=== PATIENT | female | born 1990 | race African-American/Black ===

== ENCOUNTER 2016-10-09 19:55 | Outpatient (CLI) | payer MEDICAID ==
[2016-10-09 20:56] LABS: APPEARANCE,URINE SLIGHTLY-CLOUDY; BILIRUBIN,URINE NEGATIVE (NEGATIVE); CALCIUM OXALATE CRYSTALS,URINE RARE /HPF; GLUCOSE, URINE NEGATIVE (NEGATIVE); KETONES,URINE NEGATIVE (NEGATIVE); LEUKOCYTE ESTERASE,URINE NEGATIVE (NEGATIVE); NITRITE,URINE NEGATIVE (NEGATIVE); PROTEIN,URINE NEGATIVE (NEGATIVE); UROBILINOGEN,URINE NEGATIVE mg/dL (<2.0)
--- NOTE | 2016-10-10 04:45 | L&D General Admission ---
General Admit Datetime Report Generated by CPN: 10/10/2016 04:45 INFORMATION Para: 3 (10/09/2016 21:23:Crystal Yakov, RN) Baby, Number in Womb: 1 (10/09/2016 21:23:Crystal [place], RN) CARE Height (in): 64 (10/09/2016 20:07:QS system process) DEMOGRAPHICS Home (10/09/2016 19:55:QS system process) LABS Hemoglobin: 8.9 L (10/09/2016 20:15:QS system process) Hematocrit: 28.5 L (10/09/2016 20:15:QS system process) MCV: 73 L (10/09/2016 20:15:QS system process) HIV Results: nonreactive (10/09/2016 20:52:Candis Nagy RN)
--- NOTE | 2016-10-10 04:45 | L&D Current Admission ---
Current Admit Datetime Report Generated by CPN: 10/10/2016 04:45 ADMISSION INFORMATION Chief Complaint: Contractions (10/09/2016 20:06:Crystal Yakov, SABRA)
--- NOTE | 2016-10-10 04:45 | L&D Discharge Summary ---
OB Discharge Summary Datetime Report Generated by CPN: 10/10/2016 04:45 DISCHARGE DIAGNOSIS Diagnosis/Symptoms: False Labor Diagnoses/Symptoms Other: Pt educated on dehydration and common discomforts of , pt instructed to go down to ED to rule out blood clot in left calf for pain and hx of blood clot. Gestation: 36.2 Number of Babies in Womb: 1 Parity: 3 DIET/ACTIVITY/RESTRICTIONS Diet: Regular Activity: Normal Activity TEACHING/INSTRUCTIONS/REFERRALS Instructions Given To: Yuni Isabella Instructions Understood: Patient Verbalized Understanding Referrals: None Educational Materials- Other: NST, Dehydration, labor DISCHARGE INFORMATION Discharged AMA: No Discharge Date/Time: 10/09/2016 21:24 Discharged To: Home Discharge Provider Name: Davis Accompanied By: self Discharge Method: Ambulatory Condition: Stable FOLLOW UP INFORMATION Follow Up With: [facility] Follow Up On: Tomorrow Follow Up Phone Number: [facility] -
--- NOTE | 2016-10-10 04:45 | L&D Admission Assessment ---
LD ADM ASMT Datetime Report Generated by CPN: 10/10/2016 04:45 PATIENT ASSESSMENT Assessment Type: Triage (10/09/2016 20:06:Crystal [place], RN) WEIGHT Weight (lb): 191 (10/09/2016 20:07:QS system process) Weight (kg): 86.8 (10/09/2016 20:07:QS system process) BMI: 32.8 (10/09/2016 20:07:QS system process) PAIN Pain Scale: 4 (10/09/2016 20:06:Crystal [place], RN) Pain Presence: Intermittent (10/09/2016 20:06:Crystal [place], RN) Pain Type: Contraction (10/09/2016 20:06:Crystal [place], RN) Pain Location: Abdomen; Back (10/09/2016 20:06:Crystal Yakov, RN) Pain Goal: 2 (10/09/2016 20:06:Crystal [place], RN) Pain Related to Contraction: Yes (10/09/2016 20:06:Crystal [place], RN) CONTRACTIONS Frequency (min): 0 (10/09/2016 20:42:Crystal [place], RN) Frequency (min): 0 (10/09/2016 20:20:Crystal [place], RN) Frequency (min): Q10 minutes (10/09/2016 20:06:Crystal Yakov, RN) Resting Tone [place]: Relaxed (10/09/2016 20:42:Crystal Yakov, RN) Resting Tone [place]: Relaxed (10/09/2016 20:20:Candis Nagy RN) Contraction Comments: pt sitting up drinking in bed (10/09/2016 20:42:Candis Nagy RN) VAGINAL EXAM Membranes Status: Intact (10/09/2016 20:06:Candis Nagy RN) NEURO Level of Consciousness: Fully Conscious (10/09/2016 20:06:Candis Nagy RN) DTR's/Clonus: DTRs 1+; No Clonus (10/09/2016 20:06:Candis Nagy RN) Headache: Denies (Annotations: Pt has pituitary tumor) (10/09/2016 20:06:Candis Nagy RN) Dizziness: No (10/09/2016 20:06:Candis Nagy RN) Blurred Vision: No (10/09/2016 20:06:Candis Nagy RN) Extremity Numbness/Tingling : None (10/09/2016 20:06:Candis Nagy RN) Extremity Movement: Full Range of Motion (10/09/2016 20:06:Crystal Yakov, RN) CARDIOVASCULAR Heart Rhythm: Regular (10/09/2016 20:06:Candis Nagy RN) Nailbeds: [place] (10/09/2016 20:06:Candis Nagy RN) Capillary Refill: Less than 3 Seconds (10/09/2016 20:06:Crystal Yakov, RN) Lower Extremities Edema: None (10/09/2016 20:06:Crystal Yakov, RN) Lower Extremities Edema Degree: None (10/09/2016 20:06:Crystal Yakov RN) Upper Extremities Edema: None (10/09/2016 20:06:Crystal [place] RN) Upper Extremities Edema Degree: None (10/09/2016 20:06:Crystal Yakov, RN) Facial Edema: None (10/09/2016 20:06:Crystal [place], RN) Benjamin's Sign Left Leg: Positive (Annotations: calf measurement 15.5 inches) (10/09/2016 20:06:Crystal Yakov RN) Benjamin's Sign Right Leg: Negative (Annotations: calf measurement 15in ) (10/09/2016 20:06:Crystal Yakov, RN) DVT RISK ASSESSMENT DVT Risk Age: Age less than 41 years (10/09/2016 20:06:Candis Nagy RN) DVT Risk BMI: BMI<31 (10/09/2016 20:06:Candis Nagy RN) DVT Risk Surgery: None Applicable (10/09/2016 20:06:Candis Nagy RN) DVT Risk Other: Patient History of SVT, DVT or PE (10/09/2016 20:06:Candis Nagy RN) DVT Risk Total: 3 (10/09/2016 20:06:QS system process) DVT Risk Text: High Risk (20-40%)- Consider stockings, compresssion device, pharmacological therapy per hospital policy (10/09/2016 20:06:QS system process) RESPIRATORY Respiratory Effort: Unlabored; Regular Rhythm; Equal Expansion (10/09/2016 20:06:Candis Nagy RN) Breath Sounds, Left: Clear and Equal (10/09/2016 20:06:Crystal [place], RN) Breath Sounds, Right: Clear and Equal (10/09/2016 20:06:Crystal Yakov, RN) Cough Productivity: None (10/09/2016 20:06:Crystal Yakov, RN) GASTROINTESTINAL Nausea/Vomiting: Denies (10/09/2016 20:06:Candis Nagy RN) Bowel Sounds: Normoactive (10/09/2016 20:06:Candis Nagy RN) RUQ Epigastric Pain: Denies (10/09/2016 20:06:Candis Nagy RN) Response to Antacids: Pain Relieved (10/09/2016 20:06:Candis Nagy RN) Bowel Patterns: Soft, Formed Stool (10/09/2016 20:06:Candis Nagy RN) Hemorrhoids: Present (10/09/2016 20:06:Candis Nagy RN) Diet Type: Regular diet (10/09/2016 20:06:Candis Nagy RN) Last Meal: 10/09/2016 15:00 (10/09/2016 20:06:Candis Nagy RN) GENITOURINARY Bladder: Nondistended (10/09/2016 20:06:Candis Nagy RN) Vaginal Bleeding: Small (10/09/2016 20:06:Candis Nagy RN) Vaginal Discharge Amount: Small (10/09/2016 20:06:Candis Nagy RN) Vaginal Discharge Color: White (10/09/2016 20:06:Candis Nagy RN) Vaginal Discharge Character: Thick (10/09/2016 20:06:Crystal Yakov, RN) INTEGUMENTARY Skin Color: Normal for Race (10/09/2016 20:06:Crystal Yakov, RN) Skin Temperature: Warm (10/09/2016 20:06:Candis [place], RN) Skin Moisture: Dry (10/09/2016 20:06:Crystal [place], RN) GLORY SKIN ASSESSMENT Glory Scale Sensory Perception: No Impairment- Responds to verbal commands. Has no sensory deficit which would limit ability to feel or voice pain or discomfort (10/09/2016 20:06:Candis Nagy RN) Glory Scale Moisture: Rarely Moist- Skin is usually dry. Linen only requires changing at routine intervals (10/09/2016 20:06:Candis Nagy RN) Glory Scale Activity: Walks Frequently- Walks outside the room at least twice a day and inside room at least every 2 hours during the day. (10/09/2016 20:06:Candis Nagy RN) Glory Scale Mobility: No Limitations- Makes major and frequent changes in position without assistance (10/09/2016 20:06:Candis Nagy RN) Glory Scale Nutrition: Excellent- Eats most of every meal. Never refuses a meal. Usually eats a total of 4 or more servings of meat and dairy products. Occasionally eats between meals. Does not require supplementation (10/09/2016 20:06:Candis Nagy RN) Glory Scale Friction and Shear: No Apparent Problem- Moves in bed and in chair independently and has sufficient muscle strength to lift up completely during move. Maintains good position in bed or chair at all times (10/09/2016 20:06:Candis Nagy RN) Glory Scale Total: 23 (10/09/2016 20:06:QS system process) Glory Scale Risk: No Risk of Pressure Ulcer Noted at this Time (10/09/2016 20:06:QS system process) SUPPORT Emotional State: Calm/Relaxed (10/09/2016 20:06:Candis Nagy RN) SAFETY Call [place] Within Reach: Yes (10/09/2016 20:06:Candis Nagy RN) Side Rails Up: Yes (10/09/2016 20:06:Candis Nagy RN) Bed Wheels Locked: Yes (10/09/2016 20:06:Candis Nagy RN) Arm Bands Present: Yes (10/09/2016 20:06:Candis Nagy RN) Isolation: [place] (10/09/2016 20:06:Candis Nagy RN) FALL SCREEN Fall Risk History of Falling: (0) No (10/09/2016 20:06:Candis Nagy RN) Fall Risk Secondary Diagnosis: (0) No (10/09/2016 20:06:Candis Nagy RN) Fall Risk Ambulatory Aid: (0) None/Bedrest/Wheelchair/Nurse Assist (10/09/2016 20:06:Candis Nagy RN) Fall Risk IV Therapy: (0) No (10/09/2016 20:06:Candis Nagy RN) Fall Risk Gait: (0) Normal/Bedrest/Immobile (10/09/2016 20:06:Candis Nagy RN) Fall Risk Mental Status: (0) Oriented to Own Ability (10/09/2016 20:06:Candis Nagy RN) Fall Risk Score: 0 (10/09/2016 20:06:QS system process) Fall Risk Score Definition: No Risk: No action required (10/09/2016 20:06:QS system process) RECENT TRAVEL/INFECTIOUS DISEASE Recent Exp Communicable Disease: No (10/09/2016 20:06:Candis Nagy RN) Cough or Fever: No (10/09/2016 20:06:Candis Nagy RN) Foreign Travel Past 10 Days: No (10/09/2016 20:06:Candis Nagy RN) Open Wounds or Sores: No (10/09/2016 20:06:Candis Nagy RN) Prior Antibiotic Resistance Tx: No (10/09/2016 20:06:Candis Nagy RN) Cultures Obtained: Not Applicable (10/09/2016 20:06:Candis Nagy RN) Isolation Initiated: No (10/09/2016 20:06:Candis Nagy RN) Pt/Family Education: Not Applicable (10/09/2016 20:06:Candis Nagy RN) BABY A FHR Baseline Rate (bpm) Baby A: 120 (10/09/2016 20:20:Candis Nagy RN) Variability Baby A: Moderate 6-25 bpm (10/09/2016 20:20:Candis Nagy RN) Accelerations Baby A: 15X15 (10/09/2016 20:20:Candis Nagy RN) Decelerations Baby A: None (10/09/2016 20:20:Candis Nagy RN)
--- NOTE | 2016-10-10 04:45 | L&D Flow Sheet ---
LD Flowsheet Datetime Report Generated by CPN: 10/10/2016 04:45 Datetime: 10/09/2016 21:14 Vital Signs Stage of : OB Triage (Candis Nagy RN) Communication Comments: Report given to Amina charge nurse in ED, pt offered wheelchair, pt wishes to ambulate to ED. pt off of the unit. Pt care relinquished. (Candis Nagy RN) Datetime: 10/09/2016 21:07 Vital Signs Stage of : OB Triage (Candis Nagy RN) Teaching Instructional Method: Verbal; Patient Instructed; Verbalized Understanding (Candis Nagy RN) Plan of Care: Plan of Care Discussed (Candis Nagy RN) Pain Management: Pain Scale/Goals; Comfort Measures (Candis Nagy RN) Related: Common Discomforts of ; Maternal Physical Changes; Hydration; Activity and Rest (Candis Nagy RN) Teaching Comments: Educated pt on common discomforts of and the need for increased hydration, pt verbalized understanding, instructed pt to go down to ED to rule out blood clot. pt verbalized understanding and stated she wishes to ambulate to ED. (Crystal Yakov, RN) Datetime: 10/09/2016 21:02 Vital Signs Stage of : OB Triage (Crystal Yakov, RN) Provider Reviewed Strip: Yes (Crystal [place], RN) Strip Reviewed by: Laura Nagy RN (Crystal [place], RN) Communication Communication: RN Reviewed Strip; Provider Orders Received; Call/Page Placed to Provider (Candis Nagy RN) Provider Notified (Name): Ryan (Candis Nagy RN) Notification Reason: Status Update; Status; Pain (Candis Nagy RN) Communication Comments: Notified Dr. Davis of pt complaint of contractions and calf pain in left calf. Ruled out active labor. Received orders to have pt go to ED for pain in calf due to Hx of blood clot. (Candis Nagy RN) Datetime: 10/09/2016 20:42 Uterine Activity Monitor Mode: External; Palpation (Candis Nagy RN) Frequency (min): 0 (Candis Nagy RN) Resting Tone (Palpate): Relaxed (Candis Nagy RN) Contraction Comments: pt sitting up drinking in bed (Candis Nagy RN) I/O Interventions: Clear Liquids Given (Candis Nagy RN) Datetime: 10/09/2016 20:20 Uterine Activity Monitor Mode: External; Palpation (Crystal [place], RN) Frequency (min): 0 (Crystal Yakov, RN) Resting Tone (Palpate): Relaxed (Crystal Yakov, RN) Assessment A Monitor Mode: External US (Crystal [place], RN) FHR Baseline Rate : 120 (Crystal Yakov, RN) Variability: Moderate 6-25 bpm (Crystal [place], RN) Accelerations: 15X15 (Crystal [place], RN) Decelerations: None (Crystal [place], RN) Patient Care Patient Position/Activity: Left Lateral; Semi-Fowlers (Crystal [place], RN) Datetime: 10/09/2016 20:15 NBP Sys/Rachel/Mean (mmHg): 130 (QS system process) : 64 (QS system process) : 88 (QS system process) Pulse: 77 (QS system process) Respirations: 18 (Crystal [place], RN) LaborFlag: Antepartum (QS system process) Datetime: 10/09/2016 20:06 Vital Signs Stage of : Antepartum (Crystal Yakov, RN) Frequency (min): Q10 minutes (Crystal Yakov, RN) Pain Pain Scale: 4 (Crystal [place], RN) Pain Presence: Intermittent (Crystal Yakov, RN) Pain Type: Contraction (Crystal Yakov, RN) Pain Location: Abdomen; Back (Crystal [place], RN) Pain Goal: 2 (Crystal [place], RN) Pain Relief Measures: Comfort Measures (Crystal Yakov, RN) Pain Coping: Talking Through Contractions (Crystal Yakov, RN) Vaginal Exam Membrane Status: Intact (Candis Nagy, SABRA) Vaginal Bleeding: None (Candis Nagy, RN) Maternal Assessment Level of Consciousness: Fully Conscious (Candis Nagy RN) DTR's/Clonus: DTRs 1+; No Clonus (Candis Nagy RN) Headache: Denies (Annotations: Pt has pituitary tumor) (Candis Nagy RN) Breath Sounds, Left: Clear and Equal (Candis Nagy RN) Breath Sounds, Right: Clear and Equal (Candis Nagy RN) Nausea/Vomiting: Denies (Candis Nagy RN) RUQ Epigastric Pain: Denies (Candis Nagy RN) LaborFlag: Antepartum (QS system process)
--- NOTE | 2016-10-10 04:46 | Antepartum Discharge Summary ---
Antepartum DC Datetime Report Generated by CPN: 10/10/2016 04:45 DIET/ACTIVITY/RESTRICTIONS Diet: Regular (10/09/2016 21:23:Crystal Yakov, RN) Activity: Normal Activity (10/09/2016 21:23:Crystal Yakov, RN) TEACHING/INSTRUCTIONS/REFERRALS Instructions Given To: Yuni [place] (10/09/2016 21:23:Crystal [place], RN) Instructions Understood: Patient Verbalized Understanding (10/09/2016 21:23:Crystal [place], RN) Referrals: None (10/09/2016 21:23:Candis Nagy RN) Educational Materials- Other: NST, Dehydration, labor (10/09/2016 21:23:Candis Nagy RN) DISCHARGE INFORMATION Discharged AMA: No (10/09/2016 21:23:Candis Nagy RN) Discharge Date/Time: 10/09/2016 21:24 (10/09/2016 21:23:Candis Nagy RN) Discharged To: Home (10/09/2016 21:23:Candis Nagy RN) Discharge Provider Name: Davis (10/09/2016 21:23:Candis Nagy RN) Discharge Method: Ambulatory (10/09/2016 21:23:Candis Nagy RN) Condition: Stable (10/09/2016 21:23:Candis Nagy RN) FOLLOW UP INFORMATION Follow Up With: [facility] (10/09/2016 21:23:Candis Nagy RN) Follow Up On: Tomorrow (10/09/2016 21:23:Candis Nagy RN) Follow Up Phone Number: [facility] - (10/09/2016 21:23:Candis Nagy RN)
--- NOTE | 2016-10-10 11:51 | Non Stress Test Report ---
Non Stress Test Datetime Report Generated by CPN: 10/10/2016 11:50 EGA NST: 33.3 Indication for Study: Ordered by Provider Temperature - NST: 98.4 Pulse - NST: 77 RESP - NST: 18 NBPSYS NST: 130 NBPDIA NST: 64 Monitor Explained: Monitor Explained; Test Explained; Patient Verbalized Understanding Time on Monitor: 10/09/2016 20:13 Time off Monitor: 10/09/2016 21:07 NST Duration: 59925 NST Interventions: PO Hydration Physician Notified NST: Davis Movement : Present Contraction Frequency : 2 FHR Baseline : 120 Accelerations : 15X15 Decelerations : None Variability : Moderate 6-25bpm NST Review: Meets Criteria for Reactive NST NST Review and Verified By : Jailyn Cantor RN NST Results: Reactive Report Trigger: Send Report
[2016-10-11 15:58] LABS: URINE BARBITURATES SCREEN NEGATIVE; URINE METHADONE SCREEN NEGATIVE; URINE PHENCYCLIDINE SCREEN NEGATIVE
== END 2016-10-09 21:14 | disposition other institution (70) ==
LOC: LC 19:55
PROVIDERS: ATTEND Obstetrics & Gynecology
PROC: 4A1HXCZ Monitoring of Products of Conception, Cardiac Rate, External Approach (ICD-10-PCS; principal; 2016-10-09)
DX: O47.03 False labor before 37 completed weeks of gestation, third trimester (principal); O99.89 Other specified diseases and conditions complicating pregnancy, childbirth and the puerperium; M79.662 Pain in left lower leg; Z3A.36 36 weeks gestation of pregnancy
CPT/HCPCS: 59025; 80307; 81001

== ENCOUNTER 2016-10-09 21:26 | Emergency (ER) | payer MEDICAID ==
--- NOTE | 2016-10-09 21:48 | ER Document Report ---
ED Medical Screen (RME) - General Stated Complaint: POSSIBLE BLOOD CLOTS Time seen by provider: 21:45 Mode of Arrival: Ambulatory Information source: Patient Notes: 25 yo female 36 weeks sent down from labor and delivery, she was in for labor, which was negative for actic elabor. She is c/of left posterior knee pain which radiates up and down leg for 2 eweks. Hx DVT in that leg with last . On lovenox already,40 mg (?) twice daily. TRAVEL OUTSIDE OF THE [place] IN LAST 30 DAYS: No - Related Data Allergies/Adverse Reactions: shrimp Allergy (Uncoded 09/19/16 10:53) Past Medical History Pulmonary Medical History: Reports: Hx Asthma, Hx Bronchitis Renal/ Medical History: Reports: Hx Kidney Stones - Immunizations Hx Diphtheria, Pertussis, Tetanus Vaccination: Yes
[2016-10-09 22:26] LABS: ABSOLUTE EOSINOPHILS # (AUTO) 0.2 10^3/uL (0.0-0.6); ABSOLUTE LYMPHOCYTES (AUTO) 2.1 10^3/uL (0.5-4.7); ABSOLUTE MONOCYTES (AUTO) 0.4 10^3/uL (0.1-1.4); ABSOLUTE NEUT (AUTO) 3.4 10^3/uL (1.7-8.2); BASOPHILS % (AUTO) 0.6 % (0-2); EOSINOPHILS % (AUTO) 2.5 % (0-6); HEMATOCRIT 28.5 % (36.0-47.0); HEMOGLOBIN 8.9 g/dL (12.0-15.5); HGB HCT DIFFERENCE -1.8; LYMPHOCYTES % (AUTO) 34.7 % (13-45); MEAN CORPUSCULAR HEMOGLOBIN 22.7 pg (27.0-33.4); MEAN CORPUSCULAR HGB CONC 31.2 g/dL (32.0-36.0); MEAN CORPUSCULAR VOLUME 73 fl (80-97); MONOCYTES % (AUTO) 6.8 % (3-13); RED BLOOD COUNT 3.91 10^6/uL (3.72-5.28); SEGMENTED NEUTROPHILS % (AUTO) 55.4 % (42-78); WHITE BLOOD COUNT 6.1 10^3/uL (4.0-10.5)
[2016-10-09 22:31] LABS: PROTHROMBIN TIME 12.9 SEC (11.4-15.4)
[2016-10-09 22:32] LABS: PARTIAL THROMBOPLASTIN TIME 30.3 SEC (23.5-35.8)
--- NOTE | 2016-10-09 22:48 | ER Document Report ---
ED General - General Chief Complaint: Leg Pain Stated Complaint: POSSIBLE BLOOD CLOTS Mode of Arrival: Ambulatory Information source: Patient Notes: Patient presents to the emergency department from L&D. She reports she was up in L&D because she thought she was in active labor but discovered she was not. She was sent to the emergency department with complaints of leg pain. She reports history of DVTs with her last . Patient is currently taking Lovenox daily. She denies fever vomiting diarrhea trauma. She denies recent trip. She reports she's had the leg pain for 2 weeks. TRAVEL OUTSIDE OF THE [place] IN LAST 30 DAYS: No - HPI Onset: Other - 2 weeks Onset/Duration: Persistent Quality of pain: Achy Severity: Severe Pain Level: 4 Associated symptoms: None Exacerbated by: Denies Relieved by: Denies Similar symptoms previously: Yes Recently seen / treated by doctor: Yes - Related Data Allergies/Adverse Reactions: shrimp Allergy (Uncoded 10/09/16 21:50) Past Medical History - General Information source: Patient Last Menstrual Period: due 11/04/2016 - Social History Smoking Status: Never Smoker Cigarette use (# per day): No Frequency of alcohol use: None Drug Abuse: None Lives with: Family Family History: Reviewed & Not Pertinent Patient has suicidal ideation: No Patient has homicidal ideation: No - Past Medical History Cardiac Medical History: Reports: Hx DVT Pulmonary Medical History: Reports: Hx Asthma, Hx Bronchitis Renal/ Medical History: Reports: Hx Kidney Stones Surgical Hx: Negative - Immunizations Hx Diphtheria, Pertussis, Tetanus Vaccination: Yes Hx Pneumococcal Vaccination: 04/10/14 Review of Systems - Review of Systems Notes: Review HPI for review of systems., All other systems negative Physical Exam - Vital signs Vitals: Temp Pulse Resp BP Pulse Ox 97.4 F 74 17 132/75 H 98 10/09/16 21:50 10/09/16 21:50 10/09/16 21:50 10/09/16 21:50 10/09/16 21:50 - Notes Notes: PHYSICAL EXAMINATION: GENERAL: Well-appearing and in no acute distress HEAD: Atraumatic, normocephalic. EYES: Pupils equal round extraocular movements intact, sclera anicteric, conjunctiva are normal. ENT: nares patent, Moist mucous membranes. NECK: Normal range of motion, supple without lymphadenopathy LUNGS: CTAB and equal. No wheezes rales or rhonchi. HEART: Regular rate and rhythm without murmurs ABDOMEN: , reports contractions that come/go. EXTREMITIES: Normal range of motion, no pitting edema. No cyanosis. LLL with tenderness to upper calf, no erythema, no warmth, neg homans NEUROLOGICAL: Cranial nerves grossly intact. Normal sensory/motor PSYCH: Normal mood, normal affect. SKIN: Warm, Dry, normal turgor, no rashes or lesions noted Course - Re-evaluation Re-evalutation: 10/09/16 22:53 Patient waiting for Doppler, tylenol ordered for leg pain. 10/10/16 Patient instructed on results. Patient instructed to follow up with her SIZE MAKER this week. She verbalized understanding denies pain at this time. - Vital Signs Vital signs: Temp Pulse Resp BP Pulse Ox 97.8 F 71 16 118/64 99 10/10/16 00:36 10/10/16 00:36 10/10/16 00:36 10/10/16 00:36 10/10/16 00:36 - Laboratory Result Diagrams: 10/09/16 20:15 10/09/16 20:15 Laboratory results interpreted by me: 10/09/16 10/09/16 20:15 20:15 Hgb 8.9 L Hct 28.5 L MCV 73 L MCH 22.7 L MCHC 31.2 L RDW 16.0 H Total Protein 6.1 L Albumin 3.0 L - Diagnostic Test Radiology reviewed: Reports reviewed - IMPRESSION: NO EVIDENCE DVT OR SVT IN THE LEFT LEG Discharge - Discharge Clinical Impression: Left leg pain Condition: Stable Disposition: HOME, SELF-CARE Additional Instructions: *You have been evaluated for left leg pain *Negative doppler, no DVT *Rest /Elevate your leg *Follow up with 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 *Return to ED for worsening condition, changes, needs Forms: Elevated Blood Pressure, Return to Work Referrals: BOBBY STEARNS MD [Primary Care Provider] - Follow up in 3-5 days
[2016-10-09 22:51] LABS: ALANINE AMINOTRANSFERASE 32 U/L (9-52); ALKALINE PHOSPHATASE 126 U/L (38-126); ANION GAP 12 (5-19); ASPARTATE AMINO TRANSFERASE 22 U/L (14-36); BILIRUBIN,TOTAL 0.7 mg/dL (0.2-1.3); BLOOD UREA NITROGEN 7 mg/dL (7-20); CALCIUM 9.4 mg/dL (8.4-10.2); CARBON DIOXIDE 22 mmol/L (22-30); CHLORIDE 105 mmol/L (98-107); GLUCOSE 88 mg/dL (75-110); POTASSIUM 3.9 mmol/L (3.6-5.0); SODIUM 138.7 mmol/L (137-145); TOTAL PROTEIN 6.1 g/dL (6.3-8.2)
[2016-10-09] MEDS ORDERED: ACETAMINOPHEN 325 MG TABLET PO ONE (22:53)
[2016-10-10 00:38] VITALS: BP 118/64
== END 2016-10-10 00:35 | disposition home or self-care (01) ==
LOC: ER 21:26 → EEVIPCON 21:26 → ER 10-10 00:35
DX: M79.605 Pain in left leg (principal); Z79.899 Other long term (current) drug therapy
CPT/HCPCS: 99284; 36415; 85025; 85610; 85730; 80053; 93971; J3490

== ENCOUNTER 2016-10-21 15:37 | Emergency (ER) | payer MEDICAID ==
[2016-10-21 16:02] VITALS: BP 129/65
--- NOTE | 2016-10-21 16:08 | ER Document Report ---
ED Medical Screen (RME) - General Stated Complaint: DIFFICULTY BREATHING Time seen by provider: 16:04 Mode of Arrival: Ambulatory Information source: Patient Notes: 25-year-old female presents to ED for shortness of breath cough wheezing and vomiting with abdominal cramping. She is 38 weeks . States she went up to labor and delivery and they sent her down to ED to check out the coughing and wheezing before they would check her out. Patient states she's had the coughing and wheezing for 3 days with a runny nose. States she started out with vomiting then she started with the coughing and wheezing. Patient states on 3 days ago she had a fever of 102.2 but has not had a fever since then. I have greeted and performed a rapid initial assessment of this patient. A comprehensive ED assessment and evaluation of the patient, analysis of test results and completion of medical decision making process will be conducted by an additional ED providers. TRAVEL OUTSIDE OF THE [place] IN LAST 30 DAYS: No - Related Data Allergies/Adverse Reactions: shrimp Allergy (Uncoded 10/09/16 21:50) Past Medical History - Past Medical History Cardiac Medical History: Reports: Hx DVT Pulmonary Medical History: Reports: Hx Asthma, Hx Bronchitis Renal/ Medical History: Reports: Hx Kidney Stones - Immunizations Hx Diphtheria, Pertussis, Tetanus Vaccination: Yes Physical Exam - Vital signs Vitals: Temp Pulse Resp BP Pulse Ox 97.3 F 86 20 129/65 H 100 10/21/16 16:01 10/21/16 16:01 10/21/16 16:01 10/21/16 16:01 10/21/16 16:01 Course - Vital Signs Vital signs: Temp Pulse Resp BP Pulse Ox 97.3 F 86 20 129/65 H 100 10/21/16 16:01 10/21/16 16:01 10/21/16 16:01 10/21/16 16:01 10/21/16 16:01
== END 2016-10-21 17:55 | disposition left against medical advice (07) ==
LOC: ER 15:37
DX: Z53.9 Procedure and treatment not carried out, unspecified reason (principal); R06.02 Shortness of breath; R05 Cough; R06.2 Wheezing; R11.10 Vomiting, unspecified; R10.9 Unspecified abdominal pain; Z3A.38 38 weeks gestation of pregnancy; R50.9 Fever, unspecified
CPT/HCPCS: 99281

== ENCOUNTER → 2016-10-21 | Outpatient (CLI) | payer MEDICAID | LOC: LC 15:09 | PROVIDERS: ATTEND Obstetrics & Gynecology | DX: Z53.9 Procedure and treatment not carried out, unspecified reason (principal) ==

== ENCOUNTER 2016-10-24 16:11 | Outpatient (CLI) | payer MEDICAID ==
--- NOTE | 2016-10-24 16:19 | Non Stress Test Report ---
Non Stress Test Datetime Report Generated by CPN: 10/24/2016 16:19 DEMOGRAPHIC EGA NST: 36.2 INDICATION Indication for Study: Ordered by Provider VITAL SIGNS Temperature - NST: 98.4 Pulse - NST: 77 RESP - NST: 18 NBPSYS NST: 130 NBPDIA NST: 64 MONITORING Monitor Explained: Monitor Explained; Test Explained; Patient Verbalized Understanding Time on Monitor: 10/09/2016 20:13 Time off Monitor: 10/09/2016 21:07 NST Duration: 54 NST INTERVENTIONS NST Interventions: PO Hydration Physician Notified NST: Davis BABY A: [id number] BABY A Movement : Present Contraction Frequency : 2 FHR Baseline : 120 Accelerations : 15X15 Decelerations : None Variability : Moderate 6-25bpm NST Review: Meets Criteria for Reactive NST NST Review and Verified By : Jailyn Cantor RN NST Results: Reactive NST REPORT Report Trigger: Send Report
[2016-10-24 16:48] LABS: APPEARANCE,URINE CLEAR; BILIRUBIN,URINE NEGATIVE (NEGATIVE); GLUCOSE, URINE NEGATIVE (NEGATIVE); KETONES,URINE NEGATIVE (NEGATIVE); LEUKOCYTE ESTERASE,URINE NEGATIVE (NEGATIVE); NITRITE,URINE NEGATIVE (NEGATIVE); PROTEIN,URINE NEGATIVE (NEGATIVE); URINE SPECIFIC GRAVITY 1.014; UROBILINOGEN,URINE NEGATIVE mg/dL (<2.0)
[2016-10-24 16:55] LABS: AMNISURE (ROM) NEGATIVE (NEGATIVE)
[2016-10-24 17:11] LABS: URINE BARBITURATES SCREEN NEGATIVE; URINE METHADONE SCREEN NEGATIVE; URINE PHENCYCLIDINE SCREEN NEGATIVE
--- NOTE | 2016-10-24 17:39 | Non Stress Test Report ---
Non Stress Test Datetime Report Generated by CPN: 10/24/2016 17:39 DEMOGRAPHIC EGA NST: 38.3 INDICATION Indication for Study: Ordered by Provider; Other MONITORING Monitor Explained: Monitor Explained; Test Explained; Patient Verbalized Understanding Time on Monitor: 10/24/2016 16:37 Time off Monitor: 10/24/2016 17:26 NST Duration: 49 NST INTERVENTIONS NST Interventions: PO Hydration; Reposition Patient Physician Notified NST: Dr. Rock BABY A Movement : Present Contraction Frequency : irregular FHR Baseline : 145 Accelerations : 15X15 Decelerations : None Variability : Moderate 6-25bpm NST Review: Meets Criteria for Reactive NST NST Review and Verified By : Andrea Carr RN NST Results: Reactive NST REPORT Report Trigger: Send Report
== END 2016-10-24 17:33 | disposition home or self-care (01) ==
LOC: LC 16:11
PROVIDERS: ATTEND Obstetrics & Gynecology
PROC: 4A1HXCZ Monitoring of Products of Conception, Cardiac Rate, External Approach (ICD-10-PCS; principal; 2016-10-24)
DX: O47.1 False labor at or after 37 completed weeks of gestation (principal); Z3A.38 38 weeks gestation of pregnancy
CPT/HCPCS: 59025; 80307; 81005; 84112

== ENCOUNTER 2016-11-04 04:33 | Inpatient (IN) | payer MEDICAID ==
[2016-11-04] MEDS ORDERED: PENICILLIN G POTASSIUM 5,000,000 UNIT in DEXTROSE 5%-WATER 100 ML IV ONE (04:46)
[2016-11-04] MEDS ORDERED: RINGERS SOLUTION,LACTATED 1,000 ML IV ONE (04:46)
[2016-11-04] MEDS ORDERED: RINGERS SOLUTION,LACTATED 1,000 ML IV PRN (04:46)
[2016-11-04] MEDS ORDERED: OXYTOCIN/NORMAL SALINE 20 UNIT/1,000 ML RTUINJ ONE ×2 (04:47→06:21)
[2016-11-04] MEDS ORDERED: LIDOCAINE 1% INJ-PF (10 MG/ML) 30 ML SDV ONE (04:47)
[2016-11-04] MEDS ORDERED: MISOPROSTOL 0.2 MG TABLET ONE (04:47)
[2016-11-04] MEDS ORDERED: PENICILLIN G-K 5 MILLION UNIT VIAL ONE (04:48)
[2016-11-04] MEDS ORDERED: OXYTOCIN 10 UNIT/ML VIAL ONE (04:48)
[2016-11-04 05:17] LABS: ABSOLUTE BASOPHILS # (AUTO) 0.1 10^3/uL (0.0-0.2); ABSOLUTE EOSINOPHILS # (AUTO) 0.1 10^3/uL (0.0-0.6); ABSOLUTE LYMPHOCYTES (AUTO) 4.8 10^3/uL (0.5-4.7); ABSOLUTE NEUT (AUTO) 3.4 10^3/uL (1.7-8.2); BASOPHILS % (AUTO) 0.6 % (0-2); EOSINOPHILS % (AUTO) 1.4 % (0-6); HEMATOCRIT 29.4 % (36.0-47.0); HEMOGLOBIN 9.2 g/dL (12.0-15.5); HGB HCT DIFFERENCE -1.8; LYMPHOCYTES % (AUTO) 51.7 % (13-45); MEAN CORPUSCULAR HEMOGLOBIN 22.4 pg (27.0-33.4); MEAN CORPUSCULAR HGB CONC 31.3 g/dL (32.0-36.0); MEAN CORPUSCULAR VOLUME 72 fl (80-97); MONOCYTES % (AUTO) 10.3 % (3-13); RED CELL DISTRIBUTION WIDTH 16.7 % (11.5-14.0); WHITE BLOOD COUNT 9.3 10^3/uL (4.0-10.5)
[2016-11-04 05:22] LABS: APPEARANCE,URINE CLOUDY; BILIRUBIN,URINE NEGATIVE (NEGATIVE); GLUCOSE, URINE NEGATIVE (NEGATIVE); KETONES,URINE NEGATIVE (NEGATIVE); LEUKOCYTE ESTERASE,URINE LARGE (NEGATIVE); NITRITE,URINE NEGATIVE (NEGATIVE); PROTEIN,URINE 30 mg/dL (NEGATIVE); URINE SPECIFIC GRAVITY 1.012; UROBILINOGEN,URINE NEGATIVE mg/dL (<2.0)
[2016-11-04] MEDS ORDERED: IBUPROFEN 800 MG TABLET ONE (05:38)
[2016-11-04 05:44] LABS: URINE BARBITURATES SCREEN NEGATIVE; URINE METHADONE SCREEN NEGATIVE; URINE OPIATES LOW NEGATIVE; URINE PHENCYCLIDINE SCREEN NEGATIVE
[2016-11-04] MEDS ORDERED: ZOLPIDEM TARTRATE 5 MG TABLET PO PRN (06:54)
[2016-11-04] MEDS ORDERED: ACETAMINOPHEN WITH CODEINE #3 TABLET PO PRN (06:54)
[2016-11-04] MEDS ORDERED: OXYTOCIN/NORMAL SALINE 1,000 ML IV PRN (06:54)
[2016-11-04] MEDS ORDERED: MEASLES,MUMPS&RUBELLA VACC/PF 0.5 ML VIAL SUBCUT PRN (06:54)
[2016-11-04] MEDS ORDERED: BENZOCAINE/MENTHOL AEROSOL SPRAY 56 ML TOP PRN (06:54)
[2016-11-04] MEDS ORDERED: DIBUCAINE 1% OINTMENT 28 GM TP PRN (06:54)
[2016-11-04] MEDS ORDERED: DIPH/PERTUSS(ACELL)/TETANUS VAC/PF 0.5 ML SYR (>=10YO) IM PRN (06:54)
[2016-11-04] MEDS ORDERED: ACETAMINOPHEN WITH CODEINE #3 TABLET ONE (07:12)
--- NOTE | 2016-11-04 08:01 | L&D Flow Sheet ---
LD Flowsheet Datetime Report Generated by CPN: 11/04/2016 08:00 Datetime: 11/04/2016 07:32 NBP Sys/Rachel/Mean (mmHg): 122 (QS system process) : 79 (QS system process) : 96 (QS system process) Pulse: 78 (QS system process) Pain Assessment Comments: Pt c/o shooting pain down Rt thigh. Waterproofer assessed leg, no redness, bruising, or heat noted. Asked pt to report any worsening pain. (Crystal Maldonado RN) Datetime: 11/04/2016 07:17 Pain [facility]: 5 [facility]: [facility]termittent ([facility] Pain Type: Cramping ([facility] ) Pain Location: Abdomen ([facility] Pain Goal: 0 ([facility] ) Pain Relief Measures: Pain Medication Given; Comfort Measures ([facility]) Datetime: 11/04/2016 07:11 NBP Sys/Rachel/Mean (mmHg): 120 (QS system process) : 78 (QS system process) : 94 (QS system process) Pulse: 70 (QS system process) Datetime: 11/04/2016 06:17 NBP Sys/Rachel/Mean (mmHg): 139 (QS system process) : 74 (QS system process) : 94 (QS system process) Pulse: 74 (QS system process) Datetime: 11/04/2016 06:10 Communication Additional Nursing Comments: Del of viable female. (Lilli Clif, RN) Datetime: 11/04/2016 06:01 NBP Sys/Rachel/Mean (mmHg): 127 (QS system process) : 82 (QS system process) : 97 (QS system process) Pulse: 80 (QS system process) Datetime: 11/04/2016 05:46 NBP Sys/Rachel/Mean (mmHg): 130 (QS system process) : 89 (QS system process) : 106 (QS system process) Pulse: 86 (QS system process) Respirations: 18 (Lilli Clif, RN) Datetime: 11/04/2016 05:39 Frequency (min): q 2 (Lilli Clif, RN) Pain Pain Scale: 5 (Lilli Clif, RN) Pain Presence: Intermittent (Lilli Clif, RN) Pain Type: Sharp (Lilli Clif, RN) Pain Location: Abdomen (Lilli Clif, RN) Pain Coping: Breathing Through Contractions (Lilli Clif, RN) Vaginal Bleeding: Scant (Lilli Clif, RN) Maternal Assessment Level of Consciousness: Fully Conscious (Lilli Clif, RN) DTR's/Clonus: DTRs 1+ (Lilli Clif, RN) Headache: Denies (Lilli Clif, RN) Breath Sounds, Left: Clear and Equal (Lilli Clif, RN) Breath Sounds, Right: Clear and Equal (Lilli Clif, RN) Nausea/Vomiting: Present (Annotations: states vomited twice at home.) (Lilli Clif, RN) RUQ Epigastric Pain: Denies (Lilli Clif, RN) Datetime: 11/04/2016 05:31 NBP Sys/Rachel/Mean (mmHg): 132 (QS system process) : 91 (QS system process) : 106 (QS system process) Pulse: 80 (QS system process) Datetime: 11/04/2016 05:16 Vital Signs Stage of : Recovery (Lilli Clif, RN) NBP Sys/Rachel/Mean (mmHg): 131 (QS system process) : 82 (QS system process) : 102 (QS system process) Pulse: 106 (QS system process) Respirations: 18 (Lilli Clif, RN) Pain Pain Scale: 0 (Lilli Clif, RN) Datetime: 11/04/2016 05:12 NBP Sys/Rachel/Mean (mmHg): 129 (QS system process) : 73 (QS system process) : 96 (QS system process) Pulse: 93 (QS system process) LaborFlag: Labor (QS system process) Datetime: 11/04/2016 05:09 Communication Comments: Nsy called for delivery due to meconium (Siri Lattibeaudeir, RN) Datetime: 11/04/2016 05:06 Vaginal Exam Membrane Status: Meconium (Lilli Clif, RN) Membranes Rupture Method: Artificial (Lilli Clif, RN) Amniotic Fluid Color: Moderate Meconium (Lilli Clif, RN) Membrane Comments: per Dr. Jaramillo (Lilli Clif, RN) Datetime: 11/04/2016 05:02 Uterine Activity Monitor Mode: External (Lilli Clif, RN) Frequency (min): 1.5-3 (Lilli Clif, RN) Quality: Moderate to Strong (Lilli Clif, RN) Duration (sec): 50-70 (Lilli Clif, RN) Resting Tone (Palpate): Relaxed (Lilli Clif, RN) Assessment A Monitor Mode: External US (Lilli Clif, RN) FHR Baseline Rate : 125 (Lilli Clif, RN) FHR Baseline Changes: No Baseline Change (Lilli Clif, RN) Variability: Moderate 6-25 bpm (Lilli Clif, RN) Accelerations: 15X15 (Lilli Clif, RN) Decelerations: None (Lilli Clif, RN) Datetime: 11/04/2016 04:55 Patient Care Comments: Consents signed. (Lilli Clif, RN) Datetime: 11/04/2016 04:54 Medications Antibiotics: Penicillin IV (Units) @ 5,000,000 (Lilli Clif, RN) Datetime: 11/04/2016 04:53 Patient Care IV/Blood Work: IV Started (Lilli Menezes RN) Patient Care Comments: 18 g started in R arm with 2nd attempt. (Lilli Menezes RN) Datetime: 11/04/2016 04:47 NBP Sys/Rachel/Mean (mmHg): 134 (QS system process) : 79 (QS system process) : 100 (QS system process) Pulse: 96 (QS system process) LaborFlag: Labor (QS system process)
--- NOTE | 2016-11-04 08:14 | Delivery Summary ---
Del Sum A-C Datetime Report Generated by CPN: 11/04/2016 08:13 ADMISSION DATA Chief Complaint: Uterine Contractions Indication for Induction: Not Applicable Admission Impression: Term, Intrauterine ; Active Labor; Intact Membranes Admit Provider Comments: PCN for unknown GBS status DELIVERY PERSONNEL Delivery Doctor:: Dorian Jaramillo DO Labor and Delivery Nurse:: Lilli Menezes RNgun striper Nurse:: Umu Cantor RN Manager Visual/AUTOMOBILE ASSEMBLY SUPERVISOR: Keya Semar, STONE CUTTER MATERNAL INFORMATION Delivery Anesthesia: Local Medications After Delivery: Pitocin Drip 20 Units/1000ml NSS Estimated Blood Loss (ml): 200 Maternal Complications: Precipitous Labor (<3hrs) Provider Comments: of viable female in FRANCO position Placenta delievered spontaneous and intact with 3v cord Fundus firm LABOR SUMMARY EDC: 11/04/2016 00:00 No. Babies in Womb: 1 Attempted: No Labor Anesthesia: None LABOR INFORMATION Reason for Induction: Not Applicable Oxytocin: N/A Group B Beta Strep: Unknown Antibiotics # of Doses: 1 Antibiotics Time of Last Dose: 0454 Name of Antibiotic Given: PCN Steroids Given: None Reason Steroids Not Administered: Not Applicable MEMBRANES Membranes Rupture Method: Artificial Rupture of Membranes: 11/04/2016 05:06 Length of Rupture (hr): 0.07 Amniotic Fluid Color: Moderate Meconium Amniotic Fluid Amount: Small Amniotic Fluid Odor: Normal STAGES OF LABOR Stage 3 hr: 0 Stage 3 min: 3 VAGINAL DELIVERY Episiotomy: None Laceration Extension: N/A Other Laceration: Clitoral Laceration Repair: Yes Laceration Repair Note: repaired with 3-0 chromic in usual fashion with good hemostasis Sponge Count Correct: N/A Sharps Count Correct: Yes CSECTION DELIVERY Primary Indication: N/A Secondary Indication: N/A CSection Incidence: N/A Labor: N/A Elective: N/A CSection Incision: N/A BABY A INFORMATION Infant Delivery Date/Time: 11/04/2016 05:10 Method of Delivery: Vaginal Born in Route : No : N/A Forceps: N/A Vacuum Extraction: N/A Shoulder Dystocia : No PRESENTATION/POSITION BABY A Presentation: Cephalic Cephalic Presentation: Vertex Vertex Position: Left Occipital Anterior Breech Presentation: N/A PLACENTA INFORMATION BABY A Placenta Delivery Time : 11/04/2016 05:13 Placenta Method of Delivery: Spontaneous Placenta Status: Delivered SCORES BABY A Heart Rate 1 min: >100 bpm Resp Effort 1 min: Good Cry Reflex Irritability 1 min: Cough or Sneeze or Pulls Away Muscle Tone 1 min: Active Motion Color 1 min: Body [place], Extremities Blue Resuscitation Effort 1 min: Tactile Stimulation SCORE 1 MIN: 9 Heart Rate 5 min: >100 bpm Resp Effort 5 min: Good Cry Reflex Irritability 5 min: Cough or Sneeze or Pulls Away Muscle Tone 5 min: Active Motion Color 5 min: Body [place], Extremities Blue Resuscitation Effort 5 min: Tactile Stimulation SCORE 5 MIN: 9 INFORMATION BABY A Gestational Age at Delivery: 40.0 Gestational Status: Full Term- 39- 40.6 Weeks Outcome : Liveborn Condition : Stable Infant Sex: Female IDENTIFICATION BABY A Verification Date/Time: 11/04/2016 05:17 ID Band Number: [id number] Mother's Name Verified: Yes Infant RN Verifying Infant: SZoey Watson, RN _ C. Fore, RN WEIGHT/LENGTH BABY A Birthweight (gm): 2910 Weight (lb): 6 Weight (oz): 7 Length (in): 19.50 Length (cm): 49.53 CORD INFORMATION BABY A No. Cord Vessels: 3 Nuchal Cord : N/A Cord Blood Taken: Yes-For Eval (Mom's Blood Type - or O+) Infant Suction: Mouth; Nose ASSESSMENT BABY A Complications: None Physical Findings at Delivery: Within Normal Limits Respirations: Appears Normal Skin to Skin: Yes Skin to Skin Time (min): Baby back skin to skin and feeding baby formula. Personnel Adviser/ALS Called : No Infant Care By: Jerri Cantor RN Transferred To: Remains with Mother BABY B INFORMATION : N/A SIGNATURES Signature: with User ID: [email or web address]
[2016-11-04] MEDS ORDERED: PENICILLIN G POTASSIUM 2,500,000 UNIT in DEXTROSE 5%-WATER 50 ML IV SCH (08:47)
[2016-11-04] MEDS ORDERED: PENICILLIN G-K 5 MILLION UNIT VIAL IV SCH (09:00)
--- NOTE | 2016-11-04 09:25 | Admission Physical ---
Datetime Report Generated by CPN: 11/04/2016 09:25 CURRENT ADMISSION Chief Complaint: Uterine Contractions Indication for Induction: Not Applicable Admit Plan: Admit to Unit; Initiate Labor Protocol ALLERGIES Medication Allergies: No Medication Allergies: shrimp (11/04/2016) Latex: No Latex Allergies Food Allergies: shellfish Environmental Allergies: no OBSTETRICAL HISTORY EDC: 11/04/2016 00:00 : 5 Para: 3 Term: 2 : 1 SAB: 1 IAB: 0 Ectopic: 0 Livin Cesareans: 0 VBACs: 0 Multiple Births: 0 Gestational Diabetes: No Rh Sensitization: No Incompetent Cervix: Yes BONI: No Infertility: No ART Treatment: No Uterine Anomaly: No IUGR: No Hx Previous C/S: No Macrosomia: No Hx Loss/Stillborn: No PIH: Yes Hx : No Placenta Previa/Abruption: No Depression/PP Depression: Yes PTL/PROM: No Post Hemorrhage: No Current Procedures: Ultrasound; NST Obstetrical History Comments: G1 SAB G2 01/15/2013, NVD, girl 6lb 5oz 37.2 weeks G3 04/08/2014, NVD, girl 6lbs 2oz 38.2 weeks G4 10/2015, NVD, girl 5lbs 35-36 weeks SEE RECORDS Alcohol: No Marijuana : No Cocaine: No Other Illicit Drugs: No Cigarettes: Never Smoker. [id number] MEDICAL HISTORY Diabetes: No Blood Transfusion: No Pulmonary Disease (Asthma, TB): Yes Breast Disease: No Hypertension: No Graphic Coordinator Surgery: No Heart Disease: No Hosp/Surgery: No Autoimmune Disorder: No Anesthetic Complications: No Kidney Disease: No Abnormal Pap Smear: No Neuro/Epilepsy: No Psychiatric Disorders: No Other Medical Diseases: No Hepatitis/Liver Disease: No Significant Family History: No Varicosities/Phlebitis: Yes Trauma/Violence : No Thyroid Dysfunction: No INFECTIOUS HISTORY Gonorrhea: No Genital Herpes: No Chlamydia: No Tuberculosis: No Syphilis: No Hepatitis: No HIV/AIDS Exposure: No Rash or Viral Illness: No HPV: No PHYSICAL EXAM General: Normal HEENT: Normal Neurologic: Normal Thyroid: Deferred Heart: Normal Lungs: Normal Breast: Deferred Back: Normal Abdomen: Normal Genitourinary Exam: Normal Extremities: Normal DTRs: Normal Pelvic Type: Adequate Vital Signs: Reviewed; Within Normal Limits VAGINAL EXAM Dilatation: 10 Effacement: 100 Station: 1 MEMBRANES Membranes: Intact FETUS A EGA: 40.0 Monitoring: External US FHR- Baseline: 130 Variability: Moderate 6-25bpm Accelerations: 15X15 Decelerations: None Admit Comment: PCN for unknown GBS status PLANS FOR LABOR AND DELIVERY Labor and Delivery: None Pain Management: None Feeding Preference: Formula Benefit of Breast Feed Discussed: Yes Circumcision: N/A INFORMED CONSENT Signature: with User ID: [email or web address]
[2016-11-04] MEDS: FERROUS SULFATE 325 MG TABLET PO SCH ×2 (10:10→17:50)
[2016-11-04] MEDS: SENNOSIDES/DOCUSATE 8.6-50 MG 1 EACH TABLET PO SCH (10:10)
[2016-11-04] MEDS: DOCUSATE SODIUM 100 MG CAPSULE PO SCH ×2 (10:10→17:49)
[2016-11-04] MEDS: PRENATAL VITAMIN W-O CA NO5/FE FUMARATE/FA CAPSULE PO SCH (10:10)
--- NOTE | 2016-11-04 12:15 | XCELERA REPORT ---
[address] [address] Lower Extremity Venous Evaluation Name: DARLIN GRIFFIN Age: 25 yrs Gender: Female : 1990 Patient Status: Inpatient Patient Location: 2S\S\222\S\A Study Date: 11/04/2016 09:06 AM Procedure: Color flow and duplex imaging of the veins of the right lower extremity as well as the left Common Femoral vein. Reason For Study: pain r thigh, h/o dvt please scan right lower extr Ordering Physician: JULIA DAVIS Performed By: Brooklyn Delaney Right Sided Venous Evaluation Normal vessel filling wall to wall, compression and augmentation as well as Colour flow down to the infrageniculate veins. Left Sided Venous Evaluation The left common femoral vein is fully compressible. Spontaneous and phasic flow is present in the left common femoral vein. Critical Findings Called in to Dr Davis at about 1000. Interpretation Summary No duplex evidence of DVT or obstruction in the right lower extremity nor in the left Common Femoral vein. : JULIA DAVIS > Dirk Oro
[2016-11-04] MEDS ORDERED: ONDANSETRON HCL INJ/PF 4 MG/2 ML SDV ONE (13:04)
[2016-11-04] MEDS: IBUPROFEN 800 MG TABLET PO SCH ×2 (13:07→21:48)
[2016-11-04] MEDS ORDERED: ENOXAPARIN SODIUM INJ 40 MG/0.4 ML DISP.SYRIN SUBCUT ONE (15:30)
[2016-11-04] MEDS: ACETAMINOPHEN WITH CODEINE #3 TABLET PO PRN (15:45)
--- NOTE | 2016-11-04 19:00 | L&D Flow Sheet ---
LD Flowsheet Datetime Report Generated by CPN: 11/04/2016 19:00 Datetime: 11/04/2016 07:32 NBP Sys/Rachel/Mean (mmHg): 122 (QS system process) : 79 (QS system process) : 96 (QS system process) Pulse: 78 (QS system process) Pain Assessment Comments: Pt c/o shooting pain down Rt thigh. Rivet Maker assessed leg, no redness, bruising, or heat noted. Asked pt to report any worsening pain. (Crystal Maldonado RN) Datetime: 11/04/2016 07:17 Pain Scale: 5 (Crystal Maldonado RN) Pain Presence: Intermittent (Crystal Maldonado RN) Pain Type: Cramping (Crystal Maldonado RN) Pain Location: Abdomen (Crystal Maldonado RN) Pain Goal: 0 (Crystal Maldonado RN) Pain Relief Measures: Pain Medication Given; Comfort Measures (Crystal Maldonado RN) Datetime: 11/04/2016 07:11 NBP Sys/Rachel/Mean (mmHg): 120 (QS system process) : 78 (QS system process) : 94 (QS system process) Pulse: 70 (QS system process)
[2016-11-05] MEDS: IBUPROFEN 800 MG TABLET PO SCH ×3 (05:43→21:56)
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
--- NOTE | 2016-11-05 06:01 | L&D General Admission ---
General Admit Datetime Report Generated by CPN: 11/05/2016 06:00 INFORMATION Patient Age: 25 (12/18/2013 11:58:QS system process) EDC: 11/04/2016 00:00 (09/26/2016 15:03:ALYCIA Chambers) : 5 (09/26/2016 15:03:ALYCIA Chambers) Para: 3 (10/09/2016 21:23:Candis Nagy RN) Term: 2 (09/26/2016 15:03:ALYCIA Chambers) : 1 (09/26/2016 15:03:ALYCIA Chambers) Spontaneous Abortions: 1 (09/26/2016 15:03:ALYCIA Chambers) Induced Abortions: 0 (09/26/2016 15:03:ALYCIA Chambers) Livin (09/26/2016 15:03:ALYCIA Chambers) Cesareans: 0 (09/26/2016 15:03:Nida Bellavance, RNC) VBACs: 0 (09/26/2016 15:03:Nida Bellavance, RNC) Ectopic: 0 (09/26/2016 15:03:Nida Bellavance, RNC) Multiple Births: 0 (09/26/2016 15:03:Nida Bellavance, RNC) Baby, Number in Womb: 1 (10/09/2016 21:23:Candis Nagy RN) CARE Primary [employer] 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: [facility] (09/26/2016 15:03:Nida Bellavance, RNC) Month of 1st Visit: may (09/26/2016 15:03:Nida Yamilethnce, RNC) Adequate Care: No (09/26/2016 15:03:Nida Bellavance, RNC) Height (in): 64 (11/04/2016 09:24:QS system process) ALLERGIES Medication Allergy: No (09/26/2016 15:03:Nida Yamilethnce, RNC) Medication Allergies: shrimp (11/04/2016) (11/04/2016 05:08:QS system process) Latex Allergy: No Latex Allergies (09/26/2016 15:03:Nida Bellavance, RNC) Food Allergies: shellfish (09/26/2016 15:03:Nida Bellavance, RNC) Environmental Allergies: no (09/26/2016 15:03:Nida Bellavance, RNC) COMMUNICATION Primary Language: Romanian (09/26/2016 15:03:Nida Bellavance, RNC) Medical Tx Preferred Language: Romanian (09/26/2016 15:03:Nida Bellavance, RNC) Romanian Communication Ability: Understands verbal communication (09/26/2016 15:03:Nida Bellavance, RNC) Communication Barrier(s): None (09/26/2016 15:03:Nida Bellavance, RNC) DEMOGRAPHICS Address: [address] [place] [id number] (09/26/2016 14:49:QS system process) Zipcode: [address] (12/18/2015 11:58:QS system process) Home (10/09/2016 19:55:QS system process) Work (11/04/2016 04:37:QS system process) SSN: [id number] (12/18/2015 11:58:QS system process) Next of Kin Name: YUNIER MASON (12/18/2015 11:58:QS system process) Next of Kin (12/18/2015 11:58:QS system process) Next of Kin Relationship: MO (12/18/2015 11:58:QS system process) Date of : 1990 (12/18/2015 11:58:QS system process) Marital Status: Single (12/18/2015 11:58:QS system process) Sex: Female (12/18/2015 11:58:QS system process) Race: (12/18/2015 11:58:QS system process) Ethnicity: Non- or (12/18/2015 11:58:QS system process) Amish: None (12/18/2015 11:58:QS system process) DRUG AND ALCOHOL USE Alcohol: No (09/26/2016 15:03:Candis Nagy RN) Cigarettes: Never Smoker. 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: [facility] (09/26/2016 15:03:Candis Nagy RN) Feeding Preference: Formula (09/26/2016 15:03:Lilli Menezes RN) Benefit of Breast Feed Discussed: Yes (09/26/2016 15:03:Candis Nagy RN) Circumcision: N/A (09/26/2016 15:03:Candis Nagy RN) Classes Attended: No (09/26/2016 15:03:Candis Nagy RN) Tubal Ligation: No (09/26/2016 15:03:Candis Nagy RN) Tubal Authorization Signed: N/A (09/26/2016 15:03:Candis Nagy RN) Consent: N/A (09/26/2016 15:03:Candis Nagy RN) Consent Signed: N/A (09/26/2016 15:03:Candis Nagy RN) Pain Management Plans: None (09/26/2016 15:03:Candis Nagy RN) Plans for Labor and Delivery: None (09/26/2016 15:03:Candis Nagy RN) Support Person: Yunier Mason (09/26/2016 15:03:Candis Nagy RN) Support Person Relationship: Mother (09/26/2016 15:03:Candis Nagy RN) Cultural/Spritual Practice: No (09/26/2016 15:03:Candis Nagy RN) Spir/Cult Dietary Needs: No (09/26/2016 15:03:Candis Nagy RN) LIVING SITUATION/DISCHARGE PLAN Living Arrangements: Apartment (09/26/2016 15:03:Candis Nagy RN) Adequate Access to:: Electric; Heat; Refrigeration; Plumbing/Running water; Phone; Transportation (09/26/2016 15:03:Candis Nagy RN) WIC Program: Yes (09/26/2016 15:03:Candis Nagy RN) Discharge Medical Review Coordinator Person: Yunier Mason (09/26/2016 15:03:Candis Nagy RN) Person to Help after Discharge: Yunier Mason (09/26/2016 15:03:Candis Nagy RN) Currently Using Commun Resources: Yes (09/26/2016 15:03:Candis Nagy RN) Outside Agency/Bottom Ironer: Yes (09/26/2016 15:03:Candis Nagy RN) Car Seat for Discharge: Yes (09/26/2016 15:03:Candis Nagy RN) Adoption Requested: No (09/26/2016 15:03:Candis Nagy RN) Pt Contact w/infant Post : N/A (09/26/2016 15:03:Candis Nagy RN) LABS Blood Type: O Positive (09/26/2016 15:03:Candis Nagy RN) Antibody Screen: Negative (09/26/2016 15:03:Siri Watson RN) Rho(G) this : Not Applicable (09/26/2016 15:03:Siri Watson RN) Hemoglobin: 9.2 L (11/04/2016 04:58:QS system process) Hematocrit: 29.4 L (11/04/2016 04:58:QS system process) MCV: 72 L (11/04/2016 04:58:QS system process) Group Beta Strep: Unknown (09/26/2016 15:03:Siri Watson RN) RPR/VDRL: Nonreactive (09/26/2016 15:03:Siri Watson RN) HIV Results: Negative (10/09/2016 20:52:Siri Watson RN) Hepatitis B: Negative (09/26/2016 15:03:Siri Watson RN) Rubella: Immune (09/26/2016 15:03:Candis Nagy RN) Varicella: Non Susceptible (09/26/2016 15:03:Siri Watson RN) OB/PREVIOUS HISTORY 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; 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; 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 (09/26/2016 15:03:Candis Nagy RN) Current Procedures: Ultrasound; NST (09/26/2016 15:03:Candis Nagy RN) History of Previous : No (09/26/2016 15:03:Candis Nagy RN) History of Gestational Diabetes: No (09/26/2016 15:03:Candis Nagy RN) History of PIH: Yes (09/26/2016 15:03:Candis Nagy RN) History of Incompetent Cervix: Yes (09/26/2016 15:03:Candis Nagy RN) History of Placenta Previa/Abrup: No (09/26/2016 15:03:Candis Nagy RN) History of Macrosomia: No (09/26/2016 15:03:Candis Nagy RN) History of IUGR: No (09/26/2016 15:03:Candis Nagy RN) History of Hemorrhage: No (09/26/2016 15:03:Candis Nagy RN) History of Loss/Stillborn: No (09/26/2016 15:03:Candis Nagy RN) History of : No (09/26/2016 15:03:Candis Nagy RN) History of D (Rh) Sensitization: No (09/26/2016 15:03:Candis Nagy RN) History Recurrent Loss/Stillborn: No (09/26/2016 15:03:Candis Nagy RN) History Depression/PP Depression: Yes (09/26/2016 15:03:Candis Nagy RN) History of Uterine Anomaly/BONI: No (09/26/2016 15:03:Candis Nagy RN) History of Infertility: No (09/26/2016 15:03:Candis Nagy RN) History of ART Treatment: No (09/26/2016 15:03:Candis Nagy RN) History of BONI: No (09/26/2016 15:03:Candis Nagy RN) Comments Obstetrical History: G1 SAB G2 01/15/2013, NVD, girl 6lb 5oz 37.2 weeks G3 04/08/2014, NVD, girl 6lbs 2oz 38.2 weeks G4 10/2015, NVD, girl 5lbs 35-36 weeks (09/26/2016 15:03:Candis Nagy RN) MEDICAL HISTORY Med Hx Diabetes: No (09/26/2016 15:03:Candis Nagy RN) Med Hx Hypertension: No (09/26/2016 15:03:Candis Nagy RN) Med Hx Heart Disease: No (09/26/2016 15:03:Candis Nagy RN) Med Hx Autoimmune Disorder: No (09/26/2016 15:03:Candis Nagy RN) Med Hx Kidney Disease/UTI: No (09/26/2016 15:03:Candis Nagy RN) Med Hx Neurologic/Epilepsy: No (09/26/2016 15:03:Candis Nagy RN) Med Hx Psychiatric Disorders: No (09/26/2016 15:03:Candis Ngay RN) Med Hx Hepatitis/Liver Disease: No (09/26/2016 15:03:Candis Nagy RN) Med Hx Varicosities/Phlebitis: Yes (09/26/2016 15:03:Candis Nagy RN) Med Hx Thyroid Dysfunction: No (09/26/2016 15:03:Candis Nagy RN) Med Hx Trauma/Violence: No (09/26/2016 15:03:Candis Nagy RN) Med Hx Blood Transfusion: No (09/26/2016 15:03:Candis Nagy RN) Med Hx Pulmonary (Asthma,TB): Yes (09/26/2016 15:03:Candis Nagy RN) Med Hx Breast: No (09/26/2016 15:03:Candis Nagy RN) Med Hx MEDICAL RECORD CONSULTANT Surgery: No (09/26/2016 15:03:Candis Nagy RN) Med Hx Hospitalization/Surgery: No (09/26/2016 15:03:Candis Nagy RN) Med Hx Anesthetic Complications: No (09/26/2016 15:03:Candis Nagy RN) Med Hx Abnormal Pap Smear: No (09/26/2016 15:03:Candis Nagy RN) Other Medical Diseases: No (09/26/2016 15:03:Candis Nagy RN) Med Hx Significant Family Hx: No (09/26/2016 15:03:Candis Nagy RN) INFECTIOUS HISTORY Inf Hx Gonorrhea: No (09/26/2016 15:03:Candis Nagy RN) Inf Hx Chlamydia: No (09/26/2016 15:03:Candis Nagy RN) Inf Hx Syphilis: No (09/26/2016 15:03:Candis Nagy RN) Inf Hx HIV/AIDS: No (09/26/2016 15:03:Candis Nagy RN) Inf Hx Human Papilloma Virus: No (09/26/2016 15:03:Candis Nagy RN) Inf Hx Pt/Partner Genital Herpes: No (09/26/2016 15:03:Candis Nagy RN) Inf Hx Tuberculosis/Exposure: No (09/26/2016 15:03:Candis Nagy RN) Inf Hx Hepatitis B,C: No (09/26/2016 15:03:Candis Nagy RN) Inf Hx Rash or Viral Illness: No (09/26/2016 15:03:Candis Nagy RN) GENETIC HISTORY Gen Hx Age >=35 at [place]: No (09/26/2016 15:03:Candis Nagy RN) Gen Hx Thalassemia: No (09/26/2016 15:03:Candis Nagy RN) Gen Hx Congenital Heart Defect: No (09/26/2016 15:03:Candis Nagy RN) Gen Hx Neural Tube Defect: No (09/26/2016 15:03:Canids Nagy RN) Gen Hx Down's Syndrome: No (09/26/2016 15:03:Candis Nagy RN) Gen Hx Scott-Sachs: No (09/26/2016 15:03:Canids Nagy RN) Gen Hx Casey: No (09/26/2016 15:03:Candis Nagy RN) Gen Hx Familial Dysautonomia: No (09/26/2016 15:03:Candis Nagy RN) Gen Hx Sickle Cell Disease/Trait: No (09/26/2016 15:03:Candis Nagy RN) Gen Hx Hemophilia/Blood Disorder: No (09/26/2016 15:03:Candis Nagy RN) Gen Hx Muscular Dystrophy: No (09/26/2016 15:03:Candis Nagy RN) Gen Hx Cystic Fibrosis: No (09/26/2016 15:03:Candis Nagy RN) Gen Hx Huntingtons Chorea: No (09/26/2016 15:03:Candis Nagy RN) Gen Hx Mental Retardation/Autism: No (09/26/2016 15:03:Candis Nagy RN) Gen Hx Tested for Fragile X: No (09/26/2016 15:03:Candis Nagy RN) Gen Hx Other Inher/Chromosomal: No (09/26/2016 15:03:Candis Nagy RN) Gen Hx Maternal Metabolic DO: No (09/26/2016 15:03:Candis Nagy RN) Gen Hx Pt Father or FOB Defect: No (09/26/2016 15:03:Candis Ngay RN) Gen Hx Other Genetic History: No (09/26/2016 15:03:Candis Nagy RN) Gen Hx Drugs/Meds since LMP: No (09/26/2016 15:03:Candis Nagy RN)
--- NOTE | 2016-11-05 06:16 | L&D Care Plan ---
LD CARE PLANS Datetime Report Generated by CPN: 11/05/2016 06:15 Datetime: 11/04/2016 04:58 Pain State: Actual (Siri Watson RN) Related To: Labor and Delivery Process; Treatment and Procedures; Post (Siri Watson RN) Goal(s): Patients Pain will be Assessed and Managed; Patient will Verbalize Adequate Relief of Pain or the Ability to Adrian with Current Pain (Siri Watson RN) Interventions: Assess Pain Severity on Scale of 0 (None) to 5 (Severe); Assess Type, Location and Intensity of Pain Each Time Client Reports Discomfort and Notify Provider if Unusal Pain Develops; Encourage Proper Breathing and Relaxation Techniques; Offer Alternatives Such as Repositioning, Calm Environment, Massages, Diversional Activities, Ice Pack, Splinting, and Ambulation; Administer Analgesics as Ordered; Assist with Epidural Placement as Appropriate; Evaluate Therapeutic Effectiveness of Medication and Treatments (Siri Watson RN) Outcome: Patient will Report Absence or Relief of Pain Consistent with Established Pain Goal (Siri Watson RN) Status: Ongoing (Siri Watson RN) Outcome: Patient will have a Decrease in Signs and Symptoms of Discomfort (Siri Watson RN) Status: Ongoing (Siri Watson RN) Outcome: Pain will be Controlled During Procedures (Siri Watson RN) Status: Ongoing (Siri Watson RN) Anxiety State: Actual (Siri Watson RN) Related To: Labor and Delivery Process; Perceived or Actual Threat to ; Situational Crisis; Significant Life Event (Siri Watson RN) Goal(s): Patient will have Decreased Anxiety and be able to Function at Acceptable Levels (Siri Watson RN) Interventions: Assess Verbal and Nonverbal Behavioral Indicators of Anxiety; Assist Patient to Identify and Verbalize Symptoms of Anxiety; Identify and Demonstrate Techniques to Control Anxiety; Assist Patient with Coping Mechanisms to Manage Anxiety; Provide Theraputic Touch for the Patient; Explain to Patient, Using a Calm Reassuring Approach and Nonmedical Terms, All Activities, Procedures, and Concerns; Instruct Patient and Family about Post Discharge Care, Limitations, Symptoms to Report and Resources Available (Siri Watson RN) Outcome: Patient will Identify, Verbalize and Demonstrate Techniques to Control Anxiety (Siri Watson RN) Status: Ongoing (Siri Watson RN) Outcome: Patient's Posture, Facial Expressions, Gestures and Activity Level will Reflect Decreased Anxiety (Siri Watson RN) Status: Ongoing (Siri Watson RN) Outcome: Patient will Verbalize a Sense of Control and/or Acceptance of the Situation (Siri Watson RN) Status: Ongoing (Siri Watson RN) Outcome: Patient will Identify and Utilize Support Person (Siri Watson RN) Status: Ongoing (Siri Watson RN) Knowledge Deficit State: Risk For (Siri Watson RN) Related To: Labor and Delivery Process; Impending Alterations in Family Dynamics (Siri Watson RN) Goal(s): Patient will Accurately Verbalize Understanding of Plan of Care and Treatment; Patient and Family will Accurately Verbalize Understanding of the Disease Process (Siri Watson RN) Interventions: Assess Motivation and Willingness of Patient/Family to Learn; Assess Preferred Learning Mode: One to One Instruction, Reading, Videos, Group Discussion or Demonstration; Assess Barriers to Learning: Pain, Emotional State, Language Barrier, Cognitive Impairment, Visual or Hearing Deficits; Assess Patient and Family Knowledge of Disease Process, Medications and Treatment; Discuss Therapy and/or Treatment Options, Describe Rationale Behind Management, Therapy and Treatment Recommendations; Instruct Patient and Family on Signs and Symptoms to Report; Instruct Patient and Family on Medication Effects and Side Effects; Provide Appropriate and Timely Education Using Multiple Techniques; Provide Patient and Family with Support Group Information and Resources; Give Clear and Thorough Explanations and Demonstrations (Siri Watson RN) Outcome: Patient and Family will Verbalize Understanding of Condition, Treatment and Signs and Symptoms to Report (Siri Watson RN) Status: Ongoing (Siri Watson RN) Outcome: Patient will Identify Perceived Learning Needs and Express Motivation to Learn (Siri Watson RN) Status: Ongoing (Siri Watson RN) Outcome: Patient will Verbalize Understanding of Desired Content, and/or Performs Desired Skill Prior to Discharge (Siri Watson RN) Status: Ongoing (Siri Watson RN) Infection State: Risk For (Siri Watson RN) Related To: Invasive Procedures; Altered Tissue Integrity (Siri Watson RN) Goal(s): The Patient will be Free of Infection, Vital Signs Stable and Lab Work within Normal Parameters (Siri Watson RN) Interventions: Instruct and Reinforce Proper Handwashing, Hygiene, and Care Techniques to Patient and Family; Monitor Vital Signs; Monitor Patient for the Following Signs of Infection: Fever, Abdominal Tenderness, Unusual Discharge; Monitor Aminiotic Fluid, Urine and Lochia for Color and Odor; Observe Wounds, Incisions and Invasive Line Sites for Redness, Drainage and Edema; Assess IV Sites per Hospital Policy; Monitor Lab and Test Results and Notify Provider of Abnormal Findings; Assess Nutritional Status and Promote Good Nutrition (Siri Watson RN) Outcome: Patient will Remain Free of Infection (Siri Watson RN) Status: Ongoing (Siri Watson RN) Outcome: Infection will be Recognized Early to Allow for Prompt Treatment (Siri Watson RN) Status: Ongoing (Siri Watson RN) Outcome: Patient will have Vital Signs Within Expected Range (Siri Watson RN) Status: Ongoing (Siri Watson RN) Injury State: Risk For (Siri Watson RN) Related To: Labor and Delivery Process (Siri Watson RN) Goal(s): Patient will Remain Free from Injury (Siri Watson RN) Interventions: Monitoring as per Hospital Protocol; Assess Neurological Status; Perform Risk Assessment of Patients with Induction and ; Perform Fall Risk Assessment and Prevention per Hospital Protocol; Perform DVT Risk Assessment and Prophylaxis per Hospital Protocol; Ensure that Oxygen, Suction, and Resuscitation Medications and Equipment are Readily Available; Confirm Patient ID Prior to Procedure(s) and Medication Administration per Hospital Policy (Siri Watson RN) Outcome: Successful Fall Risk Prevention (Siri Watson RN) Status: Ongoing (Siri Watson RN) Outcome: Patient will Deliver Infant without Adverse Sequela (Siri Watson RN) Status: Ongoing (Siri Watson RN) Outcome: Patient's Neurological Status will Remain Stable (Siri Watson RN) Status: Ongoing (Siri Watson RN) Impaired Skin Integrity State: Risk For (Siri Watson RN) Related To: Vaginal Delivery (Siri Watson RN) Goal(s): Patient will Maintain Optimal Skin Integrity, Free of Breakdown, Injury or Infection (Siri Watson RN) Interventions: Complete Screening for Pressure Ulcer Risk and Initiate Protocol per Hospital Policy; Monitor Site of Skin Impairment for Color Changes, Redness, Swelling, Warmth, Pain or Other Signs of Infection; Encourage and Assist with Position Changes; Monitor Patient's Mobility Status; Provide Adequate Nutrition and Fluids; Teach Patient Appropriate Hygienic Care; Teach Patient/Family Skin Care Management (Siri Watson RN) Outcome: Patient will not have Evidence of Injury Such as Skin Breakdown, Scrapes, Cuts, or Bruising (Siri Watson RN) Status: Ongoing (Siri Watson RN) Outcome: Patient will Report Any Altered Sensation or Pain at Site of Skin Impairment (Siri Watson RN) Status: Ongoing (Siri Watson RN) Outcome: Patients Incisions and Wounds will be without Signs or Symptoms of Infection (Siri Watson RN) Status: Ongoing (Siri Watson RN) Outcome: Patient will Demonstrate Understanding of Plan to Heal Skin and Prevent Reinjury and Verbalize Risk Factors (Siri Watson RN) Status: Ongoing (Siri Watson RN)
[2016-11-05 07:09] LABS: HEMATOCRIT 28.4 % (36.0-47.0); HGB HCT DIFFERENCE -1.4; MEAN CORPUSCULAR HEMOGLOBIN 23.1 pg (27.0-33.4); MEAN CORPUSCULAR HGB CONC 31.9 g/dL (32.0-36.0); MEAN CORPUSCULAR VOLUME 72 fl (80-97); RED BLOOD COUNT 3.92 10^6/uL (3.72-5.28); WHITE BLOOD COUNT 7.7 10^3/uL (4.0-10.5)
[2016-11-05] MEDS: PRENATAL VITAMIN W-O CA NO5/FE FUMARATE/FA CAPSULE PO SCH (09:26)
[2016-11-05] MEDS: SENNOSIDES/DOCUSATE 8.6-50 MG 1 EACH TABLET PO SCH (09:26)
[2016-11-05] MEDS: FERROUS SULFATE 325 MG TABLET PO SCH ×2 (09:26→17:14)
[2016-11-05] MEDS: DOCUSATE SODIUM 100 MG CAPSULE PO SCH ×2 (09:26→17:14)
[2016-11-05 09:27] LABS: CREATININE RESULT 0.84 mg/dL (0.52-1.25)
[2016-11-05] MEDS: ENOXAPARIN SODIUM INJ 40 MG/0.4 ML DISP.SYRIN SUBCUT SCH (09:43)
--- NOTE | 2016-11-05 10:09 | PDOC PROGRESS REPORT ---
Subjective-OB Subjective: Post Delivery Day:1 25 year old. Denies any needs at this time, voiding without difficulty, pain well controlled, lochia is stable. Physical Exam (OB) Vital Signs: Temp Pulse Resp BP Pulse Ox 98.2 F 114 H 18 139/87 H 100 11/05/16 09:03 11/05/16 09:03 11/05/16 09:03 11/05/16 09:03 11/05/16 09:03 Intake & Output 11/04/16 11/05/16 11/06/16 06:59 06:59 06:59 Weight 88.25 kg - Lochia Lochia Amount: Small 10-25 ml Lochia Color: Rubra/Red - Abdomen Description: Soft, Round Hernia Present: No Fundal Description: Firm Fundal Height: u/u - u/2 Objective-Diagnostic Laboratory: 11/05/16 05:44 11/05/16 05:44 11/05/16 11/05/16 05:44 05:44 WBC 7.7 RBC 3.92 Hgb 9.0 L Hct 28.4 L MCV 72 L MCH 23.1 L MCHC 31.9 L RDW 17.0 H Plt Count 213 Creatinine 0.84 Est GFR ( Amer) > 60 Est GFR (Non-Af Amer) > 60 Assessment and Plan(PN) - Assessment and Plan (1) DVT complicating Is this a current diagnosis for this admission?: YesPlan: lovenonx monitor for s/x dvt (2) Delivery normal Is this a current diagnosis for this admission?: YesPlan: routine pp care anticipate d/c home tomorrow - Time Spent with Patient Time with patient: Less than 15 minutes Critical Time spent with patient: Less than 15 minutes Medications reviewed and adjusted accordingly: Yes - Disposition Anticipated Discharge: Home Within: within 48 hours
[2016-11-06] MEDS: ACETAMINOPHEN WITH CODEINE #3 TABLET PO PRN (03:26)
[2016-11-06] MEDS: IBUPROFEN 800 MG TABLET PO SCH (05:56)
[2016-11-06 08:14] VITALS: BP 139/87
[2016-11-06] MEDS: ENOXAPARIN SODIUM INJ 40 MG/0.4 ML DISP.SYRIN SUBCUT SCH (08:22)
--- NOTE | 2016-11-06 08:59 | PDOC DISCHARGE SUMMARY ---
Final Diagnosis Discharge Date: 11/06/16 - Final Diagnosis (1) DVT complicating Is this a current diagnosis for this admission?: Yes (2) Delivery normal Is this a current diagnosis for this admission?: Yes Discharge Data - Discharge Medication Home Medications: Pnv with Ca,No.72/Iron,Carb/FA [ Plus Iron Tablet] 1 each PO [id number] Docusate Sodium [Colace 100 mg Capsule] 100 mg PO BID #60 capsule 11/06/16 Enoxaparin Sodium [Lovenox Inj 40 mg/0.4 ml Disp.syrin] 40 mg SUBCUT QAM #30 disp.syrin 11/06/16 Ferrous Sulfate [Feosol 325 mg Tablet] 325 mg PO BID #60 tablet 11/06/16 Ibuprofen [Motrin 800 mg Tablet] 800 mg PO Q8 #60 tablet 11/06/16 Gestational Age: 40.0 Reason(s) for Admission: Onset of Labor Admission Note: unknown, gbs Procedures: NST Intrapartum Procedure(s): Spontaneous Vaginal Delivery Complication(s): Laceration-Perineal Laceration-Degree: 1st - [place] Data Baby 1 Female at 1 minute: 9 at 5 minutes: 9 Weight: 2910 kg Home with Mother: Yes Complications: No - Diagnosis Test Laboratory: Temp Pulse Resp BP Pulse Ox 97.7 F 75 16 139/87 H 100 11/06/16 08:12 11/06/16 08:12 11/06/16 08:12 11/06/16 08:12 11/06/16 08:12 11/04/16 11/04/16 11/05/16 04:40 04:58 05:44 RBC 4.10 3.92 Hgb 9.2 L 9.0 L Hct 29.4 L 28.4 L Urine Opiates Screen NEGATIVE - Discharge information/Instructions Discharge Activity: Activity As Tolerated, No Lifting Over 10 Pounds, Pelvic Rest, No tub bath Discharge Diet: Regular Disposition: HOME, SELF-CARE Follow up with: [facility] in: 1, Weeks - 1 w f/u d/t lovenox at home, recheck
[2016-11-06] MEDS: SENNOSIDES/DOCUSATE 8.6-50 MG 1 EACH TABLET PO SCH (09:11)
[2016-11-06] MEDS: PRENATAL VITAMIN W-O CA NO5/FE FUMARATE/FA CAPSULE PO SCH (09:11)
[2016-11-06] MEDS: DOCUSATE SODIUM 100 MG CAPSULE PO SCH (09:11)
[2016-11-06] MEDS: FERROUS SULFATE 325 MG TABLET PO SCH (09:11)
== END 2016-11-06 13:00 | disposition home or self-care (01) | DRG 775 ==
LOC: LC 04:33 → LR 04:48 → 2S 09:24
PROVIDERS: ADMIT Obstetrics & Gynecology; ATTEND Obstetrics & Gynecology
PROC: 10E0XZZ Delivery of Products of Conception, External Approach (ICD-10-PCS; principal; 2016-11-04)
PROC: 0UQJXZZ Repair Clitoris, External Approach (ICD-10-PCS; 2016-11-04)
PROC: 4A1HXCZ Monitoring of Products of Conception, Cardiac Rate, External Approach (ICD-10-PCS; 2016-11-04)
PROC: 3E0234Z Introduction of Serum, Toxoid and Vaccine into Muscle, Percutaneous Approach (ICD-10-PCS; 2016-11-06)
DX: O62.3 Precipitate labor (principal); O70.0 First degree perineal laceration during delivery; O87.4 Varicose veins of lower extremity in the puerperium; O77.0 Labor and delivery complicated by meconium in amniotic fluid; Z3A.40 40 weeks gestation of pregnancy; Z37.0 Single live birth; Z91.013 Allergy to seafood; Z23 Encounter for immunization
CPT/HCPCS: 36415; 80307; 81005; 82565; 85025; 85027; 86592; 86850; 86900; 86901; 88307; 90715; 93971; J1650; J2405; J2540; J2590; J3490

== ENCOUNTER 2016-11-13 14:48 | Observation (INO) | payer MEDICAID ==
--- NOTE | 2016-11-13 15:51 | ER Document Report ---
Addendum entered and electronically signed by RAFI ROYAL NP 11/13/16 15:59 : Course - Re-evaluation Re-evalutation: 11/13/16 15:58 pt is not . - Vital Signs Vital signs: Temp Pulse Resp BP Pulse Ox 97.8 F 104 H 16 150/109 H 98 11/13/16 15:34 11/13/16 15:34 11/13/16 15:34 11/13/16 15:49 11/13/16 15:34 Original Note: ED Medical Screen (RME) - General Stated Complaint: COUGH Time seen by provider: 15:48 Mode of Arrival: Ambulatory Information source: Patient Notes: 25-year-old female had a baby on 11/04/2016. She is coming here because she has a cough yellow mucus, Passing vaginal blood clots, bilateral hands are numb and swollen. No history of high blood pressure. She is taking Lovenox to prevent DVT which she had after her second baby. Manual blood pressure is 140/100. I spoke to Dr. Purvis in consultation who is the MULTIMEDIA EDITOR doctor up on the second floor she told me what labs to order and to give the patient lisinopril 20 mg by mouth and hydrochlorothiazide 25 mg by mouth now. I have greeted and performed a rapid initial assessment of this patient. A comprehensive ED assessment, evaluation of the patient, analysis of test results , and completion of the medical decision making process will be contacted by additional ED providers. TRAVEL OUTSIDE OF THE [place] IN LAST 30 DAYS: No - Related Data Allergies/Adverse Reactions: shrimp Allergy (Verified 11/04/16 05:08) shrimp Allergy (Uncoded 11/04/16 04:59) Past Medical History - Past Medical History Cardiac Medical History: Reports: Hx DVT Pulmonary Medical History: Reports: Hx Asthma, Hx Bronchitis Renal/ Medical History: Reports: Hx Kidney Stones. Denies: Hx Peritoneal Dialysis - Immunizations Hx Diphtheria, Pertussis, Tetanus Vaccination: Yes Physical Exam - Vital signs Vitals: Temp Pulse Resp BP Pulse Ox 97.8 F 104 H 16 141/98 H 98 11/13/16 15:34 11/13/16 15:34 11/13/16 15:34 11/13/16 15:34 11/13/16 15:34 Course - Vital Signs Vital signs: Temp Pulse Resp BP Pulse Ox 97.8 F 104 H 16 150/109 H 98 11/13/16 15:34 11/13/16 15:34 11/13/16 15:34 11/13/16 15:49 11/13/16 15:34
[2016-11-13 17:01] LABS: ABSOLUTE BASOPHILS # (AUTO) 0.1 10^3/uL (0.0-0.2); ABSOLUTE EOSINOPHILS # (AUTO) 0.5 10^3/uL (0.0-0.6); ABSOLUTE LYMPHOCYTES (AUTO) 3.3 10^3/uL (0.5-4.7); ABSOLUTE MONOCYTES (AUTO) 0.7 10^3/uL (0.1-1.4); ABSOLUTE NEUT (AUTO) 5.9 10^3/uL (1.7-8.2); BASOPHILS % (AUTO) 0.5 % (0-2); EOSINOPHILS % (AUTO) 4.8 % (0-6); HEMATOCRIT 36.2 % (36.0-47.0); HEMOGLOBIN 11.2 g/dL (12.0-15.5); HGB HCT DIFFERENCE -2.6; LYMPHOCYTES % (AUTO) 31.5 % (13-45); MEAN CORPUSCULAR HEMOGLOBIN 22.6 pg (27.0-33.4); MEAN CORPUSCULAR HGB CONC 30.9 g/dL (32.0-36.0); MEAN CORPUSCULAR VOLUME 73 fl (80-97); MONOCYTES % (AUTO) 6.8 % (3-13); RED BLOOD COUNT 4.95 10^6/uL (3.72-5.28); RED CELL DISTRIBUTION WIDTH 17.4 % (11.5-14.0); SEGMENTED NEUTROPHILS % (AUTO) 56.4 % (42-78); WHITE BLOOD COUNT 10.5 10^3/uL (4.0-10.5)
[2016-11-13 17:12] LABS: APPEARANCE,URINE HAZY; BILIRUBIN,URINE NEGATIVE (NEGATIVE); GLUCOSE, URINE NEGATIVE (NEGATIVE); KETONES,URINE NEGATIVE (NEGATIVE); LEUKOCYTE ESTERASE,URINE LARGE (NEGATIVE); NITRITE,URINE NEGATIVE (NEGATIVE); PROTEIN,URINE 30 mg/dL (NEGATIVE)
[2016-11-13 17:13] LABS: URINE SPECIFIC GRAVITY 1.017
[2016-11-13 17:20] LABS: ALANINE AMINOTRANSFERASE 66 U/L (9-52); ALBUMIN 4.3 g/dL (3.5-5.0); ALKALINE PHOSPHATASE 106 U/L (38-126); ANION GAP 13 (5-19); ASPARTATE AMINO TRANSFERASE 32 U/L (14-36); BILIRUBIN,TOTAL 0.7 mg/dL (0.2-1.3); BLOOD UREA NITROGEN 13 mg/dL (7-20); CALCIUM 9.8 mg/dL (8.4-10.2); CARBON DIOXIDE 27 mmol/L (22-30); CHLORIDE 102 mmol/L (98-107); CREATININE RESULT 1.04 mg/dL (0.52-1.25); GLUCOSE 74 mg/dL (75-110); LDH 992 U/L (313-618); POTASSIUM 4.2 mmol/L (3.6-5.0); SODIUM 141.6 mmol/L (137-145); TOTAL PROTEIN 7.8 g/dL (6.3-8.2); URIC ACID 7.6 mg/dL (2.5-6.2)
[2016-11-13 19:06] VITALS: BP 170/92
[2016-11-13] MEDS ORDERED: MAGNESIUM SULFATE 500 ML IV PRN (21:04)
[2016-11-13] MEDS ORDERED: MAGNESIUM SULFATE 100 ML IV ONE (21:04)
[2016-11-13] MEDS ORDERED: RINGERS SOLUTION,LACTATED 1,000 ML IV PRN (21:04)
--- NOTE | 2016-11-13 21:04 | ER Document Report ---
ED Blood Pressure Problem - General Chief Complaint: High Blood Pressure Stated Complaint: COUGH Time seen by provider: 21:04 Mode of Arrival: Ambulatory Information source: Patient TRAVEL OUTSIDE OF THE [place] IN LAST 30 DAYS: No - HPI Patient complains to provider of: High blood pressure Onset/Duration: Gradual, Persistent Quality of pain: Achy Severity: Moderate Pain Level: 3 Problem is: New problem Pt currently taking medication for problem: No Associated symptoms: Blurred vision, Dizziness, Headache, Lightheaded Similar symptoms previously: No Recently seen / treated by doctor: Yes Notes: Patient is a 25-year-old female who is approximately 9 days from a normal vaginal delivery, who presents to the emergency room complaining of headache, tingling sensation in her hands, dizziness and lightheadedness, lower extremity edema and elevated blood pressure, she reports that she's had a couple of elevated blood pressures during her but was never placed on medication for this, she was treated for preeclampsia during one of her previous pregnancies, - Related Data Allergies/Adverse Reactions: shrimp Allergy (Verified 11/13/16 23:10) shrimp Allergy (Uncoded 11/04/16 04:59) Past Medical History - General Information source: Patient - Social History Smoking Status: Unknown if Ever Smoked Family History: Reviewed & Not Pertinent Patient has suicidal ideation: No Patient has homicidal ideation: No - Past Medical History Cardiac Medical History: Reports: Hx DVT Pulmonary Medical History: Reports: Hx Asthma, Hx Bronchitis Renal/ Medical History: Reports: Hx Kidney Stones. Denies: Hx Peritoneal Dialysis Surgical Hx: Negative - Immunizations Hx Diphtheria, Pertussis, Tetanus Vaccination: Yes Hx Pneumococcal Vaccination: 04/10/14 Review of Systems - Review of Systems Constitutional: No symptoms reported EENT: No symptoms reported Cardiovascular: Dizziness, Lightheaded, Edema Respiratory: No symptoms reported Gastrointestinal: No symptoms reported Genitourinary: No symptoms reported Female Genitourinary: No symptoms reported Musculoskeletal: No symptoms reported Skin: No symptoms reported Hematologic/Lymphatic: No symptoms reported Neurological/Psychological: See HPI -: Yes All other systems reviewed and negative Physical Exam - Vital signs Vitals: Temp Pulse Resp BP Pulse Ox 97.8 F 104 H 16 141/98 H 98 11/13/16 15:34 11/13/16 15:34 11/13/16 15:34 11/13/16 15:34 11/13/16 15:34 Interpretation: Hypertensive, Tachycardic - General General appearance: Appears well, Alert - HEENT Head: Normocephalic, Atraumatic Eyes: Normal Pupils: PERRL - Respiratory Respiratory status: No respiratory distress Chest status: Nontender Breath sounds: Normal Chest palpation: Normal - Cardiovascular Rhythm: Regular Heart sounds: Normal auscultation Murmur: No - Abdominal Inspection: Normal Distension: No distension Bowel sounds: Normal Tenderness: Nontender Organomegaly: No organomegaly - Back Back: Normal, Nontender - Extremities General upper extremity: Normal inspection, Nontender, Normal color, Normal ROM , Normal temperature General lower extremity: Normal inspection, Nontender, Normal color, Normal ROM , Normal temperature, Normal weight bearing. No: Benjamin's sign - Neurological Neuro grossly intact: Yes Cognition: Normal Orientation: AAOx4 Conner Coma Scale Eye Opening: Spontaneous Iraan Coma Scale Verbal: Oriented Conner Coma Scale Motor: Obeys Commands Iraan Coma Scale Total: 15 Speech: Normal Motor strength normal: LUE, RUE, LLE, RLE Sensory: Normal - Psychological Associated symptoms: Normal affect, Normal mood - Skin Skin Temperature: Warm Skin Moisture: Dry Skin Color: Normal Course - Re-evaluation Re-evalutation: 11/13/16 21:[address] Purvis who would like the patient to be admitted - Vital Signs Vital signs: Temp Pulse Resp BP Pulse Ox 98.0 F 86 20 170/92 H 97 11/13/16 19:05 11/13/16 19:05 11/13/16 19:05 11/13/16 19:05 11/13/16 19:05 - Laboratory Result Diagrams: 11/13/16 16:00 11/13/16 16:00 Laboratory results interpreted by me: 11/13/16 11/13/16 11/13/16 16:00 16:00 16:05 Hgb 11.2 L MCV 73 L MCH 22.6 L MCHC 30.9 L RDW 17.4 H Glucose 74 L Uric Acid 7.6 H ALT 66 H Lactate Dehydrogenase 992 H Urine Protein 30 H Urine Blood LARGE H Urine Urobilinogen 2.0 H Ur Leukocyte Esterase LARGE H Urine Ascorbic Acid 40 H - Diagnostic Test Radiology reviewed: Image reviewed, Reports reviewed Critical Care Note - Critical Care Note Total time excluding time spent on procedures (mins): 30 Comments: Patient with elevated blood pressure and other signs and symptoms consistent with preeclampsia, discussed with the on-call [employer] OPERATOR who requested patient be sent right to labor and delivery unit for admission Discharge - Discharge Clinical Impression: Preeclampsia Qualifiers: Trimester: unspecified trimester Qualified Code(s): O14.90 - Unspecified pre- eclampsia, unspecified trimester Condition: Fair Disposition: ADMITTED INPATIENT Admitting Provider: [facility] Admitted: Labor and Delivery
[2016-11-13] MEDS ORDERED: LABETALOL HCL INJ 20 MG/4 ML DISP.SYRIN IV ONE ×2 (21:51→22:54)
[2016-11-13] MEDS ORDERED: MAGNESIUM SULFATE 4 GM/100 ML RTUPB IV ONE (21:51)
--- NOTE | 2016-11-13 22:00 | L&D Flow Sheet ---
LD Flowsheet Datetime Report Generated by CPN: 11/13/2016 22:00 Datetime: 11/13/2016 21:57 IV/Blood Work: IV Started; IV Bolus Started (Annotations: 18g rfa LR at 125ml/hr) (Mari Villanueva) Datetime: 11/13/2016 21:54 NBP Sys/Rachel/Mean (mmHg): 131 (QS system process) : 83 (QS system process) : 99 (QS system process) Pulse: 82 (QS system process) Datetime: 11/13/2016 21:46 Patient Care Comments: patient to the unit from er as admit for pre-e, to be placed on mag. (Mari Villanueva) Communication Comments: Report recieved from Juan goldstein Rn. (Mari Villanueva)
[2016-11-14 06:16] LABS: ABSOLUTE BASOPHILS # (AUTO) 0.1 10^3/uL (0.0-0.2); ABSOLUTE EOSINOPHILS # (AUTO) 0.5 10^3/uL (0.0-0.6); ABSOLUTE LYMPHOCYTES (AUTO) 2.4 10^3/uL (0.5-4.7); ABSOLUTE MONOCYTES (AUTO) 0.6 10^3/uL (0.1-1.4); ABSOLUTE NEUT (AUTO) 2.5 10^3/uL (1.7-8.2); BASOPHILS % (AUTO) 1.1 % (0-2); EOSINOPHILS % (AUTO) 7.9 % (0-6); HEMATOCRIT 35.7 % (36.0-47.0); HEMOGLOBIN 11.2 g/dL (12.0-15.5); HGB HCT DIFFERENCE -2.1; LYMPHOCYTES % (AUTO) 39.6 % (13-45); MEAN CORPUSCULAR HEMOGLOBIN 22.7 pg (27.0-33.4); MEAN CORPUSCULAR HGB CONC 31.5 g/dL (32.0-36.0); MEAN CORPUSCULAR VOLUME 72 fl (80-97); MONOCYTES % (AUTO) 10.2 % (3-13); RED BLOOD COUNT 4.94 10^6/uL (3.72-5.28); RED CELL DISTRIBUTION WIDTH 17.7 % (11.5-14.0); SEGMENTED NEUTROPHILS % (AUTO) 41.2 % (42-78); WHITE BLOOD COUNT 6.2 10^3/uL (4.0-10.5)
[2016-11-14 06:27] LABS: ALANINE AMINOTRANSFERASE 57 U/L (9-52); ALBUMIN 3.5 g/dL (3.5-5.0); ALKALINE PHOSPHATASE 102 U/L (38-126); ANION GAP 11 (5-19); ASPARTATE AMINO TRANSFERASE 27 U/L (14-36); BILIRUBIN,TOTAL 0.5 mg/dL (0.2-1.3); BLOOD UREA NITROGEN 14 mg/dL (7-20); CALCIUM 9.1 mg/dL (8.4-10.2); CARBON DIOXIDE 26 mmol/L (22-30); CHLORIDE 103 mmol/L (98-107); CREATININE RESULT 0.97 mg/dL (0.52-1.25); GLUCOSE 88 mg/dL (75-110); LDH 823 U/L (313-618); POTASSIUM 4.6 mmol/L (3.6-5.0); SODIUM 139.7 mmol/L (137-145); TOTAL PROTEIN 7.5 g/dL (6.3-8.2); URIC ACID 7.2 mg/dL (2.5-6.2)
--- NOTE | 2016-11-14 08:00 | L&D Flow Sheet ---
LD Flowsheet Datetime Report Generated by CPN: 11/14/2016 08:00 Datetime: 11/14/2016 07:30 Respirations: 16 (Nelida Summers, SABRA) Temperature (F): 98.0 (Nelida Summers, RN) Temperature (C): 36.7 (QS system process) Pain Scale: 0 (Nelida Summers, RN) Pain Presence: None/Denies (Nelida Summers, RN) Pain Type: N/A (Nelida Summers, RN) Datetime: 11/14/2016 07:24 Level of Consciousness: Fully Conscious (Nelida Kristopher, RN) DTR's/Clonus: No Clonus (Nelida Kristopher, RN) Headache: Denies (Nelida Kristopher, RN) Breath Sounds, Left: Clear and Equal (Nelida Kristopher, RN) Breath Sounds, Right: Clear and Equal (Nelida Kristopher, RN) Nausea/Vomiting: Denies (Nelida Kristopher, RN) RUQ Epigastric Pain: Denies (Nelida Kristopher, RN) Datetime: 11/14/2016 07:15 NBP Sys/Rachel/Mean (mmHg): 131 (QS system process) : 87 (QS system process) : 104 (QS system process) Pulse: 87 (QS system process) Datetime: 11/14/2016 07:00 Level of Consciousness: Fully Conscious (Mari Villanueva) DTR's/Clonus: DTRs 2+; No Clonus (Mari Villanueva) Headache: Denies (Mari Villanueva) Breath Sounds, Left: Clear and Equal (Mari Villanueva) Breath Sounds, Right: Clear and Equal (Mari Villanueva) Nausea/Vomiting: Denies (Mari Villanueva) RUQ Epigastric Pain: Denies (Mari Villanueva) Datetime: 11/14/2016 06:00 Level of Consciousness: Fully Conscious (Mari Villanueva) DTR's/Clonus: DTRs 2+; No Clonus (Mari Villanueva) Headache: Denies (Mari Villanueva) Breath Sounds, Left: Clear and Equal (Mari Villanueva) Breath Sounds, Right: Clear and Equal (Mari Villanueva) Nausea/Vomiting: Denies (Mari Villanueva) RUQ Epigastric Pain: Denies (Mari Villanueva) Datetime: 11/14/2016 05:01 NBP Sys/Rachel/Mean (mmHg): 117 (QS system process) : 72 (QS system process) : 89 (QS system process) Pulse: 75 (QS system process) Datetime: 11/14/2016 05:00 Level of Consciousness: Fully Conscious (Mari Villanueva) DTR's/Clonus: DTRs 2+; No Clonus (Mari Villanueva) Headache: Denies (Mari Villanueva) Breath Sounds, Left: Clear and Equal (Mari Villanueva) Breath Sounds, Right: Clear and Equal (Mari Villanueva) Nausea/Vomiting: Denies (Mari Villanueva) RUQ Epigastric Pain: Denies (Mari Villanueva) Datetime: 11/14/2016 04:01 NBP Sys/Rachel/Mean (mmHg): 124 (QS system process) : 66 (QS system process) : 89 (QS system process) Pulse: 100 (QS system process) Datetime: 11/14/2016 04:00 Temperature (F): 97.7 (Mari Villanueva) Temperature (C): 36.5 (QS system process) Temperature Route: Oral (Mari Villanueva) Level of Consciousness: Fully Conscious (Mari Villanueva) DTR's/Clonus: DTRs 2+; No Clonus (Mari Villanueva) Headache: Denies (Mari Villanueva) Breath Sounds, Left: Clear and Equal (Mari Villanueva) Breath Sounds, Right: Clear and Equal (Mari Villanueva) Nausea/Vomiting: Denies (Mari Villanueva) RUQ Epigastric Pain: Denies (Mari Villanueva) Datetime: 11/14/2016 03:01 NBP Sys/Rachel/Mean (mmHg): 125 (QS system process) : 77 (QS system process) : 94 (QS system process) Pulse: 83 (QS system process) Datetime: 11/14/2016 03:00 Level of Consciousness: Fully Conscious (Mari Villanueva) DTR's/Clonus: DTRs 2+; No Clonus (Mari Villanueva) Headache: Denies (Mari Villanueva) Breath Sounds, Left: Clear and Equal (Mari Villanueva) Breath Sounds, Right: Clear and Equal (Mari Villanueva) Nausea/Vomiting: Denies (Mari Villanueva) RUQ Epigastric Pain: Denies (Mari Villanueva) Datetime: 11/14/2016 02:01 NBP Sys/Rachel/Mean (mmHg): 129 (QS system process) : 77 (QS system process) : 95 (QS system process) Pulse: 80 (QS system process) Datetime: 11/14/2016 02:00 Level of Consciousness: Fully Conscious (Mari Villanueva) DTR's/Clonus: DTRs 2+; No Clonus (Mari Villanueva) Headache: Denies (Mari Villanueva) Breath Sounds, Left: Clear and Equal (Mari Villanueva) Breath Sounds, Right: Clear and Equal (Mari Villanueva) Nausea/Vomiting: Denies (Mari Villanueva) RUQ Epigastric Pain: Denies (Mari Villanueva) Datetime: 11/14/2016 01:31 NBP Sys/Rachel/Mean (mmHg): 117 (QS system process) : 77 (QS system process) : 91 (QS system process) Pulse: 82 (QS system process) Datetime: 11/14/2016 01:01 NBP Sys/Rachel/Mean (mmHg): 132 (QS system process) : 85 (QS system process) : 103 (QS system process) Pulse: 74 (QS system process) Datetime: 11/14/2016 01:00 Level of Consciousness: Fully Conscious (Mari Villanueva) DTR's/Clonus: DTRs 2+; No Clonus (Mari Villanueva) Headache: Denies (Mari Villanueva) Breath Sounds, Left: Clear and Equal (Mari Villanueva) Breath Sounds, Right: Clear and Equal (Mari Villanueva) Nausea/Vomiting: Denies (Mari Villanueva) RUQ Epigastric Pain: Denies (Mari Villanueva) Datetime: 11/14/2016 00:31 NBP Sys/Rachel/Mean (mmHg): 124 (QS system process) : 78 (QS system process) : 96 (QS system process) Pulse: 77 (QS system process) Datetime: 11/14/2016 00:01 NBP Sys/Rachel/Mean (mmHg): 119 (QS system process) : 79 (QS system process) : 95 (QS system process) Pulse: 81 (QS system process) Datetime: 11/14/2016 00:00 Pain Scale: 0 (Mari Villanueva) Pain Presence: None/Denies (Mari Villanueva) Pain Assessment Comments: patient stated after she ate her headache was gone. (Mari Villanueva) Level of Consciousness: Fully Conscious (Mari Villanueva) DTR's/Clonus: DTRs 2+; No Clonus (Mari Villanueva) Headache: Denies (Mari Villanueva) Breath Sounds, Left: Clear and Equal (Mari Villanueva) Breath Sounds, Right: Clear and Equal (Mari Villanueva) Nausea/Vomiting: Denies (Mari Villanueva) RUQ Epigastric Pain: Denies (Mari Villanueva) Datetime: 11/13/2016 23:31 NBP Sys/Rachel/Mean (mmHg): 124 (QS system process) : 77 (QS system process) : 96 (QS system process) Pulse: 77 (QS system process) Datetime: 11/13/2016 23:00 Level of Consciousness: Fully Conscious (Mari Villanueva) DTR's/Clonus: DTRs 2+; No Clonus (Mari Villanueva) Headache: Frontal (Mari Villanueva) Breath Sounds, Left: Clear and Equal (Mari Villanueva) Breath Sounds, Right: Clear and Equal (Mari Villanueva) Nausea/Vomiting: Denies (Mari Villanueva) RUQ Epigastric Pain: Denies (Mari Villanueva) Datetime: 11/13/2016 22:48 NBP Sys/Rachel/Mean (mmHg): 119 (QS system process) : 79 (QS system process) : 92 (QS system process) Pulse: 80 (QS system process) Datetime: 11/13/2016 22:28 NBP Sys/Rachel/Mean (mmHg): 136 (QS system process) : 90 (QS system process) : 109 (QS system process) Pulse: 74 (QS system process) Datetime: 11/13/2016 22:23 NBP Sys/Rachel/Mean (mmHg): 133 (QS system process) : 87 (QS system process) : 105 (QS system process) Pulse: 75 (QS system process) Datetime: 11/13/2016 22:19 NBP Sys/Rachel/Mean (mmHg): 133 (QS system process) : 86 (QS system process) : 105 (QS system process) Pulse: 83 (QS system process) Datetime: 11/13/2016 22:15 Level of Consciousness: Fully Conscious (Mari Villanueva) DTR's/Clonus: DTRs 2+; No Clonus (Mari Villanueva) Headache: Frontal (Mari Villanueva) Breath Sounds, Left: Clear and Equal (Mari Villanueva) Breath Sounds, Right: Clear and Equal (Mari Villanueva) Nausea/Vomiting: Denies (Mari Villanueva) RUQ Epigastric Pain: Denies (Mari Villanueva) Datetime: 11/13/2016 22:14 Temperature (F): 97.3 (Mari Villanueva) Temperature (C): 36.3 (QS system process) Temperature Route: Oral (Mari Villanueva) Pain Scale: 3 (Mari Villanueva) Pain Presence: Constant (Mari Villanueva) Pain Type: Cramping (Mari Villanueva) Pain Location: Head (Mari Villanueva) Pain Goal: 0 (Mari Villanueva) Pain Relief Measures: Comfort Measures (Mari Villanueva) Datetime: 11/13/2016 22:13 NBP Sys/Rachel/Mean (mmHg): 135 (QS system process) : 73 (QS system process) : 97 (QS system process) Pulse: 77 (QS system process) Datetime: 11/13/2016 22:04 NBP Sys/Rachel/Mean (mmHg): 158 (QS system process) : 86 (QS system process) : 114 (QS system process) Pulse: 88 (QS system process) Datetime: 11/13/2016 22:00 Stage of : (Mari Villanueva) Level of Consciousness: Fully Conscious (Mari Villanueva) DTR's/Clonus: DTRs 2+; No Clonus (Mari Villanueva) Headache: Frontal (Mari Villanueva) Breath Sounds, Left: Clear and Equal (Mari Villanueva) Breath Sounds, Right: Clear and Equal (Mari Villanueva) Nausea/Vomiting: Denies (Mari Villanueva) RUQ Epigastric Pain: Denies (Mari Villanueva)
[2016-11-14] MEDS ORDERED: MAGNESIUM SULFATE 0 GM/0 ML RTUPB IV ONE (08:45)
--- NOTE | 2016-11-14 10:00 | L&D Flow Sheet ---
LD Flowsheet Datetime Report Generated by CPN: 11/14/2016 10:00 Datetime: 11/14/2016 09:31 NBP Sys/Rachel/Mean (mmHg): 128 (QS system process) : 86 (QS system process) : 103 (QS system process) Pulse: 85 (QS system process) Datetime: 11/14/2016 09:01 NBP Sys/Rachel/Mean (mmHg): 142 (QS system process) : 88 (QS system process) : 103 (QS system process) Pulse: 92 (QS system process) Datetime: 11/14/2016 09:00 Respirations: 16 (Nelida Kristopher, RN) Pain Scale: 0 (Nelida Kristopher, RN) Pain Presence: None/Denies (Nelida Kristopher, RN) Pain Type: N/A (Nelida Kristopher, RN) Level of Consciousness: Fully Conscious (Nelida Kristopher, RN) DTR's/Clonus: No Clonus (Nelida Kristopher, RN) Headache: Denies (Nelida Kristopher, RN) Breath Sounds, Left: Clear and Equal (Nelida Kristopher, RN) Breath Sounds, Right: Clear and Equal (Nelida Kristopher, RN) Nausea/Vomiting: Denies (Nelida Kristopher, RN) RUQ Epigastric Pain: Denies (Nelida Kristopher, RN) Datetime: 11/14/2016 08:31 NBP Sys/Rachel/Mean (mmHg): 126 (QS system process) : 76 (QS system process) : 97 (QS system process) Pulse: 79 (QS system process) Datetime: 11/14/2016 08:01 NBP Sys/Rachel/Mean (mmHg): 138 (QS system process) : 86 (QS system process) : 108 (QS system process) Pulse: 97 (QS system process) Datetime: 11/14/2016 08:00 Respirations: 16 (Nelida Kristopher, RN) Level of Consciousness: Fully Conscious (Nelida Kristopher, RN) DTR's/Clonus: No Clonus (Nelida Kristopher, RN) Headache: Denies (Nelida Kristopher, RN) Breath Sounds, Left: Clear and Equal (Nelida Kristopher, RN) Breath Sounds, Right: Clear and Equal (Nelida Kristopher, RN) Nausea/Vomiting: Denies (Nelida Kristopher, RN) RUQ Epigastric Pain: Denies (Nelida Warrenmes, RN)
[2016-11-14 10:57] LABS: ABSOLUTE BASOPHILS # (AUTO) 0.1 10^3/uL (0.0-0.2); ABSOLUTE EOSINOPHILS # (AUTO) 0.4 10^3/uL (0.0-0.6); ABSOLUTE LYMPHOCYTES (AUTO) 2.3 10^3/uL (0.5-4.7); ABSOLUTE MONOCYTES (AUTO) 0.5 10^3/uL (0.1-1.4); ABSOLUTE NEUT (AUTO) 3.6 10^3/uL (1.7-8.2); BASOPHILS % (AUTO) 1.1 % (0-2); EOSINOPHILS % (AUTO) 5.2 % (0-6); HEMATOCRIT 35.3 % (36.0-47.0); HEMOGLOBIN 11.2 g/dL (12.0-15.5); HGB HCT DIFFERENCE -1.7; LYMPHOCYTES % (AUTO) 33.8 % (13-45); MEAN CORPUSCULAR HEMOGLOBIN 22.9 pg (27.0-33.4); MEAN CORPUSCULAR HGB CONC 31.7 g/dL (32.0-36.0); MEAN CORPUSCULAR VOLUME 72 fl (80-97); MONOCYTES % (AUTO) 7.7 % (3-13); RED BLOOD COUNT 4.89 10^6/uL (3.72-5.28); RED CELL DISTRIBUTION WIDTH 17.8 % (11.5-14.0); SEGMENTED NEUTROPHILS % (AUTO) 52.2 % (42-78); WHITE BLOOD COUNT 6.8 10^3/uL (4.0-10.5)
[2016-11-14 11:13] LABS: ALANINE AMINOTRANSFERASE 51 U/L (9-52); ALBUMIN 4.1 g/dL (3.5-5.0); ALKALINE PHOSPHATASE 100 U/L (38-126); ANION GAP 10 (5-19); ASPARTATE AMINO TRANSFERASE 31 U/L (14-36); BILIRUBIN,TOTAL 0.7 mg/dL (0.2-1.3); BLOOD UREA NITROGEN 12 mg/dL (7-20); CALCIUM 8.8 mg/dL (8.4-10.2); CARBON DIOXIDE 26 mmol/L (22-30); CHLORIDE 104 mmol/L (98-107); CREATININE RESULT 0.86 mg/dL (0.52-1.25); GLUCOSE 95 mg/dL (75-110); LDH 946 U/L (313-618); POTASSIUM 5.1 mmol/L (3.6-5.0); SODIUM 139.5 mmol/L (137-145); TOTAL PROTEIN 7.5 g/dL (6.3-8.2)
[2016-11-14 11:24] LABS: MAGNESIUM 4.9 mg/dL (1.6-2.3)
--- NOTE | 2016-11-14 12:00 | L&D Flow Sheet ---
LD Flowsheet Datetime Report Generated by CPN: 11/14/2016 12:00 Datetime: 11/14/2016 11:51 NBP Sys/Rachel/Mean (mmHg): 140 (QS system process) : 90 (QS system process) : 108 (QS system process) Pulse: 88 (QS system process) Datetime: 11/14/2016 11:36 NBP Sys/Rachel/Mean (mmHg): 142 (QS system process) : 99 (QS system process) : 117 (QS system process) Pulse: 88 (QS system process) Datetime: 11/14/2016 11:25 Communication Comments: Notified from lab of Magnesium level of 4.9. Dr. Ekta irvingied. No new orders, continue current POC. (Cherry Vitrano, RN) Datetime: 11/14/2016 11:24 NBP Sys/Rachel/Mean (mmHg): 138 (QS system process) : 91 (QS system process) : 110 (QS system process) Pulse: 98 (QS system process) Datetime: 11/14/2016 11:00 NBP Sys/Rachel/Mean (mmHg): 122 (QS system process) : 92 (QS system process) : 105 (QS system process) Pulse: 76 (QS system process) Respirations: 16 (Nelida Kristopher, RN) Temperature (F): 98.2 (Nelida Kristopher, RN) Temperature (C): 36.8 (QS system process) Level of Consciousness: Fully Conscious (Nelida Kristopher, RN) DTR's/Clonus: No Clonus (Nelida Kristopher, RN) Headache: Denies (Nelida Kristopher, RN) Breath Sounds, Left: Clear and Equal (Nelida Kristopher, RN) Breath Sounds, Right: Clear and Equal (Nelida Kristopher, RN) Nausea/Vomiting: Denies (Nelida Kristopher, RN) RUQ Epigastric Pain: Denies (Nelida Kristopher, RN) Datetime: 11/14/2016 10:30 NBP Sys/Rachel/Mean (mmHg): 130 (QS system process) : 85 (QS system process) : 102 (QS system process) Pulse: 82 (QS system process) Datetime: 11/14/2016 10:24 NBP Sys/Rachel/Mean (mmHg): 127 (QS system process) : 84 (QS system process) : 101 (QS system process) Pulse: 86 (QS system process) Datetime: 11/14/2016 10:01 NBP Sys/Rachel/Mean (mmHg): 135 (Annotations: pt coughing and bending arm during BP reading) (Nelida Summers RN) : 92 (QS system process) : 108 (QS system process) Pulse: 77 (QS system process) Datetime: 11/14/2016 10:00 Level of Consciousness: Fully Conscious (Nelida Kristopher, RN) DTR's/Clonus: No Clonus (Nelida Kristopher, RN) Headache: Denies (Nelida Kristopher, RN) Breath Sounds, Left: Clear and Equal (Nelida Kristopher, RN) Breath Sounds, Right: Clear and Equal (Nelida Kristopher, RN) Nausea/Vomiting: Denies (Nelida Warrenmes, RN) RUQ Epigastric Pain: Denies (Nelida Kristopher, RN)
[2016-11-14] MEDS ORDERED: ENOXAPARIN SODIUM INJ 40 MG/0.4 ML DISP.SYRIN SUBCUT ONE (12:15)
--- NOTE | 2016-11-14 12:29 | PDOC PROGRESS REPORT ---
Subjective Progress Note for:: 11/14/16 Subjective:: Denies LOGAN, Blurry vision, RUQ pain, feels that she needs to have a BM, +Flatus, pt reports that her hands are not numb any longer and she is feeling better. Physical Exam - Physical Exam Vital Signs: Temp Pulse Resp BP Pulse Ox 98.0 F 86 20 170/92 H 97 11/13/16 19:05 11/13/16 19:05 11/13/16 19:05 11/13/16 19:05 11/13/16 19:05 General appearance: PRESENT: no acute distress, well-developed, well-nourished Head exam: PRESENT: atraumatic, normocephalic Respiratory exam: PRESENT: clear to auscultation brenden, symmetrical, unlabored Cardiovascular exam: PRESENT: RRR. ABSENT: diastolic murmur, rubs, systolic murmur Pulses: PRESENT: normal dorsalis pedis pul, +2 pedal pulses bilateral Vascular exam: PRESENT: normal capillary refill GI/Abdominal exam: PRESENT: normal bowel sounds, soft Extremities exam: PRESENT: full ROM. ABSENT: calf tenderness, clubbing, pedal edema Neurological exam: PRESENT: alert, awake, oriented to person, oriented to place , oriented to time, oriented to situation, CN II-XII grossly intact, other - dminished LE DTR reflexes bilaterally. ABSENT: motor sensory deficit Psychiatric exam: PRESENT: appropriate affect, normal mood. ABSENT: homicidal ideation, suicidal ideation Skin exam: PRESENT: dry, intact, warm. ABSENT: cyanosis, rash Result Laboratory Results: 11/14/16 10:39 11/14/16 10:39 11/14/16 11/14/16 11/14/16 05:49 05:49 10:39 WBC 6.2 6.8 RBC 4.94 4.89 Hgb 11.2 L 11.2 L Hct 35.7 L 35.3 L MCV 72 L 72 L MCH 22.7 L 22.9 L MCHC 31.5 L 31.7 L RDW 17.7 H 17.8 H Plt Count 473 H 469 H Seg Neutrophils % 41.2 L 52.2 Lymphocytes % 39.6 33.8 Monocytes % 10.2 7.7 Eosinophils % 7.9 H 5.2 Basophils % 1.1 1.1 Absolute Neutrophils 2.5 3.6 Absolute Lymphocytes 2.4 2.3 Absolute Monocytes 0.6 0.5 Absolute Eosinophils 0.5 0.4 Absolute Basophils 0.1 0.1 Sodium 139.7 Potassium 4.6 Chloride 103 Carbon Dioxide 26 Anion Gap 11 BUN 14 Creatinine 0.97 Est GFR ( Amer) > 60 Est GFR (Non-Af Amer) > 60 Glucose 88 Uric Acid 7.2 H Calcium 9.1 Magnesium Total Bilirubin 0.5 AST 27 ALT 57 H Alkaline Phosphatase 102 Total Protein 7.5 Albumin 3.5 11/14/16 10:39 WBC RBC Hgb Hct MCV MCH MCHC RDW Plt Count Seg Neutrophils % Lymphocytes % Monocytes % Eosinophils % Basophils % Absolute Neutrophils Absolute Lymphocytes Absolute Monocytes Absolute Eosinophils Absolute Basophils Sodium 139.5 Potassium 5.1 H Chloride 104 Carbon Dioxide 26 Anion Gap 10 BUN 12 Creatinine 0.86 Est GFR ( Amer) > 60 Est GFR (Non-Af Amer) > 60 Glucose 95 Uric Acid 7.0 H Calcium 8.8 Magnesium 4.9 H* Total Bilirubin 0.7 AST 31 ALT 51 Alkaline Phosphatase 100 Total Protein 7.5 Albumin 4.1 Impressions: Chest X-Ray 11/13/16 15:56 IMPRESSION: NO SIGNIFICANT RADIOGRAPHIC FINDING IN THE CHEST. Assessment & Plan - Diagnosis (1) Preeclampsia Qualifiers: Trimester: unspecified trimester Qualified Code(s): O14.90 - Unspecified pre-eclampsia, unspecified trimester Is this a current diagnosis for this admission?: YesPlan: Admitted for PP PreE from the ER with elevated BPs, LOGAN, and swelling. Pt with adequate Diuresis since admission last pm 2200. UOP 206.25ml/hr (total 2475ml) . Total in = 1300ml (108.3ml). BPs normal to mild range. Will discontinue Magnesium Sulfate. Continue Labs q 6-8 hours. Ok to transfer to the floor for continued monitoring. Will begin Adalat CC 30mg daily. (2) Delivery normal Is this a current diagnosis for this admission?: NoPlan: S/p recent approx 9 days ago. Doing well from . (3) DVT complicating Is this a current diagnosis for this admission?: YesPlan: H/o DVT in period with prior and pt has been on LOvenox 40mg SQ Q 12 hours since beginning of . WIll continue dosing during her admission. Will get Hematology consult to advise on how long to continue weight based treatment dosing versus prophy dosing. Mechanical SCDs to be continued. - Time Time Spent with patient: 15-24 minutes Critical Time spent with patient: Less than 15 minutes Medications reviewed and adjusted accordingly: Yes Anticipated discharge: Home Within: within 48 hours - Inpatient Certification Medical Necessity: Need Close Monitoring Due to Risk of Patient Decompensation, Need for Neurological Checks, Risk of Complication if Not Cared For in Hospital Post Hospital Care: D/C Order Tracer Documentation - Plan Summary Plan Summary: To for continued monitoring and will begin Adalat CC 30mg po daily. Hematology consult.
[2016-11-14] MEDS ORDERED: NIFEDIPINE 30 MG TAB.ER.24 PO ONE (13:00)
--- NOTE | 2016-11-14 14:25 | PDOC DISCHARGE SUMMARY ---
General - Admit/Disc Date/PCP Admission Date/Primary Care Provider: 11/13/16 21:14 BOBBY STEARNS MD Discharge Date: 11/14/16 - Discharge Diagnosis (1) Preeclampsia Is this a current diagnosis for this admission?: YesSummary: Magnesium disconitinued. Pt's mother who has all of her children has apparently been dx with Influenza. Pt is needing to leave AMA to care for her children. She is aware of risks of PP PreE and will return if symptoms. Rx adalat CC 30mg given. F/u in office tomorrow at 0930. Tamiflu prophy dose given. (2) Delivery normal Is this a current diagnosis for this admission?: NoSummary: no issues from pp (3) DVT complicating Is this a current diagnosis for this admission?: YesSummary: Pt will need f/u for h/o DVT with last . Continue with Lovenox 40mg SQ Q 12 hours. F/u with hematology as outpt. (4) Thrombocytosis Is this a current diagnosis for this admission?: YesSummary: Dr. Servin consulted - but was going to see pt in the am. Pt leaving AMA. Will need f/u with Hematology as outpt. - Additional Information Home Medications: Pnv with Ca,No.72/Iron,Carb/FA [ Plus Iron Tablet] 1 each PO [id number] Enoxaparin Sodium [Lovenox Inj 40 mg/0.4 ml Disp.syrin] 40 mg SUBCUT QAM #30 disp.syrin 11/06/16 Ferrous Sulfate [Feosol 325 mg Tablet] 325 mg PO BID #60 tablet 11/06/16 History of Present Illness History of Present Illness: DARLIN GRIFFIN is a 25 year old female admitted last evening from the ER for PP PreE. Now with adequate diuresis and was being transferred to the floor but needs to leave ama for Childcare issues. Physical Exam - Physical Exam Vital Signs: Temp Pulse Resp BP Pulse Ox 98.0 F 86 20 170/92 H 97 11/13/16 19:05 11/13/16 19:05 11/13/16 19:05 11/13/16 19:05 11/13/16 19:05 General appearance: PRESENT: no acute distress, cooperative, well-developed, well-nourished Respiratory exam: PRESENT: clear to auscultation brenden, symmetrical Cardiovascular exam: PRESENT: RRR. ABSENT: diastolic murmur, rubs, systolic murmur Vascular exam: PRESENT: normal capillary refill GI/Abdominal exam: PRESENT: normal bowel sounds, soft. ABSENT: distended, guarding, mass, organolmegaly, rebound, tenderness Rectal exam: PRESENT: deferred Extremities exam: PRESENT: full ROM. ABSENT: calf tenderness, clubbing, pedal edema Musculoskeletal exam: PRESENT: ambulatory Neurological exam: PRESENT: alert, awake, oriented to person, oriented to place , oriented to time, oriented to situation, CN II-XII grossly intact. ABSENT: motor sensory deficit Psychiatric exam: PRESENT: appropriate affect, normal mood. ABSENT: homicidal ideation, suicidal ideation Skin exam: PRESENT: dry, intact, warm. ABSENT: cyanosis, rash Result Laboratory Results: 11/14/16 10:39 11/14/16 10:39 11/14/16 11/14/16 11/14/16 05:49 05:49 10:39 WBC 6.2 6.8 RBC 4.94 4.89 Hgb 11.2 L 11.2 L Hct 35.7 L 35.3 L MCV 72 L 72 L MCH 22.7 L 22.9 L MCHC 31.5 L 31.7 L RDW 17.7 H 17.8 H Plt Count 473 H 469 H Seg Neutrophils % 41.2 L 52.2 Lymphocytes % 39.6 33.8 Monocytes % 10.2 7.7 Eosinophils % 7.9 H 5.2 Basophils % 1.1 1.1 Absolute Neutrophils 2.5 3.6 Absolute Lymphocytes 2.4 2.3 Absolute Monocytes 0.6 0.5 Absolute Eosinophils 0.5 0.4 Absolute Basophils 0.1 0.1 Sodium 139.7 Potassium 4.6 Chloride 103 Carbon Dioxide 26 Anion Gap 11 BUN 14 Creatinine 0.97 Est GFR ( Amer) > 60 Est GFR (Non-Af Amer) > 60 Glucose 88 Uric Acid 7.2 H Calcium 9.1 Magnesium Total Bilirubin 0.5 AST 27 ALT 57 H Alkaline Phosphatase 102 Total Protein 7.5 Albumin 3.5 11/14/16 10:39 WBC RBC Hgb Hct MCV MCH MCHC RDW Plt Count Seg Neutrophils % Lymphocytes % Monocytes % Eosinophils % Basophils % Absolute Neutrophils Absolute Lymphocytes Absolute Monocytes Absolute Eosinophils Absolute Basophils Sodium 139.5 Potassium 5.1 H Chloride 104 Carbon Dioxide 26 Anion Gap 10 BUN 12 Creatinine 0.86 Est GFR ( Amer) > 60 Est GFR (Non-Af Amer) > 60 Glucose 95 Uric Acid 7.0 H Calcium 8.8 Magnesium 4.9 H* Total Bilirubin 0.7 AST 31 ALT 51 Alkaline Phosphatase 100 Total Protein 7.5 Albumin 4.1 Impressions: Chest X-Ray 11/13/16 15:56 IMPRESSION: NO SIGNIFICANT RADIOGRAPHIC FINDING IN THE CHEST. Plan Discharge Plan: Left AMA. Creatinine improved but will need f/u as outpt to determine resolved elevated Creatinine. PP PreE - rx adalat given and risks of leaving AMA reviewed. She will f/u in office. Time Spent: Less than 30 Minutes
--- NOTE | 2016-11-14 14:38 | Admission Physical ---
Datetime Report Generated by CPN: 11/14/2016 14:37 CURRENT ADMISSION Chief Complaint: Illness; Other Indication for Induction: Not Applicable Admit Impression- Other: PreEclampsia Admit Plan: Observation/Evaluation Admit Plan- Other: PreE labs, Mag Sulfate, monitoring ALLERGIES Medication Allergies: No Medication Allergies: shrimp (11/13/2016) Latex: No Latex Allergies Food Allergies: shellfish Environmental Allergies: no OBSTETRICAL HISTORY EDC: 11/04/2016 00:00 : 5 Para: 3 Term: 2 : 1 SAB: 1 IAB: 0 Ectopic: 0 Livin Cesareans: 0 VBACs: 0 Multiple Births: 0 Gestational Diabetes: No Rh Sensitization: No Incompetent Cervix: Yes BONI: No Infertility: No ART Treatment: No Uterine Anomaly: No IUGR: No Hx Previous C/S: No Macrosomia: No Hx Loss/Stillborn: No PIH: Yes Hx : No Placenta Previa/Abruption: No Depression/PP Depression: Yes PTL/PROM: No Post Hemorrhage: No Current Procedures: Ultrasound; NST Obstetrical History Comments: G1 SAB G2 01/15/2013, NVD, girl 6lb 5oz 37.2 weeks G3 04/08/2014, NVD, girl 6lbs 2oz 38.2 weeks G4 10/2015, NVD, girl 5lbs 35-36 weeks SEE RECORDS Alcohol: No Marijuana : No Cocaine: No Other Illicit Drugs: No Cigarettes: Never Smoker. [id number] MEDICAL HISTORY Diabetes: No Blood Transfusion: No Pulmonary Disease (Asthma, TB): Yes Breast Disease: No Hypertension: No Director Information Surgery: No Heart Disease: No Hosp/Surgery: No Autoimmune Disorder: No Anesthetic Complications: No Kidney Disease: No Abnormal Pap Smear: No Neuro/Epilepsy: No Psychiatric Disorders: No Other Medical Diseases: No Hepatitis/Liver Disease: No Significant Family History: No Varicosities/Phlebitis: Yes Trauma/Violence : No Thyroid Dysfunction: No INFECTIOUS HISTORY Gonorrhea: No Genital Herpes: No Chlamydia: No Tuberculosis: No Syphilis: No Hepatitis: No HIV/AIDS Exposure: No Rash or Viral Illness: No HPV: No PHYSICAL EXAM General: Normal HEENT: Normal Neurologic: Normal Thyroid: Normal Heart: Normal Lungs: Normal Breast: Normal Back: Normal Abdomen: Normal Genitourinary Exam: Normal Extremities: Normal DTRs: Normal Pelvic Type: Adequate Physical Exam Comments: no clonus Vital Signs: Reviewed Details Vital Signs: trending down VAGINAL EXAM Dilatation: 10 Effacement: 100 Station: 1 MEMBRANES Membranes: Intact FETUS A EGA: 41.3 Monitoring: External US FHR- Baseline: 130 Variability: Moderate 6-25bpm Accelerations: 15X15 Decelerations: None Admit Comment: labs indicative of PreE. will mag x 12 hours and monitor accordingly. BPs have responded to labetolol 10 mg x 1 dose PLANS FOR LABOR AND DELIVERY Labor and Delivery: None Pain Management: None Feeding Preference: Formula Benefit of Breast Feed Discussed: Yes Circumcision: N/A INFORMED CONSENT Signature: with User ID: [email or web address]
--- NOTE | 2016-11-14 19:00 | L&D Flow Sheet ---
LD Flowsheet Datetime Report Generated by CPN: 11/14/2016 19:00 Datetime: 11/14/2016 14:20 Temperature (F): 98.0 (Nelida Kristopher, RN) Temperature (C): 36.7 (QS system process) Pain Scale: 0 (Nelida Kristopher, RN) Pain Presence: None/Denies (Nelida Kristopher, RN) Pain Type: N/A (Nelida Kristopher, RN) Datetime: 11/14/2016 14:10 NBP Sys/Rachel/Mean (mmHg): 134 (QS system process) : 88 (QS system process) : 107 (QS system process) Pulse: 86 (QS system process) Datetime: 11/14/2016 13:40 NBP Sys/Rachel/Mean (mmHg): 135 (QS system process) : 92 (QS system process) : 110 (QS system process) Pulse: 102 (QS system process) Datetime: 11/14/2016 13:10 NBP Sys/Racehl/Mean (mmHg): 135 (QS system process) : 98 (QS system process) : 112 (QS system process) Pulse: 82 (QS system process) Datetime: 11/14/2016 12:36 NBP Sys/Rachel/Mean (mmHg): 126 (QS system process) : 92 (QS system process) : 105 (QS system process) Pulse: 80 (QS system process) Datetime: 11/14/2016 12:21 NBP Sys/Rachel/Mean (mmHg): 130 (QS system process) : 86 (QS system process) : 103 (QS system process) Pulse: 78 (QS system process) Datetime: 11/14/2016 12:06 NBP Sys/Rachel/Mean (mmHg): 135 (QS system process) : 90 (QS system process) : 108 (QS system process) Pulse: 82 (QS system process) Datetime: 11/14/2016 11:51 NBP Sys/Rachel/Mean (mmHg): 140 (QS system process) : 90 (QS system process) : 108 (QS system process) Pulse: 88 (QS system process) Datetime: 11/14/2016 11:36 NBP Sys/Rachel/Mean (mmHg): 142 (QS system process) : 99 (QS system process) : 117 (QS system process) Pulse: 88 (QS system process) Datetime: 11/14/2016 11:25 Communication Comments: Notified from lab of Magnesium level of 4.9. Dr. Dash notified. No new orders, continue current POC. (Cherry Vitrano, RN) Datetime: 11/14/2016 11:24 NBP Sys/Rachel/Mean (mmHg): 138 (QS system process) : 91 (QS system process) : 110 (QS system process) Pulse: 98 (QS system process) Datetime: 11/14/2016 11:00 NBP Sys/Rachel/Mean (mmHg): 122 (QS system process) : 92 (QS system process) : 105 (QS system process) Pulse: 76 (QS system process) Respirations: 16 (Nelida Kristopher, RN) Temperature (F): 98.2 (Nelida Kristopher, RN) Temperature (C): 36.8 (QS system process) Level of Consciousness: Fully Conscious (Nelida Kristopher, RN) DTR's/Clonus: No Clonus (Nelida Kristopher, RN) Headache: Denies (Nelida Kristopher, RN) Breath Sounds, Left: Clear and Equal (Nelida Kristopher, RN) Breath Sounds, Right: Clear and Equal (Nelida Kristopher, RN) Nausea/Vomiting: Denies (Nelida Kristopher, RN) RUQ Epigastric Pain: Denies (Nelida Kristopher, RN) Datetime: 11/14/2016 10:30 NBP Sys/Rachel/Mean (mmHg): 130 (QS system process) : 85 (QS system process) : 102 (QS system process) Pulse: 82 (QS system process) Datetime: 11/14/2016 10:24 NBP Sys/Rachel/Mean (mmHg): 127 (QS system process) : 84 (QS system process) : 101 (QS system process) Pulse: 86 (QS system process) Datetime: 11/14/2016 10:01 NBP Sys/Rachel/Mean (mmHg): 135 (Annotations: pt coughing and bending arm during BP reading) (Nelida Kristopher, RN) : 92 (QS system process) : 108 (QS system process) Pulse: 77 (QS system process) Datetime: 11/14/2016 10:00 Level of Consciousness: Fully Conscious (Nelida Kristopher, RN) DTR's/Clonus: No Clonus (Nelida Kristopher, RN) Headache: Denies (Nelida Kristopher, RN) Breath Sounds, Left: Clear and Equal (Nelida Kristopher, RN) Breath Sounds, Right: Clear and Equal (Nelida Kristopher, RN) Nausea/Vomiting: Denies (Nelida Kristopher, RN) RUQ Epigastric Pain: Denies (Nelida Kristopher, RN) Datetime: 11/14/2016 09:31 NBP Sys/Rachel/Mean (mmHg): 128 (QS system process) : 86 (QS system process) : 103 (QS system process) Pulse: 85 (QS system process) Datetime: 11/14/2016 09:01 NBP Sys/Rachel/Mean (mmHg): 142 (QS system process) : 88 (QS system process) : 103 (QS system process) Pulse: 92 (QS system process) Datetime: 11/14/2016 09:00 Respirations: 16 (Nelida Kristopher, RN) Pain Scale: 0 (Nelida Kristopher, RN) Pain Presence: None/Denies (Nelida Kristopher, RN) Pain Type: N/A (Nelida Kristopher, RN) Level of Consciousness: Fully Conscious (Nelida Kristopher, RN) DTR's/Clonus: No Clonus (Nelida Kristopher, RN) Headache: Denies (Nelida Kristopher, RN) Breath Sounds, Left: Clear and Equal (Nelida Kristopher, RN) Breath Sounds, Right: Clear and Equal (Nelida Kristopher, RN) Nausea/Vomiting: Denies (Nelida Kristopher, RN) RUQ Epigastric Pain: Denies (Nelida Kristopher, RN) Datetime: 11/14/2016 08:31 NBP Sys/Rachel/Mean (mmHg): 126 (QS system process) : 76 (QS system process) : 97 (QS system process) Pulse: 79 (QS system process) Datetime: 11/14/2016 08:01 NBP Sys/Rachel/Mean (mmHg): 138 (QS system process) : 86 (QS system process) : 108 (QS system process) Pulse: 97 (QS system process) Datetime: 11/14/2016 08:00 Respirations: 16 (Nelida Kristopher, RN) Level of Consciousness: Fully Conscious (Nelida Kristopher, RN) DTR's/Clonus: No Clonus (Nelida Kristopher, RN) Headache: Denies (Nelida Kristopher, RN) Breath Sounds, Left: Clear and Equal (Nelida Kristopher, RN) Breath Sounds, Right: Clear and Equal (Nelida Kristopher, RN) Nausea/Vomiting: Denies (Nelida Kristopher, RN) RUQ Epigastric Pain: Denies (Nelida Kristopher, RN) Datetime: 11/14/2016 07:30 Respirations: 16 (Nelida Kristopher, RN) Temperature (F): 98.0 (Nelida Kristopher, RN) Temperature (C): 36.7 (QS system process) Pain Scale: 0 (Nelida Kristopher, RN) Pain Presence: None/Denies (Nelida Kristopher, RN) Pain Type: N/A (Nelida Kristopher, RN) Datetime: 11/14/2016 07:24 Level of Consciousness: Fully Conscious (Nelida Kristopher, RN) DTR's/Clonus: No Clonus (Nelida Kristopher, RN) Headache: Denies (Nelida Kristopher, RN) Breath Sounds, Left: Clear and Equal (Nelida Kristopher, RN) Breath Sounds, Right: Clear and Equal (Nelida Kristopher, RN) Nausea/Vomiting: Denies (Nelida Kristopher, RN) RUQ Epigastric Pain: Denies (Nelida Kristopher, RN) Datetime: 11/14/2016 07:15 NBP Sys/Rachel/Mean (mmHg): 131 (QS system process) : 87 (QS system process) : 104 (QS system process) Pulse: 87 (QS system process) Datetime: 11/14/2016 07:00 Level of Consciousness: Fully Conscious (Mari Villanueva) DTR's/Clonus: DTRs 2+; No Clonus (Mari Villanueva) Headache: Denies (Mari Villanueva) Breath Sounds, Left: Clear and Equal (Mari Villanueva) Breath Sounds, Right: Clear and Equal (Mari Villanueva) Nausea/Vomiting: Denies (Mari Villanueva) RUQ Epigastric Pain: Denies (Mari Villanueva)
[2016-11-14] MEDS ORDERED: ENOXAPARIN SODIUM INJ 40 MG/0.4 ML DISP.SYRIN SUBCUT SCH (22:00)
--- NOTE | 2016-11-15 06:00 | L&D General Admission ---
General Admit Datetime Report Generated by CPN: 11/15/2016 06:00 INFORMATION Patient Age: 25 (12/18/2013 11:58:QS system process) EDC: 11/04/2016 00:00 (09/26/2016 15:03:ALYCIA Chambers) : 5 (09/26/2016 15:03:ALYCIA Chambers) Para: 4 (11/14/2016 14:39:Nelida Summers RN) Term: 2 (09/26/2016 15:03:ALYCIA Chambers) : 1 (09/26/2016 15:03:ALYCIA Chambers) Spontaneous Abortions: 1 (09/26/2016 15:03:ALYCIA Chambers) Induced Abortions: 0 (09/26/2016 15:03:ALYCIA Chambers) Livin (09/26/2016 15:03:ALYCIA Chambers) Cesareans: 0 (09/26/2016 15:03:Nida Bellavance, RNC) VBACs: 0 (09/26/2016 15:03:Nida Bellavance, RNC) Ectopic: 0 (09/26/2016 15:03:Nida Bellavance, RNC) Multiple Births: 0 (09/26/2016 15:03:Nida Bellavance, RNC) Baby, Number in Womb: 0 (11/14/2016 14:39:Nelida Summers RN) CARE Primary Toy Maker: [facility] (09/26/2016 15:03:Nida Bellavance, RNC) Month of 1st Visit: may (09/26/2016 15:03:Nida Bellavance, RNC) Adequate Care: No (09/26/2016 15:03:Nida Bellavance, RNC) Height (in): 67 (11/14/2016 12:35:QS system process) ALLERGIES Medication Allergy: No (09/26/2016 15:03:Nida Yamilethnce, RNC) Medication Allergies: shrimp (11/13/2016) (11/13/2016 23:10:QS system process) Latex Allergy: No Latex Allergies (09/26/2016 15:03:Nida Bellavance, RNC) Food Allergies: shellfish (09/26/2016 15:03:Nida Bellavance, RNC) Environmental Allergies: no (09/26/2016 15:03:Nida Bellavance, RNC) COMMUNICATION Primary Language: Mexican (09/26/2016 15:03:Nida Bellavance, RNC) Medical Tx Preferred Language: Mexican (09/26/2016 15:03:Nida Bellavance, RNC) Mexican Communication Ability: Understands verbal communication (09/26/2016 15:03:Nida Bellavance, RNC) Communication Barrier(s): None (09/26/2016 15:03:Nida Bellavance, RNC) DEMOGRAPHICS Address: [address] [place] [id number] (09/26/2016 14:49:QS system process) Zipcode: [address] (12/18/2015 11:58:QS system process) Home (10/09/2016 19:55:QS system process) Work (11/13/2016 21:15:QS system process) SSN: [id number] (12/18/2015 11:58:QS system process) Next of Kin Name: YUNIER MASON (12/18/2015 11:58:QS system process) Next of Kin (12/18/2015 11:58:QS system process) Next of Kin Relationship: MO (12/18/2015 11:58:QS system process) Date of : 1990 (12/18/2015 11:58:QS system process) Marital Status: Single (12/18/2015 11:58:QS system process) Sex: Female (12/18/2015 11:58:QS system process) Race: (12/18/2015 11:58:QS system process) Ethnicity: Non- or (12/18/2015 11:58:QS system process) Congregation: None (12/18/2015 11:58:QS system process) DRUG AND ALCOHOL USE Alcohol: No (09/26/2016 15:03:Candis Nagy RN) Cigarettes: Never Smoker. [id number] (09/26/2016 15:03:Candis Nagy RN) Marijuana: No (09/26/2016 15:03:Candis Nagy RN) Cocaine: No (09/26/2016 15:03:Candis Nagy RN) Other Illicit Drugs: No (09/26/2016 15:03:Candis Nagy RN) VACCINE HISTORY Influenza Vaccine: Yes (09/26/2016 15:03:Candis Nagy RN) Pneumococcal Vaccine: No (09/26/2016 15:03:Candis Nagy RN) Tetanus Vaccine: No (09/26/2016 15:03:Candis Nagy RN) Tdap Vaccine: No (09/26/2016 15:03:Candis Nagy RN) Hepatitis B Vaccine: No (09/26/2016 15:03:Candis Nagy RN) Coach Wirer: [facility] (09/26/2016 15:03:Candis Nagy RN) Feeding Preference: Formula (09/26/2016 15:03:Lilli Menezes RN) Benefit of Breast Feed Discussed: Yes (09/26/2016 15:03:Candis Nagy RN) Circumcision: N/A (09/26/2016 15:03:Candis Nagy RN) Classes Attended: No (09/26/2016 15:03:Candis Nagy RN) Tubal Ligation: No (09/26/2016 15:03:Candis Nagy RN) Tubal Authorization Signed: N/A (09/26/2016 15:03:Candis Nagy RN) Consent: N/A (09/26/2016 15:03:Candis Nagy RN) Consent Signed: N/A (09/26/2016 15:03:Candis Nagy RN) Pain Management Plans: None (09/26/2016 15:03:Candis Nagy RN) Plans for Labor and Delivery: None (09/26/2016 15:03:Candis Nagy RN) Support Person: Yunier Mason (09/26/2016 15:03:Candis Nagy RN) Support Person Relationship: Mother (09/26/2016 15:03:Candis Nagy RN) Cultural/Spritual Practice: No (09/26/2016 15:03:Candis Nagy RN) Spir/Cult Dietary Needs: No (09/26/2016 15:03:Candis Nagy RN) LIVING SITUATION/DISCHARGE PLAN Living Arrangements: Apartment (09/26/2016 15:03:Candis Nagy RN) Adequate Access to:: Electric; Heat; Refrigeration; Plumbing/Running water; Phone; Transportation (09/26/2016 15:03:Candis Nagy RN) WIC Program: Yes (09/26/2016 15:03:Candis Nagy RN) Discharge Supervisor Insecticide Person: Yunier Mason (09/26/2016 15:03:Candis Nagy RN) Person to Help after Discharge: Yunier Mason (09/26/2016 15:03:Candis Nagy RN) Currently Using Commun [employer]: Yes (09/26/2016 15:03:Candis Nagy RN) Outside Agency/Noise Abatement Engineer: Yes (09/26/2016 15:03:Candis Nagy RN) Car Seat for Discharge: Yes (09/26/2016 15:03:Candis Nagy RN) Adoption Requested: No (09/26/2016 15:03:Candis Nagy RN) Pt Contact w/infant Post : N/A (09/26/2016 15:03:Candis Nagy RN) LABS Blood Type: O Positive (09/26/2016 15:03:Candis Nagy RN) Antibody Screen: Negative (09/26/2016 15:03:Siri Watson RN) Rho(G) this : Not Applicable (09/26/2016 15:03:Siri Watson RN) Hemoglobin: 11.2 L (11/14/2016 10:39:QS system process) Hematocrit: 35.3 L (11/14/2016 10:39:QS system process) MCV: 72 L (11/14/2016 10:39:QS system process) Group Beta Strep: Unknown (09/26/2016 15:03:Siri Watson RN) RPR/VDRL: Nonreactive (09/26/2016 15:03:Siri Watson RN) HIV Results: Negative (10/09/2016 20:52:Siri Watson RN) Hepatitis B: Negative (09/26/2016 15:03:Siri Watson RN) Rubella: Immune (09/26/2016 15:03:Candis Nagy RN) Varicella: Non Susceptible (09/26/2016 15:03:Siri Watson RN) OB/PREVIOUS HISTORY 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; NST; CHARGE NURSE (09/26/2016 15:03:Candis Nagy RN) Current Procedures: Ultrasound; NST (09/26/2016 15:03:Candis Nagy RN) History of Previous : No (09/26/2016 15:03:Candis Nagy RN) History of Gestational Diabetes: No (09/26/2016 15:03:Candis Nagy RN) History of PIH: Yes (09/26/2016 15:03:Candis Nagy RN) History of Incompetent Cervix: Yes (09/26/2016 15:03:Candis Nagy RN) History of Placenta Previa/Abrup: No (09/26/2016 15:03:Candis Nagy RN) History of Macrosomia: No (09/26/2016 15:03:Candis Nagy RN) History of IUGR: No (09/26/2016 15:03:Candis Nagy RN) History of Hemorrhage: No (09/26/2016 15:03:Candis Nagy RN) History of Loss/Stillborn: No (09/26/2016 15:03:Candis Nagy RN) History of : No (09/26/2016 15:03:Candis Nagy RN) History of D (Rh) Sensitization: No (09/26/2016 15:03:Candis Nagy RN) History Recurrent Loss/Stillborn: No (09/26/2016 15:03:Candis Nagy RN) History Depression/PP Depression: Yes (09/26/2016 15:03:Candis Nagy RN) History of Uterine Anomaly/BONI: No (09/26/2016 15:03:Candis Nagy RN) History of Infertility: No (09/26/2016 15:03:Candis Nagy RN) History of ART Treatment: No (09/26/2016 15:03:Candis Nagy RN) History of BONI: No (09/26/2016 15:03:Candis Nagy RN) Comments Obstetrical History: G1 SAB G2 01/15/2013, NVD, girl 6lb 5oz 37.2 weeks G3 04/08/2014, NVD, girl 6lbs 2oz 38.2 weeks G4 10/2015, NVD, girl 5lbs 35-36 weeks (09/26/2016 15:03:Candis Nagy RN) MEDICAL HISTORY Med Hx Diabetes: No (09/26/2016 15:03:Candis Nagy RN) Med Hx Hypertension: No (09/26/2016 15:03:Candis Nagy RN) Med Hx Heart Disease: No (09/26/2016 15:03:Candis Nagy RN) Med Hx Autoimmune Disorder: No (09/26/2016 15:03:Candis Nagy RN) Med Hx Kidney Disease/UTI: No (09/26/2016 15:03:Candis Nagy RN) Med Hx Neurologic/Epilepsy: No (09/26/2016 15:03:Candis Nagy RN) Med Hx Psychiatric Disorders: No (09/26/2016 15:03:Candis Nagy RN) Med Hx Hepatitis/Liver Disease: No (09/26/2016 15:03:Candis Nagy RN) Med Hx Varicosities/Phlebitis: Yes (09/26/2016 15:03:Candis Nagy RN) Med Hx Thyroid Dysfunction: No (09/26/2016 15:03:Candis Nagy RN) Med Hx Trauma/Violence: No (09/26/2016 15:03:Candis Nagy RN) Med Hx Blood Transfusion: No (09/26/2016 15:03:Candis Nagy RN) Med Hx Pulmonary (Asthma,TB): Yes (09/26/2016 15:03:Candis Nagy RN) Med Hx Breast: No (09/26/2016 15:03:Candis Nagy RN) Med Hx PEDIATRIC UROLOGIST Surgery: No (09/26/2016 15:03:Candis Nagy RN) Med Hx Hospitalization/Surgery: No (09/26/2016 15:03:Candis Nagy RN) Med Hx Anesthetic Complications: No (09/26/2016 15:03:Candis Nagy RN) Med Hx Abnormal Pap Smear: No (09/26/2016 15:03:Candis Nagy RN) Other Medical Diseases: No (09/26/2016 15:03:Candis Nagy RN) Med Hx Significant Family Hx: No (09/26/2016 15:03:Candis Nagy RN) INFECTIOUS HISTORY Inf Hx Gonorrhea: No (09/26/2016 15:03:Candis Nagy RN) Inf Hx Chlamydia: No (09/26/2016 15:03:Candis Nagy RN) Inf Hx Syphilis: No (09/26/2016 15:03:Candis Nagy RN) Inf Hx HIV/AIDS: No (09/26/2016 15:03:Candis Nagy RN) Inf Hx Human Papilloma Virus: No (09/26/2016 15:03:Candis Nagy RN) Inf Hx Pt/Partner Genital Herpes: No (09/26/2016 15:03:Candis Nagy RN) Inf Hx Tuberculosis/Exposure: No (09/26/2016 15:03:Candis Nagy RN) Inf Hx Hepatitis B,C: No (09/26/2016 15:03:Candis Nagy RN) Inf Hx Rash or Viral Illness: No (09/26/2016 15:03:Candis Nagy RN) GENETIC HISTORY Gen Hx Age >=35 at [place]: No (09/26/2016 15:03:Candis Nagy RN) Gen Hx Thalassemia: No (09/26/2016 15:03:Candis Nagy RN) Gen Hx Congenital Heart Defect: No (09/26/2016 15:03:Candis Nagy RN) Gen Hx Neural Tube Defect: No (09/26/2016 15:03:Candis Nagy RN) Gen Hx Down's Syndrome: No (09/26/2016 15:03:Candis Nagy RN) Gen Hx Scott-Sachs: No (09/26/2016 15:03:Candis Nagy RN) Gen Hx Casey: No (09/26/2016 15:03:Candis Nagy RN) Gen Hx Familial Dysautonomia: No (09/26/2016 15:03:Candis Nagy RN) Gen Hx Sickle Cell Disease/Trait: No (09/26/2016 15:03:Candis Nagy RN) Gen Hx Hemophilia/Blood Disorder: No (09/26/2016 15:03:Candis Nagy RN) Gen Hx Muscular Dystrophy: No (09/26/2016 15:03:Candis Nagy RN) Gen Hx Cystic Fibrosis: No (09/26/2016 15:03:Candis Nagy RN) Gen Hx Huntingtons Chorea: No (09/26/2016 15:03:Candis Nagy RN) Gen Hx Mental Retardation/Autism: No (09/26/2016 15:03:Candis Nagy RN) Gen Hx Tested for Fragile X: No (09/26/2016 15:03:Candis Nagy RN) Gen Hx Other Inher/Chromosomal: No (09/26/2016 15:03:Candis Nagy RN) Gen Hx Maternal Metabolic DO: No (09/26/2016 15:03:Candis Nagy RN) Gen Hx Pt Father or FOB Defect: No (09/26/2016 15:03:Candis Nagy RN) Gen Hx Other Genetic History: No (09/26/2016 15:03:Candis Nagy RN) Gen Hx Drugs/Meds since LMP: No (09/26/2016 15:03:Candis Nagy RN)
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
[2016-11-15] MEDS ORDERED: DOCUSATE SODIUM 100 MG CAPSULE PO SCH (10:00)
[2016-11-15] MEDS ORDERED: NIFEDIPINE 30 MG TAB.ER.24 PO SCH (10:00)
== END 2016-11-14 14:30 | disposition home or self-care (01) ==
LOC: ER 14:48 → EH 21:14 → UNDOADMIN 21:14 → EH 22:50 → INTOOBSV 22:50 → LR 23:05 → EH 23:05 → UNDODISIN 11-14 14:30
PROVIDERS: ADMIT Obstetrics & Gynecology; ATTEND Obstetrics & Gynecology
DX: O14.95 Unspecified pre-eclampsia, complicating the puerperium (principal); O72.3 Postpartum coagulation defects; D47.3 Essential (hemorrhagic) thrombocythemia; Z86.718 Personal history of other venous thrombosis and embolism
CPT/HCPCS: 99291; 36415 ×2; 83615 ×2; 83735; 84550 ×2; 85025 ×2; 80053 ×2; 81001; 71020; G0378 ×2; J3475; J3490 ×2; J1650

== ENCOUNTER 2017-02-09 09:45 | Emergency (ER) | payer MEDICAID ==
--- NOTE | 2017-02-09 11:05 | ER Document Report ---
ED General - General Chief Complaint: Leg Pain Stated Complaint: LEFT LEG PAIN Time Seen by Provider: 02/09/17 11:04 Mode of Arrival: Ambulatory Information source: Patient Notes: Patient's 26-year-old -[place] female who presents with 2 week history of constant left leg pain. She describes the pain as cramping and throbbing. She states and it starts in the middle of her posterior thigh and radiates down to her calf. She states the pain is relieved mildly with elevation of the leg. She has history of DVT 2 and has been on Lovenox previously. Recently had a baby 2 months ago and is using the IUD as contraception. She is a smoker. She states that she has also tried Motrin which provides minimal relief. She denies any redness, warmth to her extremity, swelling to her extremity, chest pain or shortness of breath. TRAVEL OUTSIDE OF THE [place] IN LAST 30 DAYS: No - Related Data Allergies/Adverse Reactions: shrimp Allergy (Verified 02/09/17 09:49) shrimp Allergy (Uncoded 02/09/17 09:49) Past Medical History - General Information source: Patient - Social History Smoking Status: Current Every Day Smoker Family History: Reviewed & Not Pertinent Patient has suicidal ideation: No Patient has homicidal ideation: No - Past Medical History Cardiac Medical History: Reports: Hx DVT Pulmonary Medical History: Reports: Hx Asthma, Hx Bronchitis Renal/ Medical History: Reports: Hx Kidney Stones. Denies: Hx Peritoneal Dialysis - Immunizations Hx Diphtheria, Pertussis, Tetanus Vaccination: Yes Hx Pneumococcal Vaccination: 04/10/14 Review of Systems - Review of Systems Constitutional: See HPI EENT: No symptoms reported Cardiovascular: No symptoms reported Respiratory: No symptoms reported Gastrointestinal: No symptoms reported Genitourinary: No symptoms reported Female Genitourinary: No symptoms reported Musculoskeletal: See HPI Skin: No symptoms reported Hematologic/Lymphatic: No symptoms reported Neurological/Psychological: No symptoms reported Physical Exam - Vital signs Vitals: Temp Pulse Resp BP Pulse Ox 97.5 F 87 14 139/84 H 98 02/09/17 09:50 02/09/17 09:50 02/09/17 09:50 02/09/17 09:50 02/09/17 09:50 - Notes Notes: PHYSICAL EXAM: CONSTITUTIONAL: Alert and oriented, well-appearing and in no acute distress. HENT: Normocephalic, atraumatic. Trachea midline. Uvula midline. Moist mucous membranes. EYES: Pupils equal round and reactive to light, EOM intact. Sclera anicteric, conjunctiva are normal. No entrapment. NECK: supple without lymphadenopathy. No cervical midline tenderness or paraspinous muscle spasms. No step-offs or deformities. ROM intact. HEART: Regular rate and rhythm without murmurs. LUNGS: CTAB and equal. No wheezes, rales or rhonchi. BACK: nontender, no paraspinous spasm, 5+/5 strengths, DTRs 2+, SLR -. EXTREMITIES: left leg - tender to palpation to posterior mid thigh, popliteal region and posterior left calf. No palpable cords or streaking. No warmth, erythema, ecchymosis or deformity. Minor muscle spasms noted. Normal range of motion, no pitting edema. No cyanosis. Cap Refill <3 seconds. Normal dorsiflexion and plantar. distal pulse intact. NEURO: Cranial nerves grossly intact. Normal sensory/motor exams. PSYCH: Normal mood, normal affect. SKIN: Warm and dry. Normal turgor. No rashes or lesions noted. Course - Re-evaluation Re-evalutation: 02/09/17 13:32 Patient seen and examined. Left leg - tender to palpation to posterior mid thigh , popliteal region and posterior left calf. No palpable cords or streaking. No warmth, erythema, ecchymosis or deformity. Minor muscle spasms noted. Normal range of motion, no pitting edema. No cyanosis. Cap Refill <3 seconds. Normal dorsiflexion and plantar. Distal pulse intact. Doppler of LLE - negative for DVT, SVT. Etiology most likely muscle spasms, will treat with muscle relaxers/anti-inflammatories. Discussed results with patient. Will discharge this prescriptions for muscle relaxers and anti- inflammatories advised to follow-up with primary care doctor. At this time, will discharge with return precautions and follow-up recommendations. Verbal discharge instructions given at the bedside and opportunity for questions given. Medication warnings reviewed. Patient is in agreement with this plan and has verbalized understanding of return precautions and the need for primary care follow-up in the next 24-72 hours. - Vital Signs Vital signs: Temp Pulse Resp BP Pulse Ox 97.5 F 87 14 139/84 H 98 02/09/17 09:50 02/09/17 09:50 02/09/17 09:50 02/09/17 09:50 02/09/17 09:50 - Diagnostic Test Radiology reviewed: Image reviewed, Reports reviewed Discharge - Discharge Clinical Impression: Muscle cramps, Left leg pain Condition: Stable Disposition: HOME, SELF-CARE Additional Instructions: We have ruled out using any blood clots in your leg by a ultrasound. Your pain most likely is coming from muscle cramps. We'll give you prescriptions to treat this. We recommend that you increase your fluid intake. Myalagia (Muscle Pain) Myalgia is pain in the muscles. We use the word myalgia to describe muscle pain where there's no history of injury, no known muscle disease, and the muscles are normal to examination. Myalgias can be a symptom of an acute illness , such as influenza, hepatitis, or any viral illness, especially with fever. Sometimes the muscle pain comes before any other symptoms. Myalgia can also be an early symptom of inflammatory muscle disease, such as lupus. If myalgia is accompanied by an acute illness that explains the muscle pain , then no further testing needs to be done. When there's no clear reason for the pain, tests may be done to see if there's an inflammatory or other disease of the muscles. The usual treatment for myalgias is anti-inflammatory medication, such as ibuprofen. Muscle aches may be soothed with a heating pad or hot compress. If muscles remain painful for more than a few days, you'll need testing and followup. Return if a muscle becomes swollen, red, or severely painful. Anti-Inflammatory Medication You have received a prescription for an antiinflammatory agent. This is an excellent, safe drug for pain control. In addition, it has potent antiinflammatory effects which are beneficial, especially in the treatment of injuries, arthritis, or tendonitis. It's best to take this medicine with food. Persons with ulcer disease or allergy to aspirin should notify their physician of this before taking this drug. Take the medication exactly as prescribed. Don't take additional doses unless instructed to do so by your doctor. If you develop wheezing, shortness of breath, hives, faintness, stomach pain, vomiting, or dark black stools, return for re-evaluation at once. Muscle Relaxers Muscle relaxing medications are usually prescribed for acute muscle spasm or injury to the neck and back. They are often combined with antiinflammatory pain medication for increased relief. You may stop the muscle relaxer when the pain and stiffness have improved. Start the medication again if spasms recur. Muscle relaxers may cause drowsiness, especially with the first dose. Do not operate machinery or drive while under the effects of the medication. Most muscle relaxers last up to 24 hours. Do not combine the medication with alcohol. FOLLOW-UP CARE: If you have been referred to a physician for follow-up care, call the physician s office for an appointment as you were instructed or within the next two days. If you experience worsening or a significant change in your symptoms, notify the physician immediately or return to the Emergency Department at any time for re-evaluation. Prescriptions: Ketorolac Tromethamine [Toradol 10 mg Tablet] 10 mg PO Q6HP PRN #20 tablet PRN Reason: Methocarbamol [Robaxin 500 mg Tablet] 500 mg PO TID #20 tablet Forms: Elevated Blood Pressure, Return to Work Referrals: ELSI RIVERA PA-C [Primary Care Provider] - Follow up in 3-5 days
[2017-02-10 04:28] VITALS: BP 129/90
== END 2017-02-09 13:42 | disposition home or self-care (01) ==
LOC: ER 09:45
DX: M79.605 Pain in left leg (principal); R25.2 Cramp and spasm; F17.200 Nicotine dependence, unspecified, uncomplicated; Z86.718 Personal history of other venous thrombosis and embolism; Z97.5 Presence of (intrauterine) contraceptive device; Z91.013 Allergy to seafood
CPT/HCPCS: 93971; 99283

== ENCOUNTER 2017-05-10 21:00 | Emergency (ER) | payer MEDICAID | END 2017-05-10 21:44 | disposition left against medical advice (07) | LOC: ER 21:00 | DX: Z53.21 Procedure and treatment not carried out due to patient leaving prior to being seen by health care provider (principal) ==

== ENCOUNTER 2017-12-09 10:08 | Emergency (ER) | payer SELFPAY ==
--- NOTE | 2017-12-09 10:20 | ER Document Report ---
ED Medical Screen (RME) - General Chief Complaint: Vaginal Bleeding Stated Complaint: ABDOMINAL PAIN Time Seen by Provider: 12/09/17 10:18 Mode of Arrival: Ambulatory Information source: Patient TRAVEL OUTSIDE OF THE [place] IN LAST 30 DAYS: No - HPI Patient complains to provider of: vaginal bleeding Onset: Other - pt. has been having intermittent vaginal spotting and bleeding for the past few weeks. This am, passed large clots. status unknown - Related Data Allergies/Adverse Reactions: shrimp Allergy (Verified 12/09/17 10:10) shrimp Allergy (Uncoded 12/09/17 10:10) Past Medical History - Past Medical History Cardiac Medical History: Reports: Hx DVT Pulmonary Medical History: Reports: Hx Asthma, Hx Bronchitis Renal/ Medical History: Reports: Hx Kidney Stones. Denies: Hx Peritoneal Dialysis - Immunizations Hx Diphtheria, Pertussis, Tetanus Vaccination: Yes Physical Exam - Vital signs Vitals: Temp Pulse Resp BP Pulse Ox 97.9 F 90 16 127/79 H 99 12/09/17 10:16 12/09/17 10:16 12/09/17 10:16 12/09/17 10:16 12/09/17 10:16 Course - Vital Signs Vital signs: Temp Pulse Resp BP Pulse Ox 97.9 F 90 16 127/79 H 99 12/09/17 10:16 12/09/17 10:16 12/09/17 10:16 12/09/17 10:16 12/09/17 10:16
--- NOTE | 2017-12-09 10:42 | ER Document Report ---
ED General - General Chief Complaint: Vaginal Bleeding Stated Complaint: ABDOMINAL PAIN Time Seen by Provider: 12/09/17 10:18 Mode of Arrival: Ambulatory Information source: Patient Notes: 27-year-old female presents with complaint of vaginal bleeding. Patient states that she has been experiencing heavy vaginal bleeding for 2 weeks. Patient states that she has been passing large clots daily. She has associated abdominal cramping that she describes as intermittent and relieved with Midol. She is also complaining of intermittent headache and dizziness. She denies history of heavy menstrual bleeding. She does not currently believe that she is . She has an IUD in place.Her last normal period was October 2017. She is sexually active with her .She denies any foreign body, rough sexual intercourse. TRAVEL OUTSIDE OF THE [place] IN LAST 30 DAYS: No - Related Data Allergies/Adverse Reactions: iodine Allergy (Verified 12/09/17 11:28) shrimp Allergy (Verified 12/09/17 10:20) shrimp Allergy (Uncoded 12/09/17 10:20) Past Medical History - General Information source: Patient Last Menstrual Period: oct - Social History Smoking Status: Current Every Day Smoker Frequency of alcohol use: None Drug Abuse: None Family History: Reviewed & Not Pertinent Patient has suicidal ideation: No Patient has homicidal ideation: No - Past Medical History Cardiac Medical History: Reports: Hx DVT Pulmonary Medical History: Reports: Hx Asthma, Hx Bronchitis Renal/ Medical History: Reports: Hx Kidney Stones. Denies: Hx Peritoneal Dialysis - Immunizations Hx Diphtheria, Pertussis, Tetanus Vaccination: Yes Hx Pneumococcal Vaccination: 04/10/14 Review of Systems - Review of Systems Constitutional: See HPI. denies: Fever, Weakness EENT: No symptoms reported Gastrointestinal: Abdominal pain Female Genitourinary: Vaginal bleeding Musculoskeletal: No symptoms reported Skin: No symptoms reported Physical Exam - Vital signs Vitals: Temp Pulse Resp BP Pulse Ox 97.9 F 90 16 127/79 H 99 12/09/17 10:16 12/09/17 10:16 12/09/17 10:16 12/09/17 10:16 12/09/17 10:16 - General General appearance: Appears well, Alert - HEENT Head: Normocephalic, Atraumatic Eyes: Normal Conjunctiva: Normal Pupils: PERRL - Respiratory Respiratory status: No respiratory distress Chest status: Nontender Breath sounds: Normal Chest palpation: Normal - Cardiovascular Rhythm: Regular Heart sounds: Normal auscultation Murmur: No Pulses: Normal: Radial, Dorsalis pedis Normal capillary refill: Yes - Genitourinary Speculum exam: Cervix closed. No: Vaginal discharge, Vaginal lacerations Vaginal bleeding: Moderate Bimanuel exam: Normal Course - Re-evaluation Re-evalutation: 12/09/17 11:57 Discuss positive results with patient. Patient c/o pain. will give dilaudid IM. US 1st trimester ordered. 12/09/17 14:54 Ultrasound was reviewed and showed an IUP with a heart rate of 127 and a subchorionic hemorrhage. I spoke to Dr. Carroll PLAYGROUND MONITOR on-call who recommends follow-up in the office in 1 week.I did discuss the findings of the ultrasound with the patient as well as the potential risk for miscarriage. 12/09/17 15:01 27-year-old female presents with complaint of 2 weeks of vaginal bleeding. Patient initially unsure if she is secondary to IUD.Upon arrival vitals reviewed and within normal limits. Patient does not appear toxic or dehydrated. She is in no acute distress. CBC shows mild anemia and is without leukocytosis. Patient's beta quant is 38,000. Transvaginal ultrasound was performed and showed an IUP with a heart rate of 127 and a small subchorionic hemorrhage.Patient remained stable throughout her ED course. Symptoms that should prompt her return were discussed and include worsening abdominal pain, passing of tissue, fever.Patient was advised to follow-up with Dr. Carroll PLAYGROUND MONITOR in 1 week. - Vital Signs Vital signs: Temp Pulse Resp BP Pulse Ox 97.9 F 90 16 127/79 H 99 12/09/17 10:16 12/09/17 10:16 12/09/17 10:16 12/09/17 10:16 12/09/17 10:16 - Laboratory Result Diagrams: 12/09/17 10:30 12/09/17 10:30 Laboratory results interpreted by me: 12/09/17 12/09/17 12/09/17 10:30 10:30 10:30 Hgb 10.8 L Hct 34.9 L MCV 75 L MCH 23.3 L MCHC 31.0 L RDW 14.4 H Seg Neutrophils % 38.0 L Lymphocytes % 50.3 H Alkaline Phosphatase 36 L Beta HCG, Quant 93395.00 H Urine Urobilinogen Urine Ascorbic Acid Urine HCG, Qual 12/09/17 11:13 Hgb Hct MCV MCH MCHC RDW Seg Neutrophils % Lymphocytes % Alkaline Phosphatase Beta HCG, Quant Urine Urobilinogen 2.0 H Urine Ascorbic Acid 20 H Urine HCG, Qual POSITIVE H Discharge - Discharge Clinical Impression: Vaginal bleeding during , Threatened in early Condition: Good Disposition: HOME, SELF-CARE Instructions: Bleeding During Early ([facility]), Threatened Miscarriage ( [facility]) Referrals: VIKKI CARROLL MD [ACTIVE STAFF] - Follow up in 1 week
[2017-12-09 10:50] LABS: ABSOLUTE EOSINOPHILS # (AUTO) 0.2 10^3/uL (0.0-0.6); ABSOLUTE LYMPHOCYTES (AUTO) 3.1 10^3/uL (0.5-4.7); ABSOLUTE MONOCYTES (AUTO) 0.5 10^3/uL (0.1-1.4); ABSOLUTE NEUT (AUTO) 2.3 10^3/uL (1.7-8.2); BASOPHILS % (AUTO) 0.8 % (0-2); EOSINOPHILS % (AUTO) 3.1 % (0-6); HEMATOCRIT 34.9 % (36.0-47.0); HEMOGLOBIN 10.8 g/dL (12.0-15.5); LYMPHOCYTES % (AUTO) 50.3 % (13-45); MEAN CORPUSCULAR HEMOGLOBIN 23.3 pg (27.0-33.4); MEAN CORPUSCULAR VOLUME 75 fl (80-97); MONOCYTES % (AUTO) 7.8 % (3-13); PLATELET COUNT 352 10^3/uL (150-450); RED BLOOD COUNT 4.63 10^6/uL (3.72-5.28); RED CELL DISTRIBUTION WIDTH 14.4 % (11.5-14.0); TOTAL CELLS COUNTED % (AUTO) 100 %; WHITE BLOOD COUNT 6.1 10^3/uL (4.0-10.5)
[2017-12-09 11:06] LABS: ALANINE AMINOTRANSFERASE 21 U/L (9-52); ALBUMIN 4.5 g/dL (3.5-5.0); ALKALINE PHOSPHATASE 36 U/L (38-126); ANION GAP 10 (5-19); ASPARTATE AMINO TRANSFERASE 18 U/L (14-36); BILIRUBIN,DIRECT 0.1 mg/dL (0.0-0.4); BILIRUBIN,TOTAL 1.1 mg/dL (0.2-1.3); BLOOD UREA NITROGEN 9 mg/dL (7-20); CALCIUM 10.2 mg/dL (8.4-10.2); CARBON DIOXIDE 25 mmol/L (22-30); CHLORIDE 103 mmol/L (98-107); GLUCOSE 87 mg/dL (75-110); POTASSIUM 4.2 mmol/L (3.6-5.0); SODIUM 138.1 mmol/L (137-145); TOTAL PROTEIN 7.4 g/dL (6.3-8.2)
[2017-12-09] MEDS ORDERED: IBUPROFEN 600 MG TABLET PO ONE (11:15)
[2017-12-09 11:49] LABS: AMORPHOUS SEDIMENT,URINE TRACE /HPF; APPEARANCE,URINE CLOUDY; BILIRUBIN,URINE NEGATIVE (NEGATIVE); COLOR,URINE YELLOW; GLUCOSE, URINE NEGATIVE (NEGATIVE); KETONES,URINE NEGATIVE (NEGATIVE); LEUKOCYTE ESTERASE,URINE NEGATIVE (NEGATIVE); NITRITE,URINE NEGATIVE (NEGATIVE); PROTEIN,URINE NEGATIVE (NEGATIVE); URINE SPECIFIC GRAVITY 1.019
[2017-12-09] MEDS ORDERED: HYDROMORPHONE HCL INJ/PF 2 MG/ML AMPULE IM ONE (11:57)
[2017-12-09 12:16] LABS: BACTERIA (WET MOUNT) 4+ BACTERIA SEEN; RBCS (WET MOUNT) 4+ RBCS SEEN; T.VAGINALIS (WET MOUNT) NO TRICHOMONAS SEEN; WBCS (WET MOUNT) FEW WBCS SEEN; YEAST (WET MOUNT) NO YEAST SEEN
[2017-12-09 12:57] LABS: CHLAM PCR NOT DETECTED (NOT DETECT); GON PCR NOT DETECTED (NOT DETECT)
--- NOTE | 2017-12-09 14:14 | RADIOLOGY REPORT (SQ) ---
EXAM DESCRIPTION: U/S OB TRANSVAG W/DOPPLER COMPLETED DATE/TIME: 12/09/2017 2:06 pm REASON FOR STUDY: bleeding in COMPARISON: None. TECHNIQUE: Transvaginal static and realtime grayscale images acquired of the pelvis. Additional yahir cted spectral and color Doppler images recorded. All images stored on PACs. [id number] LIMITATIONS: None. FINDINGS: FETUS: Living intrauterine . EGA: 7 weeks 0 days MANUELITO: 07/28/2018 FHR: 127 beats per minute. SUBCHORIONIC BLEED: Yes. SIZE OF BLEED: 2.0 x 1.5 x 0.9 cm UTERUS: No masses. No anomalies. CERVICAL LENGTH: 3.0 cm Closed. RIGHT ADNEXA: Normal ovary with normal vascular flow. No adnexal free fluid. No adnexal masses. LEFT ADNEXA: Normal ovary with normal vascular flow. No adnexal free fluid. No adnexal masses. FREE FLUID: None. OTHER: No other significant finding. IMPRESSION: LIVING INTRAUTERINE . EGA 7 WEEKS 0 DAYS. SMALL SUBCHORIONIC HEMATOMA. Trimester of : First - 0 to 13 weeks. TECHNICAL DOCUMENTATION: JOB ID: [id number] [employer]- All Rights Reserved Reading location - IP/workstation name: [email or web address]
[2017-12-09 15:14] VITALS: BP 125/70
== END 2017-12-09 15:14 | disposition home or self-care (01) ==
LOC: ER 10:08
DX: O20.0 Threatened abortion (principal); O26.891 Other specified pregnancy related conditions, first trimester; R51 Headache; R42 Dizziness and giddiness; R10.9 Unspecified abdominal pain; O99.011 Anemia complicating pregnancy, first trimester; D64.9 Anemia, unspecified; O99.331 Smoking (tobacco) complicating pregnancy, first trimester; O99.511 Diseases of the respiratory system complicating pregnancy, first trimester; J45.909 Unspecified asthma, uncomplicated; Z3A.00 Weeks of gestation of pregnancy not specified; Z97.5 Presence of (intrauterine) contraceptive device; Z91.013 Allergy to seafood
CPT/HCPCS: 99284; 96372; 86900; 86901; 36415; 87210; 84702; 85025; 81025; 80053; 81001; 87491; 87591; 76817; 93976; J1170

== ENCOUNTER 2017-12-14 22:34 | Emergency (ER) | payer MEDICAID ==
[2017-12-15] MEDS ORDERED: NORMAL SALINE 1000 ML 1,000 ML IV ONE (00:07)
[2017-12-15] MEDS ORDERED: ACETAMINOPHEN 325 MG TABLET PO ONE (00:07)
[2017-12-15] MEDS ORDERED: ONDANSETRON HCL INJ/PF 4 MG/2 ML SDV IV ONE (00:07)
[2017-12-15] MEDS ORDERED: IPRATROPIUM/ALBUTEROL 0.5-2.5 MG/3 ML AMPUL NEB ONE (00:08)
--- NOTE | 2017-12-15 00:11 | ER Document Report ---
ED General - General Chief Complaint: Other Stated Complaint: FLU LIKE SYMPTOMS Time Seen by Provider: 12/15/17 00:02 Notes: Patient is a 27-year-old female, at 7 weeks 6 days gestation by first trimester ultrasound. She states that for the past 3 days she has had intermittent wheezing, cough, chills, she has vomited a couple of times, she is also had generalized abdominal pain and vaginal bleeding. She had an IUD removed several days ago by COMPLIANCE ATTORNEY, but tonight the bleeding increased. She denies passing out. She just quit smoking 2 weeks ago, she has asthma, she just ran out of her albuterol inhaler. TRAVEL OUTSIDE OF THE [place] IN LAST 30 DAYS: No - Related Data Allergies/Adverse Reactions: iodine Allergy (Verified 12/14/17 22:35) shrimp Allergy (Verified 12/14/17 22:35) shrimp Allergy (Uncoded 12/14/17 22:35) Past Medical History - General Information source: Patient - Social History Smoking Status: Former Smoker Drug Abuse: None Lives with: Family Family History: Reviewed & Not Pertinent - Past Medical History Cardiac Medical History: Reports: Hx DVT Pulmonary Medical History: Reports: Hx Asthma, Hx Bronchitis Renal/ Medical History: Reports: Hx Kidney Stones. Denies: Hx Peritoneal Dialysis - Immunizations Hx Diphtheria, Pertussis, Tetanus Vaccination: Yes Hx Pneumococcal Vaccination: 04/10/14 Review of Systems - Review of Systems Constitutional: See HPI EENT: No symptoms reported Cardiovascular: See HPI Respiratory: See HPI Gastrointestinal: See HPI Genitourinary: See HPI Female Genitourinary: See HPI Musculoskeletal: No symptoms reported Skin: No symptoms reported Hematologic/Lymphatic: No symptoms reported Neurological/Psychological: No symptoms reported Physical Exam - Vital signs Vitals: Temp Pulse Resp BP Pulse Ox 100.3 F 123 H 18 134/71 H 98 12/14/17 22:43 12/14/17 22:43 12/14/17 22:43 12/14/17 22:43 12/14/17 22:43 - General General appearance: Other - Patient with nonstop cough on initial evaluation - HEENT Head: Normocephalic, Atraumatic Eyes: Normal Conjunctiva: Normal Extraocular movements intact: Yes Eyelashes: Normal Pupils: PERRL Nasal: Normal Mouth/Lips: Normal Mucous membranes: Normal Pharynx: Normal Neck: Normal - Respiratory Respiratory status: No respiratory distress. No: Labored, Tachypnea Breath sounds: Nonproductive cough - Persistent cough, Wheezing - Faint expiratory wheezes, good clear lung sounds otherwise - Cardiovascular Rhythm: Regular, Tachycardia - Borderline on my exam Heart sounds: Normal auscultation, S1 appreciated, S2 appreciated Gallop: None auscultated Normal capillary refill: Yes - Abdominal Inspection: Normal Tenderness: Tender - Mild generalized abdominal tenderness, nonspecific, no guarding - Back Back: Normal, Nontender - Extremities General upper extremity: Normal inspection, Nontender, Normal strength, Normal temperature General lower extremity: Normal inspection, Nontender, Normal strength, Normal temperature. No: Edema - Neurological Neuro grossly intact: Yes Cognition: Normal Orientation: AAOx4 Union Coma Scale Eye Opening: Spontaneous Conner Coma Scale Verbal: Oriented Union Coma Scale Motor: Obeys Commands Union Coma Scale Total: 15 Speech: Normal Cranial nerves: Normal Cerebellar coordination: Normal Motor strength normal: LUE, RUE, LLE, RLE Additional motor exam normals: Equal rn hospice Sensory: Normal - Skin Skin Temperature: Warm Skin Moisture: Dry Skin Color: Normal Course - Re-evaluation Re-evalutation: Patient with intermittent discomfort with cramping, has mild generalized abdominal tenderness with no guarding. She has a persistent cough and mild expiratory wheeze, low-grade fever, no hypoxia, no tachypnea, no respiratory distress. After DuoNeb wheezing and cough both resolved. After IV fluids and Tylenol tachycardia resolved. Ultrasound showing karina-gestational hemorrhage concerning for threatened but currently there is a living IUP with no other complications. Patient not currently bleeding on exam, RhoGam not indicated. Patient feeling much better, discussed all results, suspect viral upper respiratory infection. I did discuss a chest x-ray but this was declined. Treating with azithromycin for coverage, treating symptoms to reduce coughing and reduce pressure on the bleed, discussed close follow-up and return precautions in detail, patient states satisfaction and agreement with plan. - Vital Signs Vital signs: Temp Pulse Resp BP Pulse Ox 100.3 F 123 H 17 123/69 94 12/14/17 22:43 12/14/17 22:43 12/15/17 03:01 12/15/17 03:01 12/15/17 03:01 - Laboratory Result Diagrams: 12/15/17 00:35 12/15/17 00:35 Laboratory results interpreted by me: 12/15/17 12/15/17 12/15/17 00:24 00:35 00:35 Hgb 11.2 L Hct 34.3 L MCV 74 L MCH 24.1 L RDW 14.3 H Seg Neutrophils % 83.4 H Lymphocytes % 7.5 L Absolute Neutrophils 8.5 H Sodium 135.7 L Carbon Dioxide 20 L Alkaline Phosphatase 37 L Beta HCG, Quant 88073.00 H Urine Ketones TRACE H Urine Blood MODERATE H Urine Ascorbic Acid 20 H Discharge - Discharge Clinical Impression: Cough, Wheezing, Vaginal bleeding affecting early Fever Qualifiers: Fever type: unspecified Qualified Code(s): R50.9 - Fever, unspecified Upper respiratory infection Qualifiers: URI type: unspecified URI Qualified Code(s): J06.9 - Acute upper respiratory infection, unspecified Condition: Stable Disposition: HOME, SELF-CARE Additional Instructions: Take Tylenol to keep fever down. Take azithromycin as prescribed. Take the syrup only if needed for cough. Use the inhaler as prescribed. The ultrasound shows a living in the uterus although there is a hemorrhage around the gestation which is most likely the reason for the pain and bleeding you are having. This is at risk for miscarriage, but time will tell. I recommend pelvic rest, no lifting/jumping/running, no sexual intercourse until cleared by COMPLIANCE ATTORNEY. Follow closely with COMPLIANCE ATTORNEY for additional evaluation and management. Return for any concerning or worsening symptoms including difficulty breathing, passing out, very heavy bleeding, severe pain, spiking fever, or any other concerning or worsening symptoms. Prescriptions: Hydrocodone Bit/Homatropine [Hycodan Syrup 5-1.5 mg/5 ml Ud Cup] 5 ml PO Q4HP PRN #120 ml PRN Reason: Albuterol Sulfate [Proair HFA Inhalation Aerosol 8.5 gm MDI] 2 puff IH Q4H PRN # 1 mdi PRN Reason: Azithromycin [Zithromax 250 mg Tablet] 250 mg PO ASDIR PRN #6 tablet PRN Reason:
[2017-12-15 01:01] LABS: ABSOLUTE BASOPHILS # (AUTO) 0.1 10^3/uL (0.0-0.2); ABSOLUTE EOSINOPHILS # (AUTO) 0.1 10^3/uL (0.0-0.6); ABSOLUTE LYMPHOCYTES (AUTO) 0.8 10^3/uL (0.5-4.7); ABSOLUTE MONOCYTES (AUTO) 0.8 10^3/uL (0.1-1.4); ABSOLUTE NEUT (AUTO) 8.5 10^3/uL (1.7-8.2); BASOPHILS % (AUTO) 0.6 % (0-2); EOSINOPHILS % (AUTO) 0.6 % (0-6); HEMATOCRIT 34.3 % (36.0-47.0); HEMOGLOBIN 11.2 g/dL (12.0-15.5); LYMPHOCYTES % (AUTO) 7.5 % (13-45); MEAN CORPUSCULAR HEMOGLOBIN 24.1 pg (27.0-33.4); MEAN CORPUSCULAR HGB CONC 32.6 g/dL (32.0-36.0); MEAN CORPUSCULAR VOLUME 74 fl (80-97); MONOCYTES % (AUTO) 7.9 % (3-13); PLATELET COUNT 317 10^3/uL (150-450); RED BLOOD COUNT 4.63 10^6/uL (3.72-5.28); RED CELL DISTRIBUTION WIDTH 14.3 % (11.5-14.0); SEGMENTED NEUTROPHILS % (AUTO) 83.4 % (42-78); TOTAL CELLS COUNTED % (AUTO) 100 %; WHITE BLOOD COUNT 10.2 10^3/uL (4.0-10.5)
[2017-12-15 01:06] LABS: ALANINE AMINOTRANSFERASE 26 U/L (9-52); ALBUMIN 4.5 g/dL (3.5-5.0); ALKALINE PHOSPHATASE 37 U/L (38-126); ANION GAP 13 (5-19); ASPARTATE AMINO TRANSFERASE 21 U/L (14-36); BILIRUBIN,DIRECT 0.4 mg/dL (0.0-0.4); BILIRUBIN,TOTAL 0.9 mg/dL (0.2-1.3); BLOOD UREA NITROGEN 8 mg/dL (7-20); CALCIUM 10.1 mg/dL (8.4-10.2); CARBON DIOXIDE 20 mmol/L (22-30); CHLORIDE 103 mmol/L (98-107); GLUCOSE 87 mg/dL (75-110); POTASSIUM 4.3 mmol/L (3.6-5.0); SODIUM 135.7 mmol/L (137-145); TOTAL PROTEIN 7.8 g/dL (6.3-8.2)
--- NOTE | 2017-12-15 01:35 | RADIOLOGY REPORT (SQ) ---
EXAM DESCRIPTION: U/S OB TRANSVAG W/DOPPLER CLINICAL HISTORY: 27 years, Female, heavier vaginal bleeding; recent IUD removal COMPARISON: 12/09/2017. TECHNIQUE: Transvaginal LIMITATIONS: None. FINDINGS: At-risk living intrauterine fetus measures 7w6d with MANUELITO of 07/28/18 based on crown-rump length of 1.46 cm. Cardiac activity is 171 bpm. There is a 1.9 x 1.0 x 1.2 cm subchorionic hematoma again seen compared with 2.0-cm on prior exam from December 09, 2017. Ovaries are not visualized. Cervical length is 2.5 cm. IMPRESSION: At-risk living intrauterine fetus measures 7w6d with 1.9 cm perigestational hemorrhage.
[2017-12-15] MEDS ORDERED: MORPHINE SULFATE 10 MG/ML INJ IV ONE (01:38)
[2017-12-15 01:54] LABS: APPEARANCE,URINE SLIGHTLY-CLOUDY; BILIRUBIN,URINE NEGATIVE (NEGATIVE); COLOR,URINE YELLOW; GLUCOSE, URINE NEGATIVE (NEGATIVE); KETONES,URINE TRACE mg/dL (NEGATIVE); LEUKOCYTE ESTERASE,URINE NEGATIVE (NEGATIVE); NITRITE,URINE NEGATIVE (NEGATIVE); PROTEIN,URINE NEGATIVE (NEGATIVE); URINE SPECIFIC GRAVITY 1.024; UROBILINOGEN,URINE NEGATIVE mg/dL (<2.0)
[2017-12-15] MEDS ORDERED: HYDROCODONE/ACETAMINOPHEN 5-325 MG (6 TAB/ER DISP) PO PRN (02:53)
[2017-12-15] MEDS ORDERED: ALBUTEROL SULFATE HFA (90 MCG/PUFF) 8 GM MDI (1 MDI/ER DISP) IH ONE (03:10)
[2017-12-15 03:16] VITALS: BP 123/69
== END 2017-12-15 03:37 | disposition home or self-care (01) ==
LOC: ER 22:34
DX: O99.511 Diseases of the respiratory system complicating pregnancy, first trimester (principal); J06.9 Acute upper respiratory infection, unspecified; J45.909 Unspecified asthma, uncomplicated; O20.8 Other hemorrhage in early pregnancy; O21.9 Vomiting of pregnancy, unspecified; O26.891 Other specified pregnancy related conditions, first trimester; R10.84 Generalized abdominal pain; R05 Cough; R50.9 Fever, unspecified; Z98.890 Other specified postprocedural states; Z87.891 Personal history of nicotine dependence; Z3A.01 Less than 8 weeks gestation of pregnancy; Z91.013 Allergy to seafood
CPT/HCPCS: 94640; 99284; 96361; 96374; 96375; 86900; 86901; 36415; 84702; 85025; 80053; 81001; 76817; 93976; J3490 ×2; J2270; J2405; J7030; J7620

== ENCOUNTER 2017-12-19 15:26 | Emergency (ER) | payer MEDICAID ==
--- NOTE | 2017-12-19 15:58 | ER Document Report ---
ED Medical Screen (RME) - General Chief Complaint: Vag Bleeding, +preg <12wks Stated Complaint: VAGINAL BLEEDING Time Seen by Provider: 12/19/17 15:51 Mode of Arrival: Ambulatory Information source: Patient Notes: This is a 27-year-old female who presents to the emergency room with vaginal bleeding in the setting of early . Patient has had serial ultrasounds and had gotten with an IUD and recently had the IUD removed. TRAVEL OUTSIDE OF THE [place] IN LAST 30 DAYS: No - Related Data Allergies/Adverse Reactions: iodine Allergy (Verified 12/19/17 15:30) shrimp Allergy (Verified 12/19/17 15:30) shrimp Allergy (Uncoded 12/14/17 22:35) Past Medical History - Past Medical History Cardiac Medical History: Reports: Hx DVT Pulmonary Medical History: Reports: Hx Asthma, Hx Bronchitis Renal/ Medical History: Reports: Hx Kidney Stones. Denies: Hx Peritoneal Dialysis - Immunizations Hx Diphtheria, Pertussis, Tetanus Vaccination: Yes Physical Exam - Vital signs Vitals: Temp Pulse Resp BP Pulse Ox 97.6 F 91 16 115/70 99 12/19/17 15:33 12/19/17 15:33 12/19/17 15:33 12/19/17 15:33 12/19/17 15:33 Course - Vital Signs Vital signs: Temp Pulse Resp BP Pulse Ox 97.6 F 91 16 115/70 99 12/19/17 15:33 12/19/17 15:33 12/19/17 15:33 12/19/17 15:33 12/19/17 15:33 Doctor's Discharge - Discharge Referrals: DB DIAZ MD [Primary Care Provider] - Follow up as needed
[2017-12-19 16:32] LABS: ABSOLUTE BASOPHILS # (AUTO) 0.1 10^3/uL (0.0-0.2); ABSOLUTE EOSINOPHILS # (AUTO) 0.1 10^3/uL (0.0-0.6); ABSOLUTE LYMPHOCYTES (AUTO) 3.4 10^3/uL (0.5-4.7); ABSOLUTE MONOCYTES (AUTO) 0.4 10^3/uL (0.1-1.4); ABSOLUTE NEUT (AUTO) 2.1 10^3/uL (1.7-8.2); BASOPHILS % (AUTO) 0.9 % (0-2); HEMATOCRIT 34.7 % (36.0-47.0); LYMPHOCYTES % (AUTO) 55.7 % (13-45); MEAN CORPUSCULAR HEMOGLOBIN 23.7 pg (27.0-33.4); MEAN CORPUSCULAR HGB CONC 31.7 g/dL (32.0-36.0); MEAN CORPUSCULAR VOLUME 75 fl (80-97); MONOCYTES % (AUTO) 7.2 % (3-13); PLATELET COUNT 325 10^3/uL (150-450); RED BLOOD COUNT 4.64 10^6/uL (3.72-5.28); RED CELL DISTRIBUTION WIDTH 14.3 % (11.5-14.0); SEGMENTED NEUTROPHILS % (AUTO) 34.2 % (42-78); TOTAL CELLS COUNTED % (AUTO) 100 %
[2017-12-19 16:52] LABS: ALANINE AMINOTRANSFERASE 24 U/L (9-52); ALBUMIN 4.3 g/dL (3.5-5.0); ALKALINE PHOSPHATASE 41 U/L (38-126); ANION GAP 11 (5-19); ASPARTATE AMINO TRANSFERASE 22 U/L (14-36); BILIRUBIN,DIRECT 0.3 mg/dL (0.0-0.4); BILIRUBIN,TOTAL 0.6 mg/dL (0.2-1.3); BLOOD UREA NITROGEN 9 mg/dL (7-20); CALCIUM 9.6 mg/dL (8.4-10.2); CARBON DIOXIDE 22 mmol/L (22-30); CHLORIDE 104 mmol/L (98-107); GLUCOSE 81 mg/dL (75-110); POTASSIUM 4.1 mmol/L (3.6-5.0); SODIUM 137.3 mmol/L (137-145); TOTAL PROTEIN 7.5 g/dL (6.3-8.2)
[2017-12-19] MEDS ORDERED: ACETAMINOPHEN 325 MG TABLET PO ONE (17:40)
--- NOTE | 2017-12-19 18:59 | RADIOLOGY REPORT (SQ) ---
EXAM DESCRIPTION: U/S OB TRANSVAGINAL W/O DOP COMPLETED DATE/TIME: 12/19/2017 6:43 pm REASON FOR STUDY: + vag bleed COMPARISON: None. TECHNIQUE: Transvaginal static and realtime grayscale images acquired of the pelvis. Additional yahir cted spectral and color Doppler images recorded. All images stored on PACs. [id number] LIMITATIONS: None. FINDINGS: FETUS: Living intrauterine . EGA: 8 weeks 6 day MANUELITO: 07/29/2018 FHR: 175 beats per minute. SUBCHORIONIC BLEED: Yes SIZE OF BLEED: 1.0 x 1.1 cm UTERUS: No masses. No anomalies. CERVICAL LENGTH: 2.6 cm Closed. RIGHT ADNEXA: Right ovary was not visualized. No adnexal free fluid. No adnexal masses. LEFT ADNEXA: Left ovary was not visualized. No adnexal free fluid. No adnexal masses. FREE FLUID: None. OTHER: No other significant finding. IMPRESSION: LIVING INTRAUTERINE . EGA 8 weeks 6 days Trimester of : First - 0 to 13 weeks. TECHNICAL DOCUMENTATION: JOB ID: [id number] [employer]- All Rights Reserved Reading location - IP/workstation name: [email or web address]
--- NOTE | 2017-12-19 19:08 | ER Document Report ---
ED General - General Chief Complaint: Vag Bleeding, +preg <12wks Stated Complaint: VAGINAL BLEEDING Time Seen by Provider: 12/19/17 15:51 Mode of Arrival: Ambulatory Information source: Patient Notes: 27-year-old female who is 8 weeks presents with complaints of vaginal bleeding. Patient denies any fevers chills denies any nausea vomiting or diarrhea, patient notes that she has been seen multiple times for this is noted to have a subchorionic bleed she has passed a few blood clots but does not believe the fetus was passed TRAVEL OUTSIDE OF THE [place] IN LAST 30 DAYS: No - HPI Onset: Last week Onset/Duration: Intermittent Quality of pain: Cramping Severity: Mild Pain Level: 1 Associated symptoms: Other Exacerbated by: Denies Relieved by: Denies Similar symptoms previously: Yes Recently seen / treated by doctor: Yes - Related Data Allergies/Adverse Reactions: iodine Allergy (Verified 12/19/17 15:30) shrimp Allergy (Verified 12/19/17 15:30) shrimp Allergy (Uncoded 12/14/17 22:35) Past Medical History - General Information source: Patient - Social History Smoking Status: Never Smoker Cigarette use (# per day): No Chew tobacco use (# tins/day): No Smoking Education Provided: No Family History: Reviewed & Not Pertinent Patient has suicidal ideation: No Patient has homicidal ideation: No - Past Medical History Cardiac Medical History: Reports: Hx DVT Pulmonary Medical History: Reports: Hx Asthma, Hx Bronchitis Renal/ Medical History: Reports: Hx Kidney Stones. Denies: Hx Peritoneal Dialysis - Immunizations Hx Diphtheria, Pertussis, Tetanus Vaccination: Yes Hx Pneumococcal Vaccination: 04/10/14 Review of Systems - Review of Systems Notes: REVIEW OF SYSTEMS: CONSTITUTIONAL : Denies fever, chills, or sweats. Denies recent illness. EENT: Denies eye, ear, throat, or mouth pain or symptoms. Denies nasal or sinus congestion or discharge. Denies throat, tongue, or mouth swelling or difficulty swallowing. CARDIOVASCULAR: Denies chest pain. Denies palpitations or racing or irregular heart beat. Denies ankle edema. RESPIRATORY: Denies cough, cold, or chest congestion. Denies shortness of breath, difficulty breathing, or wheezing. GASTROINTESTINAL: Denies abdominal pain or distention. Denies nausea, vomiting , or diarrhea. Denies blood in vomitus, stools, or per rectum. Denies black, tarry stools. Denies constipation. GENITOURINARY: Denies difficulty urinating, painful urination, burning, frequency, blood in urine, or discharge. FEMALE GENITOURINARY: admits to vaginal bleeding . MUSCULOSKELETAL: Denies back or neck pain or stiffness. Denies joint pain or swelling. SKIN: Denies rash, lesions or sores. HEMATOLOGIC : Denies easy bruising or bleeding. LYMPHATIC: Denies swollen, enlarged glands. NEUROLOGICAL: Denies confusion or altered mental status. Denies passing out or loss of consciousness. Denies dizziness or lightheadedness. Denies headache. Denies weakness or paralysis or loss of use of either side. Denies problems with gait or speech. Denies sensory loss, numbness, or tingling. Denies seizures. PSYCHIATRIC: Denies anxiety or stress. Denies depression, suicidal ideation, or homicidal ideation. ALL OTHER SYSTEMS REVIEWED AND NEGATIVE. PHYSICAL EXAMINATION: GENERAL: Well-appearing, well-nourished and in no acute distress. HEAD: Atraumatic, normocephalic. EYES: Pupils equal round and reactive to light, extraocular movements intact, conjunctiva are normal. ENT: Nares patent, oropharynx clear without exudates. Moist mucous membranes. NECK: Normal range of motion, supple without lymphadenopathy LUNGS: Breath sounds clear to auscultation bilaterally and equal. No wheezes rales or rhonchi. HEART: Regular rate and rhythm without murmurs ABDOMEN: Soft, nontender, nondistended abdomen. No guarding, no rebound. No masses appreciated. Female : deferred Musculoskeletal: Normal range of motion, no pitting or edema. No cyanosis. NEUROLOGICAL: Cranial nerves grossly intact. Normal speech, normal gait. Normal sensory, motor exams PSYCH: Normal mood, normal affect. SKIN: Warm, Dry, normal turgor, no rashes or lesions noted. Dictation was performed using [employer] voice recognition software Physical Exam - Vital signs Vitals: Temp Pulse Resp BP Pulse Ox 97.6 F 91 16 115/70 99 12/19/17 15:33 12/19/17 15:33 12/19/17 15:33 12/19/17 15:33 12/19/17 15:33 Course - Re-evaluation Re-evalutation: 12/19/17 23:16 pt noted ot have vaginal bleeding, 3 clots noted, pt dneies any fevers or chilsl , pt given tylenol for her pain . pt u/s consistent with 8 week , pt given report. subchorionic bleed noted with small improvement in size. 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 Also, there is no evidence or peritonitis , sepsis, or toxicity. I have reevaluated this patient multiple times and no significant life threatening changes are noted. The patient and I have discussed the diagnosis and risks, and we agree with discharging home with close follow-up with the understanding that symptoms and presentations can change. We also discussed returning to the Emergency Department immediately if new or worsening symptoms occur. We have discussed the symptoms which are most concerning (e.g., bloody stool, fever, changing or worsening pain, vomiting) that necessitate immediate return. - Vital Signs Vital signs: Temp Pulse Resp BP Pulse Ox 97.5 F 91 16 114/64 99 12/19/17 19:16 12/19/17 15:33 12/19/17 19:16 12/19/17 19:16 12/19/17 15:33 - Laboratory Result Diagrams: 12/19/17 16:19 12/19/17 16:19 Laboratory results interpreted by me: 12/19/17 12/19/17 16:19 16:19 Hgb 11.0 L Hct 34.7 L MCV 75 L MCH 23.7 L MCHC 31.7 L RDW 14.3 H Seg Neutrophils % 34.2 L Lymphocytes % 55.7 H Beta HCG, Quant 47454.00 H - Diagnostic Test Radiology reviewed: Image reviewed - Report given to patient, Reports reviewed Discharge - Discharge Clinical Impression: Vaginal bleeding affecting early , Threatened miscarriage in early Condition: Stable Disposition: HOME, SELF-CARE Instructions: Threatened Miscarriage ([facility]) Referrals: DB DIAZ MD [Primary Care Provider] - Follow up tomorrow
[2017-12-19 19:25] VITALS: BP 114/64
== END 2017-12-19 19:25 | disposition home or self-care (01) ==
LOC: ER 15:26
DX: O20.0 Threatened abortion (principal); O99.511 Diseases of the respiratory system complicating pregnancy, first trimester; J45.909 Unspecified asthma, uncomplicated; Z3A.08 8 weeks gestation of pregnancy; Z91.013 Allergy to seafood
CPT/HCPCS: 99284; 86900; 86901; 36415; 84702; 85025; 80053; 76817; J3490

== ENCOUNTER 2018-02-15 07:41 | Emergency (ER) | payer MEDICAID ==
[2018-02-15] MEDS ORDERED: NORMAL SALINE 1000 ML 1,000 ML IV ONE (07:58)
--- NOTE | 2018-02-15 07:59 | ER Document Report ---
ED GI/ - General Chief Complaint: Vaginal Bleeding Stated Complaint: VAGINAL BLEEDING Time Seen by Provider: 02/15/18 07:46 Mode of Arrival: Ambulatory Information source: Patient Notes: Patient presents complaining of pelvic cramping and vaginal bleeding. Patient states that she is currently 16 weeks . Patient is . Patient reports that she has had intermittent episodes of bleeding during this . Patient states that she became while having an IUD in place and then had the IUD removed at about 8 weeks gestation. Patient additionally reports sinus congestion. No fever. TRAVEL OUTSIDE OF THE [place] IN LAST 30 DAYS: No - HPI Patient complains to provider of: Pelvic pain, , Vaginal bleeding. No: Vaginal discharge, Vomiting Onset: This morning Timing/Duration: Gradual Quality of pain: Cramping Pain Level: 4 Context: Vaginal bleeding (Compared to normal period): Passing clots Associated symptoms: denies: Dizzy, Fever, Nausea, Vaginal discharge, Vomiting Exacerbated by: Denies Relieved by: Denies Similar symptoms previously: Yes Recently seen / treated by doctor: No - Related Data Allergies/Adverse Reactions: iodine Allergy (Verified 02/15/18 07:43) shrimp Allergy (Verified 02/15/18 07:43) shrimp Allergy (Uncoded 02/15/18 07:43) Past Medical History - General Information source: Patient Last Menstrual Period: 16 weeks - Social History Smoking Status: Never Smoker Frequency of alcohol use: None Drug Abuse: None Occupation: None Lives with: Family Family History: Reviewed & Not Pertinent - Past Medical History Cardiac Medical History: Reports: Hx DVT Pulmonary Medical History: Reports: Hx Asthma, Hx Bronchitis Renal/ Medical History: Reports: Hx Kidney Stones. Denies: Hx Peritoneal Dialysis Surgical Hx: Negative - Immunizations Hx Diphtheria, Pertussis, Tetanus Vaccination: Yes Hx Pneumococcal Vaccination: 04/10/14 Review of Systems - Review of Systems Constitutional: No symptoms reported. denies: Fever, Recent illness EENT: Nose congestion, Sinus pressure. denies: Throat pain Cardiovascular: No symptoms reported Respiratory: Cough. denies: Short of breath Gastrointestinal: Abdominal pain. denies: Nausea, Vomiting Genitourinary: No symptoms reported. denies: Dysuria, Flank pain Female Genitourinary: , Vaginal bleeding. denies: Vaginal discharge Musculoskeletal: Back pain Skin: No symptoms reported Hematologic/Lymphatic: No symptoms reported Neurological/Psychological: No symptoms reported Physical Exam - Vital signs Vitals: Temp Pulse Resp BP Pulse Ox 98.0 F 94 18 123/80 98 02/15/18 07:45 02/15/18 07:45 02/15/18 07:45 02/15/18 07:45 02/15/18 07:45 - General General appearance: Appears well, Alert In distress: None - HEENT Head: Normocephalic Eyes: Normal Conjunctiva: Normal Sinus: Normal Nasal: Swelling, Clear rhinorrhea Mouth/Lips: Normal Mucous membranes: Normal Neck: Normal - Respiratory Respiratory status: No respiratory distress Chest status: Nontender Breath sounds: Normal. No: Rales, Rhonchi, Stridor, Wheezing Chest palpation: Normal - Cardiovascular Rhythm: Regular Heart sounds: S1 appreciated, S2 appreciated Murmur: No - Abdominal Inspection: Gravid female Distension: No distension Bowel sounds: Normal Tenderness: Tender - lower pelvic - Genitourinary External exam: Normal Speculum exam: Cervix closed, Vaginal discharge Vaginal bleeding: None Bimanuel exam: Normal. No: Cervical motion tender, Adnexal mass, Adnexal tenderness - Back Back: CVA tenderness - bilat - Extremities General upper extremity: Normal inspection, Normal ROM General lower extremity: Normal inspection, Normal ROM - Neurological Neuro grossly intact: Yes Cognition: Normal [place]ner Coma Scale Eye Opening: Spontaneous [place] Coma Scale Verbal: Oriented [place] Coma Scale Motor: Obeys Commands Conner Coma Scale Total: 15 - Psychological Associated symptoms: Normal affect, Normal mood - Skin Skin Temperature: Warm Skin Moisture: Dry Skin Color: Normal Course - Re-evaluation Re-evalutation: 02/15/18 10:42 Vaginal bleeding resolved, no acute abnormality noted on ultrasound. Patient was stable vital signs. Patient mildly anemic although not at a transfusable level. Patient nontoxic in appearance. - Vital Signs Vital signs: Temp Pulse Resp BP Pulse Ox 98.2 F 82 18 122/66 97 02/15/18 10:54 02/15/18 10:54 02/15/18 07:45 02/15/18 10:54 02/15/18 10:54 - Laboratory Result Diagrams: 02/15/18 08:25 02/15/18 08:25 Laboratory results interpreted by me: 02/15/18 02/15/18 08:25 08:25 Hgb 10.5 L Hct 32.4 L MCV 76 L MCH 24.6 L RDW 14.5 H BUN 6 L Alkaline Phosphatase 36 L Beta HCG, Quant 69489.00 H Labs- Entire Visit 02/15/18 02/15/18 02/15/18 08:25 08:25 08:25 WBC 8.5 RBC 4.28 Hgb 10.5 L Hct 32.4 L MCV 76 L MCH 24.6 L MCHC 32.5 RDW 14.5 H Plt Count 304 Seg Neutrophils % 67.7 Lymphocytes % 21.2 Monocytes % 6.0 Eosinophils % 4.4 Basophils % 0.7 Absolute Neutrophils 5.8 Absolute Lymphocytes 1.8 Absolute Monocytes 0.5 Absolute Eosinophils 0.4 Absolute Basophils 0.1 PT 12.8 INR 0.92 APTT 30.8 Sodium 139.1 Potassium 4.0 Chloride 105 Carbon Dioxide 26 Anion Gap 8 BUN 6 L Creatinine 0.58 Est GFR ( Amer) > 60 Est GFR (Non-Af Amer) > 60 Glucose 81 Calcium 9.3 Total Bilirubin 0.5 Direct Bilirubin 0.2 Neonat Total Bilirubin Not Reportable Neonat Direct Bilirubin Not Reportable Neonat Indirect Bili Not Reportable AST 21 ALT 22 Alkaline Phosphatase 36 L Total Protein 7.0 Albumin 3.9 Beta HCG, Quant 28188.00 H Total Beta HCG POSITIVE Urine Color Urine Appearance Urine pH Ur Specific [place] Urine Protein Urine Glucose (UA) Urine Ketones Urine Blood Urine Nitrite Urine Bilirubin Urine Urobilinogen Ur Leukocyte Esterase Urine WBC (Auto) Urine RBC (Auto) Squamous Epi Cells Auto Urine Mucus (Auto) Urine Ascorbic Acid Epi Cells (Wet Prep) Bacteria (Wet Prep) Trichomonas (Wet Prep) Vaginal WBC Vaginal RBC Vaginal Yeast 02/15/18 02/15/18 08:50 10:10 WBC RBC Hgb Hct MCV MCH MCHC RDW Plt Count Seg Neutrophils % Lymphocytes % Monocytes % Eosinophils % Basophils % Absolute Neutrophils Absolute Lymphocytes Absolute Monocytes Absolute Eosinophils Absolute Basophils PT INR APTT Sodium Potassium Chloride Carbon Dioxide Anion Gap BUN Creatinine Est GFR ( Amer) Est GFR (Non-Af Amer) Glucose Calcium Total Bilirubin Direct Bilirubin Neonat Total Bilirubin Neonat Direct Bilirubin Neonat Indirect Bili AST ALT Alkaline Phosphatase Total Protein Albumin Beta HCG, Quant Total Beta HCG Urine Color YELLOW Urine Appearance CLEAR Urine pH 7.0 Ur Specific [place] 1.019 Urine Protein NEGATIVE Urine Glucose (UA) NEGATIVE Urine Ketones NEGATIVE Urine Blood NEGATIVE Urine Nitrite NEGATIVE Urine Bilirubin NEGATIVE Urine Urobilinogen NEGATIVE Ur Leukocyte Esterase NEGATIVE Urine WBC (Auto) 1 Urine RBC (Auto) 2 Squamous Epi Cells Auto <1 Urine Mucus (Auto) RARE Urine Ascorbic Acid NEGATIVE Epi Cells (Wet Prep) 3+ EPITHELIALS SEEN Bacteria (Wet Prep) 3+ BACTERIA SEEN Trichomonas (Wet Prep) NO TRICHOMONAS SEEN Vaginal WBC 1+ WBCS SEEN Vaginal RBC FEW RBCS SEEN Vaginal Yeast NO YEAST SEEN - Diagnostic Test Radiology reviewed: Reports reviewed Discharge - Discharge Clinical Impression: Vaginal bleeding, Nasal congestion Qualifiers: Weeks of gestation: 16 weeks Qualified Code(s): Z3A.16 - 16 weeks gestation of Condition: Stable Disposition: HOME, SELF-CARE Instructions: Bleeding During Early ([facility]) Additional Instructions: Return immediately for any new or worsening symptoms Followup with your primary care provider, call tomorrow to make a followup appointment 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 Pelvic rest until cleared by your OB provider Referrals: BOBBY STEARNS MD [Primary Care Provider] - Follow up as needed [facility] [Provider Group] - Follow up tomorrow
[2018-02-15 08:38] LABS: ABSOLUTE BASOPHILS # (AUTO) 0.1 10^3/uL (0.0-0.2); ABSOLUTE EOSINOPHILS # (AUTO) 0.4 10^3/uL (0.0-0.6); ABSOLUTE LYMPHOCYTES (AUTO) 1.8 10^3/uL (0.5-4.7); ABSOLUTE MONOCYTES (AUTO) 0.5 10^3/uL (0.1-1.4); ABSOLUTE NEUT (AUTO) 5.8 10^3/uL (1.7-8.2); BASOPHILS % (AUTO) 0.7 % (0-2); EOSINOPHILS % (AUTO) 4.4 % (0-6); HEMATOCRIT 32.4 % (36.0-47.0); HEMOGLOBIN 10.5 g/dL (12.0-15.5); LYMPHOCYTES % (AUTO) 21.2 % (13-45); MEAN CORPUSCULAR HEMOGLOBIN 24.6 pg (27.0-33.4); MEAN CORPUSCULAR HGB CONC 32.5 g/dL (32.0-36.0); MEAN CORPUSCULAR VOLUME 76 fl (80-97); PLATELET COUNT 304 10^3/uL (150-450); RED BLOOD COUNT 4.28 10^6/uL (3.72-5.28); RED CELL DISTRIBUTION WIDTH 14.5 % (11.5-14.0); SEGMENTED NEUTROPHILS % (AUTO) 67.7 % (42-78); TOTAL CELLS COUNTED % (AUTO) 100 %; WHITE BLOOD COUNT 8.5 10^3/uL (4.0-10.5)
[2018-02-15 08:43] LABS: INTERNATIONAL RATION (INR) 0.92; PARTIAL THROMBOPLASTIN TIME 30.8 SEC (23.5-35.8); PROTHROMBIN TIME 12.8 SEC (11.4-15.4)
[2018-02-15 09:00] LABS: ALANINE AMINOTRANSFERASE 22 U/L (9-52); ALBUMIN 3.9 g/dL (3.5-5.0); ALKALINE PHOSPHATASE 36 U/L (38-126); ANION GAP 8 (5-19); ASPARTATE AMINO TRANSFERASE 21 U/L (14-36); BILIRUBIN,DIRECT 0.2 mg/dL (0.0-0.4); BILIRUBIN,TOTAL 0.5 mg/dL (0.2-1.3); BLOOD UREA NITROGEN 6 mg/dL (7-20); CALCIUM 9.3 mg/dL (8.4-10.2); CARBON DIOXIDE 26 mmol/L (22-30); CHLORIDE 105 mmol/L (98-107); GLUCOSE 81 mg/dL (75-110); SODIUM 139.1 mmol/L (137-145)
--- NOTE | 2018-02-15 09:51 | RADIOLOGY REPORT (SQ) ---
EXAM DESCRIPTION: U/S OB 14+ TRNABD 1GES W/O DOP COMPLETED DATE/TIME: 02/15/2018 9:28 am REASON FOR STUDY: pelvic pain, vaginal bleeding COMPARISON: 12/19/2017 TECHNIQUE: Static and Dynamic grayscale imaging performed of gravid uterus using transabdominal appr oach. Additional selected color Doppler and spectral images recorded. All stored on PACS. LIMITATIONS: None. FINDINGS: EGA: 16 weeks 5 day MANUELITO: 07/28/2018 EFW: 165+/- 24 grams PERCENTILE: Not calculated AMANDA: Largest pocket 3.4 cm PLACENTA: Fundal grade 1 PRESENTATION: Cephalic. ANATOMY: HEART RATE: 136 beats per minute. FOUR CHAMBER HEART: Visualized. THREE VESSEL CORD: Yes. CORD INSERTION: Visualized. KIDNEYS AND BLADDER: Visualized. Appear normal. STOMACH: Visualized. Appears normal. SPINE: Normal as visualized. BRAIN AND LATERAL VENTRICLES: Visualized. Appear normal. OTHER: No other significant finding. MATERNAL ADNEXA: Maternal ovaries not visualized. CERVICAL LENGTH: 4.2 cm Closed. OTHER: No other significant finding. IMPRESSION: LIVING INTRAUTERINE . ESTIMATED GESTATIONAL AGE 16 weeks 5 days NO VISUALIZED ANOMALIES. Trimester of : Second trimester - 13 weeks 1 day to 27 weeks 6 days. TECHNICAL DOCUMENTATION: JOB ID: [id number] [employer]- All Rights Reserved Reading location - IP/workstation name: LEON
[2018-02-15 10:16] LABS: APPEARANCE,URINE CLEAR; BILIRUBIN,URINE NEGATIVE (NEGATIVE); COLOR,URINE YELLOW; GLUCOSE, URINE NEGATIVE (NEGATIVE); KETONES,URINE NEGATIVE (NEGATIVE); LEUKOCYTE ESTERASE,URINE NEGATIVE (NEGATIVE); NITRITE,URINE NEGATIVE (NEGATIVE); PROTEIN,URINE NEGATIVE (NEGATIVE); URINE SPECIFIC GRAVITY 1.019; UROBILINOGEN,URINE NEGATIVE mg/dL (<2.0)
[2018-02-15 10:35] LABS: BACTERIA (WET MOUNT) 3+ BACTERIA SEEN; EPITHELIALS (WET MOUNT) 3+ EPITHELIALS SEEN; RBCS (WET MOUNT) FEW RBCS SEEN; T.VAGINALIS (WET MOUNT) NO TRICHOMONAS SEEN; WBCS (WET MOUNT) 1+ WBCS SEEN; YEAST (WET MOUNT) NO YEAST SEEN
[2018-02-15] MEDS ORDERED: DIPHENHYDRAMINE HCL 50 MG CAPSULE PO ONE (10:44)
[2018-02-15 10:57] VITALS: BP 122/66
[2018-02-15 11:52] LABS: CHLAM PCR NOT DETECTED (NOT DETECT); GON PCR NOT DETECTED (NOT DETECT)
== END 2018-02-15 11:09 | disposition home or self-care (01) ==
LOC: ER 07:41
DX: O20.9 Hemorrhage in early pregnancy, unspecified (principal); O26.892 Other specified pregnancy related conditions, second trimester; R09.81 Nasal congestion; R10.2 Pelvic and perineal pain; R05 Cough; O99.89 Other specified diseases and conditions complicating pregnancy, childbirth and the puerperium; M54.9 Dorsalgia, unspecified; O99.012 Anemia complicating pregnancy, second trimester; D64.9 Anemia, unspecified; O99.512 Diseases of the respiratory system complicating pregnancy, second trimester; J34.89 Other specified disorders of nose and nasal sinuses; J45.909 Unspecified asthma, uncomplicated; Z3A.16 16 weeks gestation of pregnancy; Z91.013 Allergy to seafood
CPT/HCPCS: 99284; 96360; 36415; 87210; 84702; 85025; 85610; 85730; 80053; 81001; 87491; 87591; 76805; J7030

== ENCOUNTER 2018-04-29 23:29 | Outpatient (CLI) | payer MEDICAID ==
[2018-04-30 00:20] LABS: APPEARANCE,URINE SLIGHTLY-CLOUDY; BILIRUBIN,URINE NEGATIVE (NEGATIVE); COLOR,URINE YELLOW; GLUCOSE, URINE NEGATIVE (NEGATIVE); KETONES,URINE NEGATIVE (NEGATIVE); LEUKOCYTE ESTERASE,URINE TRACE (NEGATIVE); NITRITE,URINE NEGATIVE (NEGATIVE); PROTEIN,URINE NEGATIVE (NEGATIVE); URINE SPECIFIC GRAVITY 1.024
[2018-04-30 00:28] LABS: BACTERIA (WET MOUNT) 4+ BACTERIA SEEN; EPITHELIALS (WET MOUNT) 4+ EPITHELIALS SEEN; RBCS (WET MOUNT) FEW RBCS SEEN; T.VAGINALIS (WET MOUNT) NO TRICHOMONAS SEEN; WBCS (WET MOUNT) 2+ WBCS SEEN; YEAST (WET MOUNT) YEAST SEEN
[2018-04-30 00:36] LABS: URINE AMPHETAMINES SCREEN NEGATIVE; URINE BARBITURATES SCREEN NEGATIVE; URINE BENZODIAZEPINES SCREEN NEGATIVE; URINE COCAINE SCREEN NEGATIVE; URINE MARIJUANA (THC) SCREEN NEGATIVE; URINE METHADONE SCREEN NEGATIVE; URINE PHENCYCLIDINE SCREEN NEGATIVE
--- NOTE | 2018-04-30 01:35 | RADIOLOGY REPORT (SQ) ---
EXAM DESCRIPTION: US LIMITED COMPLETED DATE/TME: 04/30/2018 00:00 CLINICAL HISTORY: 27 years, Female, bleeding at 27 weeks LMP 10/18/2017. COMPARISON: None. TECHNIQUE: Limited third trimester of obstetrical ultrasound. FINDINGS: Cervical length: 3.3 cm and closed. position: Vertex. AMANDA: 15.4 cm. heart rate: 140 bpm. Placenta: Anterior. IMPRESSION: Single live intrauterine with heart rate of 140 bpm. 2011 [employer]- All Rights Reserved
[2018-04-30] MEDS ORDERED: FLUCONAZOLE 100 MG TABLET PO ONE (01:36)
[2018-04-30] MEDS ORDERED: FLUCONAZOLE 100 MG TABLET ONE (01:39)
[2018-04-30 01:49] LABS: CHLAM PCR NOT DETECTED (NOT DETECT); GON PCR NOT DETECTED (NOT DETECT)
== END 2018-04-30 02:17 | disposition home or self-care (01) ==
LOC: LC 23:29
PROVIDERS: ATTEND Obstetrics & Gynecology
DX: O47.02 False labor before 37 completed weeks of gestation, second trimester (principal); Z3A.27 27 weeks gestation of pregnancy
CPT/HCPCS: 87210; 81001; 80307; 87491; 87591; 76815; J3490

== ENCOUNTER 2018-06-01 16:39 | Outpatient (CLI) | payer MEDICAID | END 2018-06-01 18:07 | disposition home or self-care (01) | LOC: LC 16:39 | PROVIDERS: ATTEND Obstetrics & Gynecology | PROC: 4A1HXCZ Monitoring of Products of Conception, Cardiac Rate, External Approach (ICD-10-PCS; principal; 2018-06-01) | DX: Z34.93 Encounter for supervision of normal pregnancy, unspecified, third trimester (principal); Z3A.32 32 weeks gestation of pregnancy ==

== ENCOUNTER 2018-06-28 16:11 | Outpatient (CLI) | payer MEDICAID ==
--- NOTE | 2018-06-28 16:50 | Non Stress Test Report ---
Non Stress Test Datetime Report Generated by CPN: 06/28/2018 16:50 DEMOGRAPHIC EGA NST: 35.5 INDICATION Indication for Study: Ordered by Provider MONITORING Monitor Explained: Monitor Explained; Test Explained; Patient Verbalized Understanding Time on Monitor: 06/28/2018 16:20 Time off Monitor: 06/28/2018 16:43 NST Duration: 23 NST INTERVENTIONS NST Interventions: PO Hydration Physician Notified NST: Dr. Dash BABY A: [id number] BABY A Movement : Present Contraction Frequency : 0 FHR Baseline : 120 Accelerations : 15X15 Decelerations : None Variability : Moderate 6-25bpm NST Review: Meets Criteria for Reactive NST NST Review and Verified By : SABRA Baptiste Results: Reactive NST REPORT Report Trigger: Send Report
== END 2018-06-28 16:48 | disposition home or self-care (01) ==
LOC: LC 16:11
PROVIDERS: ATTEND Student in an Organized Health Care Education/Training Program
PROC: 4A1HXCZ Monitoring of Products of Conception, Cardiac Rate, External Approach (ICD-10-PCS; principal; 2018-06-28)
DX: O36.8130 Decreased fetal movements, third trimester, not applicable or unspecified (principal); Z3A.35 35 weeks gestation of pregnancy
CPT/HCPCS: 59025

== ENCOUNTER 2018-07-05 11:16 | Outpatient (CLI) | payer MEDICAID ==
--- NOTE | 2018-07-05 11:56 | Non Stress Test Report ---
Non Stress Test Datetime Report Generated by CPN: 07/05/2018 11:56 DEMOGRAPHIC EGA NST: 36.5 INDICATION Indication for Study: Intrauterine Growth Restriction; Ordered by Provider VITAL SIGNS Temperature - NST: 97.8 Pulse - NST: 97 RESP - NST: 20 NBPSYS NST: 99 NBPDIA NST: 58 MONITORING Monitor Explained: Monitor Explained; Test Explained; Patient Verbalized Understanding Time on Monitor: 07/05/2018 11:27 Time off Monitor: 07/05/2018 11:54 NST Duration: 27 NST INTERVENTIONS NST Interventions: PO Hydration; Reposition Patient Physician Notified NST: Dr Feng BABY A: [id number] BABY A Movement : Present Contraction Frequency : none Accelerations : 15X15 Decelerations : None Variability : Moderate 6-25bpm NST Review: Meets Criteria for Reactive NST NST Review and Verified By : Yony Purvis RN NST Results: Reactive NST REPORT Report Trigger: Send Report
== END 2018-07-05 11:52 | disposition home or self-care (01) ==
LOC: LC 11:16
PROVIDERS: ATTEND Obstetrics & Gynecology Gynecology
PROC: 4A1HXCZ Monitoring of Products of Conception, Cardiac Rate, External Approach (ICD-10-PCS; principal; 2018-07-05)
DX: O36.5930 Maternal care for other known or suspected poor fetal growth, third trimester, not applicable or unspecified (principal); Z3A.36 36 weeks gestation of pregnancy
CPT/HCPCS: 59025

== ENCOUNTER 2018-07-18 07:01 | Inpatient (IN) | payer MEDICAID ==
[2018-07-18] MEDS ORDERED: OXYTOCIN/NORMAL SALINE 20 UNIT/1,000 ML RTUINJ IV PRN ×3 (07:04→19:04)
[2018-07-18] MEDS ORDERED: RINGERS SOLUTION,LACTATED 300 ML IV ONE (07:04)
[2018-07-18] MEDS ORDERED: PENICILLIN G POTASSIUM 5,000,000 UNIT in DEXTROSE 5%-WATER 100 ML IV ONE (07:08)
[2018-07-18] MEDS: RINGERS SOLUTION,LACTATED 1,000 ML IV PRN ×2 (07:27→12:19)
[2018-07-18 07:44] LABS: ABSOLUTE BASOPHILS # (AUTO) 0.1 10^3/uL (0.0-0.2); ABSOLUTE EOSINOPHILS # (AUTO) 0.2 10^3/uL (0.0-0.6); ABSOLUTE LYMPHOCYTES (AUTO) 2.5 10^3/uL (0.5-4.7); ABSOLUTE MONOCYTES (AUTO) 0.5 10^3/uL (0.1-1.4); ABSOLUTE NEUT (AUTO) 3.9 10^3/uL (1.7-8.2); BASOPHILS % (AUTO) 0.7 % (0-2); EOSINOPHILS % (AUTO) 2.5 % (0-6); HEMATOCRIT 30.7 % (36.0-47.0); HEMOGLOBIN 9.9 g/dL (12.0-15.5); MEAN CORPUSCULAR HGB CONC 32.1 g/dL (32.0-36.0); MEAN CORPUSCULAR VOLUME 75 fl (80-97); MONOCYTES % (AUTO) 7.2 % (3-13); PLATELET COUNT 248 10^3/uL (150-450); RED CELL DISTRIBUTION WIDTH 14.6 % (11.5-14.0); SEGMENTED NEUTROPHILS % (AUTO) 54.6 % (42-78); TOTAL CELLS COUNTED % (AUTO) 100 %; WHITE BLOOD COUNT 7.2 10^3/uL (4.0-10.5)
[2018-07-18 08:10] LABS: URINE AMPHETAMINES SCREEN NEGATIVE; URINE BARBITURATES SCREEN NEGATIVE; URINE BENZODIAZEPINES SCREEN NEGATIVE; URINE COCAINE SCREEN NEGATIVE; URINE MARIJUANA (THC) SCREEN NEGATIVE; URINE METHADONE SCREEN NEGATIVE; URINE PHENCYCLIDINE SCREEN NEGATIVE
[2018-07-18] MEDS ORDERED: PENICILLIN G-K 5 MILLION UNIT VIAL ONE ×2 (08:18→12:06)
[2018-07-18] MEDS ORDERED: OXYTOCIN/NORMAL SALINE 0 UNIT/0 ML RTUINJ ONE (08:18)
--- NOTE | 2018-07-18 08:44 | Admission Physical ---
Datetime Report Generated by CPN: 07/18/2018 08:43 CURRENT ADMISSION Hx Assessment: The History has been Reviewed and is Current Chief Complaint: Scheduled Induction of Labor Indication for Induction- Other: Hx of DVT after having a delivery, pt on Lovenox this . Admit Impression : Term, Intrauterine ; Induction of Labor Admit Impression- Other: Pt stable, doing well today. Cat 1 FHR tracing. Hx of Prolactinoma, Hx of Pre-eclampsia, subchorionic hemorrhage noted this . +GBS, Pt desires a BTL Admit Plan: Admit to Unit; Initiate Labor Induction Protocol Admit Plan- Other: Pt plans natural labor. Will start PCN for +GBS status ALLERGIES Medication Allergies: Yes Medication Allergies: iodine (07/18/2018); shrimp (07/18/2018) Latex: No Latex Allergies Food Allergies: shrimp Environmental Allergies: seasonal OBSTETRICAL HISTORY EDC: 07/28/2018 00:00 : 6 Para: 4 Term: 3 : 1 SAB: 1 IAB: 0 Ectopic: 0 Livin Cesareans: 0 VBACs: 0 Multiple Births: 0 Gestational Diabetes: No Rh Sensitization: No Incompetent Cervix: No BONI: No Infertility: No ART Treatment: No Uterine Anomaly: No IUGR: No Hx Previous C/S: No Macrosomia: No Hx Loss/Stillborn: No PIH: No Hx : No Placenta Previa/Abruption: No Depression/PP Depression: Yes PTL/PROM: Yes Post Hemorrhage: No Current Procedures: Ultrasound Obstetrical History Comments: G1- 2012 SAB G2- 2012 at 37 weeks, 6lbs 5oz female G3- 2013 at 38 weeks, 6lbs 2oz female G4- 2015 at 36 weeks, 5lbs female, DVT G5- 2016 at 40 weeks 6lbs 7oz female, precip delivery, - current SEE RECORDS Alcohol: No Marijuana : No Cocaine: No Other Illicit Drugs: No Cigarettes: Never Smoker. [id number] MEDICAL HISTORY Diabetes: No Blood Transfusion: No Pulmonary Disease (Asthma, TB): Yes Breast Disease: No Hypertension: No Stable Manager Surgery: No Heart Disease: No Hosp/Surgery: Yes Autoimmune Disorder: No Anesthetic Complications: No Kidney Disease: No Abnormal Pap Smear: No Neuro/Epilepsy: No Psychiatric Disorders: No Other Medical Diseases: Yes Hepatitis/Liver Disease: No Significant Family History: No Varicosities/Phlebitis: No Trauma/Violence : No Thyroid Dysfunction: Yes Medical History Comments: benign pituitary tumor, DVT 2016 on lovenox, asthma, depression, thyroid nodule INFECTIOUS HISTORY Gonorrhea: No Genital Herpes: No Chlamydia: No Tuberculosis: No Syphilis: No Hepatitis: No HIV/AIDS Exposure: No Rash or Viral Illness: No HPV: No PHYSICAL EXAM General: Normal HEENT: Normal Neurologic: Normal Thyroid: Normal Heart: Normal Lungs: Normal Breast: Normal Back: Normal Abdomen: Normal Genitourinary Exam: Normal Extremities: Normal DTRs: Normal Pelvic Type: Adequate Vital Signs: Reviewed; Within Normal Limits VAGINAL EXAM Dilatation: 3 Effacement: 80 Station: -2 Contraction Comments: occassional MEMBRANES Membranes: Intact FETUS A EGA: 38.4 Monitoring: External US FHR- Baseline: 125 Variability: Moderate 6-25bpm Accelerations: 15X15 Decelerations: None FHR Category: Category I Admit Comment: Pt here this morning for IOL, doing well, no complaints. IOL d/t hx of DVT, on Lovenox, last taken last night. +GBS status. pt denies PCN allergy. PLan to start Pitocin then AROM once pt is in active labor. Attending MD is Dr Rock PLANS FOR LABOR AND DELIVERY Labor and Delivery: None Pain Management: None Feeding Preference: Breast Benefit of Breast Feed Discussed: Yes Circumcision: Yes INFORMED CONSENT Assignment: Maty Rock MD Signature: with User ID: Kevin : with User ID: [email or web address]
[2018-07-18] MEDS ORDERED: MISOPROSTOL 0.2 MG TABLET ONE (09:00)
[2018-07-18] MEDS ORDERED: OXYTOCIN/NORMAL SALINE 20 UNIT/1,000 ML RTUINJ ONE (09:00)
[2018-07-18] MEDS ORDERED: LIDOCAINE 1% INJ-PF (10 MG/ML) 30 ML SDV ONE (09:00)
[2018-07-18] MEDS ORDERED: OXYTOCIN 10 UNIT/ML VIAL ONE (09:00)
--- NOTE | 2018-07-18 12:11 | L&D Progress Notes ---
PROGRESS NOTES Datetime Report Generated by CPN: 07/18/2018 12:10 PROGRESS NOTE Impression: Reassuring Heart Rate Procedures: Artificial ROM; Sterile Vag Exam Plan: Continue Present Management; Induction; Anticipate Vaginal Delivery Informed Consent Obtained: Vaginal Delivery Vital Signs : Reviewed; Within Normal Limits Comment: Pitocin infusing, PCN x 1 dose infused for GBS+ status, pt remains comfortable. Has been in the rocking chair, now back in the bed. VE with AROM, clear fluid noted. Plan to continue with Pitocin and PCN. Pt may have an epidural if she desires. Dr Rock is the attending MD VAGINAL EXAM Dilatation: 3 Dilatation: 3 Effacement: 80 Effacement: 80 Station: -2 Station: -2 Contractions: q2-5 Contractions: occassional MEMBRANES Membranes: Ruptured Membranes: Intact Amniotic Fluid Color: Clear FETUS A FHR - Baseline: 130 Monitoring: External US Variability: Moderate 6-25bpm Accelerations: 15X15 Decelerations: None FHR Category: Category I SIGNATURE SIGNATURE: [id number];14,[id number];13,[id number] SIGNATURE: [id number];14,[id number] SIGNATURE: 14,[id number] SIGNATURE: [id number] Assignment: Maty Rock MD Signature: with User ID: [email or web address] : with User ID: [email or web address]
[2018-07-18] MEDS: PENICILLIN G POTASSIUM 2,500,000 UNIT in DEXTROSE 5%-WATER 50 ML IV SCH ×2 (12:15→18:43)
[2018-07-18] MEDS ORDERED: EPHEDRINE SULFATE INJ 50 MG/1 ML AMPULE ONE (13:39)
[2018-07-18] MEDS ORDERED: FENTANYL/BUPIVACAINE/NS/PF 300 MCG/150 ML RTUINJ EPI ONE (13:40)
[2018-07-18] MEDS ORDERED: BUPIVACAINE HCL 0.5 % INJ/PF 30 ML SDV ONE (13:41)
--- NOTE | 2018-07-18 15:09 | L&D Progress Notes ---
PROGRESS NOTES Datetime Report Generated by CPN: 07/18/2018 15:09 PROGRESS NOTE Impression: Reassuring Heart Rate Procedures: Sterile Vag Exam Plan: Continue Present Management; Anticipate Vaginal Delivery Vital Signs : Reviewed; Within Normal Limits Comment: Pt doing well, Pitocin reduced down to 1 mu/min, epidural in place and pt is comfortable. Position changes encouraged. Anticipate VAGINAL EXAM Dilatation: 7 Effacement: 90 Station: -1 Contractions: q 2-3 MEMBRANES Membranes: Ruptured Amniotic Fluid Color: Clear FETUS A FHR - Baseline: 120 Monitoring: External US Variability: Moderate 6-25bpm Accelerations: 15X15 Decelerations: Variable FETUS C SIGNATURE: [id number];14,[id number];10,[id number] Assignment: Maty Rock MD Signature: with User ID: [email or web address] : with User ID: [email or web address]
[2018-07-18] MEDS ORDERED: MEASLES,MUMPS&RUBELLA VACC/PF 0.5 ML VIAL SUBCUT PRN (16:31)
[2018-07-18] MEDS ORDERED: ZOLPIDEM TARTRATE 5 MG TABLET PO PRN (16:31)
[2018-07-18] MEDS ORDERED: DIBUCAINE 1% OINTMENT 28 GM TP PRN (16:31)
[2018-07-18] MEDS ORDERED: DIPH/PERTUSS(ACELL)/TETANUS VAC/PF 0.5 ML SYR (>=10YO) IM PRN (16:31)
[2018-07-18] MEDS ORDERED: ACETAMINOPHEN WITH CODEINE #3 TABLET PO PRN (16:31)
[2018-07-18] MEDS ORDERED: BENZOCAINE/MENTHOL AEROSOL SPRAY 56 ML TOP PRN (16:31)
--- NOTE | 2018-07-18 17:29 | Warning Signs in Babies ---
VOD Warning Signs Datetime Report Generated by [facility]: 07/18/2018 17:29 VOD#608 -Warning Signs in Babies: Viewed with Parent(s)/Family (04/29/2018 23:40:Charly Herrera RN)
--- NOTE | 2018-07-18 17:33 | Delivery Summary ---
Del Sum A-C Datetime Report Generated by CPN: 07/18/2018 17:33 DELIVERY PERSONNEL DELIVERY PERSONNEL: [id number] Delivery Doctor:: Diandra Phoenix CNM Labor and Delivery Nurse:: Charly Herrera RNcamp nurse Nurse:: Candis Nicholson RN Stamp Pad Maker/TALENT PROGRAM MANAGER: Shira Shah ST Additional Personnel: : Laura Hwang RN MATERNAL INFORMATION Delivery Anesthesia: Epidural Medications After Delivery: Pitocin Bolus-Please Comment Meds After Delivery Comment: Pitocin 20 units in 1 L NS bolus as ordered. Estimated Blood Loss (ml): 200QBL Maternal Complications: None Provider Comments: of a viable male, NC x 2, reduced. Baby placed on pts abdoman in stable condition. Cord clamped and cut after 1 minute. Cord Blood obtained. Placenta S/C/I, IV pitocin infusing, FF with decreased lochia. Perineum intact. QBL 200 ML. Mother and baby in stable condition. LABOR SUMMARY EDC: 07/28/2018 00:00 No. Babies in Womb: 1 Attempted: No Labor Anesthesia: Epidural LABOR INFORMATION Reason for Induction: Intrauterine Growth Retardation Onset of Labor: 07/18/2018 12:02 Complete Dilatation: 07/18/2018 15:41 Oxytocin: Induction Group B Beta Strep: Positive Antibiotics # of Doses: 2 Antibiotics Time of Last Dose: 1214 Name of Antibiotic Given: PCN Steroids Given: None Reason Steroids Not Administered: Not Applicable MEMBRANES Membranes Rupture Method: Artificial Rupture of Membranes: 07/18/2018 12:02 Length of Rupture (hr): 3.90 Amniotic Fluid Color: Clear Amniotic Fluid Amount: Small Amniotic Fluid Odor: Normal STAGES OF LABOR Stage 1 hr: 3 Stage 1 min: 39 Stage 2 hr: 0 Stage 2 min: 15 Stage 3 hr: 0 Stage 3 min: 23 Total Time in Labor hr: 4 Total Time in Labor min: 17 VAGINAL DELIVERY Episiotomy: None Laceration #1: None Laceration Extension #1: N/A Laceration Extension #2: N/A Laceration Extension #3: N/A Laceration Repair: Not Applicable Sponge Count Correct: N/A Sharps Count Correct: N/A CSECTION DELIVERY Primary Indication: N/A Secondary Indication: N/A CSection Incidence: N/A Labor: N/A Elective: N/A CSection Incision: N/A BABY A INFORMATION Infant Delivery Date/Time: 07/18/2018 15:56 Method of Delivery: Vaginal Born in Route : No : N/A Forceps: N/A Vacuum Extraction: N/A Shoulder Dystocia : No PRESENTATION/POSITION BABY A Presentation: Cephalic Cephalic Presentation: Vertex Vertex Position: Left Occipital Anterior Breech Presentation: N/A PLACENTA INFORMATION BABY A Placenta Delivery Time : 07/18/2018 16:19 Placenta Method of Delivery: Spontaneous Placenta Status: Delivered SCORES BABY A Heart Rate 1 min: >100 bpm Resp Effort 1 min: Slow, Irregular Reflex Irritability 1 min: Cough or Sneeze or Pulls Away Muscle Tone 1 min: Active Motion Color 1 min: Body [place], Extremities Blue Resuscitation Effort 1 min: N/A SCORE 1 MIN: 8 Heart Rate 5 min: >100 bpm Resp Effort 5 min: Good Cry Reflex Irritability 5 min: Cough or Sneeze or Pulls Away Muscle Tone 5 min: Active Motion Color 5 min: Body [place], Extremities Blue Resuscitation Effort 5 min: N/A SCORE 5 MIN: 9 INFORMATION BABY A Gestational Age at Delivery: 38.4 Gestational Status: Early Term- 37- 38.6 Weeks Infant Outcome : Liveborn Infant Condition : Stable Sex: Male IDENTIFICATION BABY A Verification Date/Time: 07/18/2018 16:05 ID Band Number: [id number] Mother's Name Verified: Yes RN Verifying Infant: TZoey Herrera, RN and C. Emmanuel, RN WEIGHT/LENGTH BABY A Infant Birthweight (gm): 2690 Weight (lb): 5 Infant Weight (oz): 15 Infant Length (in): 19.75 Length (cm): 50.17 CORD INFORMATION BABY A No. Cord Vessels: 3 Nuchal Cord : Around Neck x2, Tight Cord Blood Taken: Yes-For Eval (Mom's Blood Type - or O+) Suction: None ASSESSMENT BABY A Infant Complications: None Physical Findings at Delivery: Within Normal Limits Infant Respirations: Appears Normal Skin to Skin: Yes Skin to Skin Time (min): 60 Accountant Tax/ALS Called : No Care By: Laura Nicholson RN Transferred To: Remains with Mother BABY B INFORMATION : N/A SIGNATURES Assignment: Maty Rock MD Signature: with User ID: Kevin : with User ID: Kevin
[2018-07-18] MEDS: DOCUSATE SODIUM 100 MG CAPSULE PO SCH (18:43)
[2018-07-18] MEDS: FERROUS SULFATE 325 MG TABLET PO SCH (18:43)
[2018-07-18] MEDS ORDERED: GLYCERIN/WITCH HAZEL LEAF 1 EACH MED..PAD TP PRN (19:04)
[2018-07-18] MEDS ORDERED: PROMETHAZINE HCL 25 MG TABLET PO PRN (19:04)
[2018-07-18] MEDS ORDERED: PROMETHAZINE HCL INJ 25 MG/1 ML VIAL IV PRN (19:04)
[2018-07-18] MEDS ORDERED: ACETAMINOPHEN 325 MG TABLET PO PRN (19:04)
[2018-07-18] MEDS ORDERED: NA PHOS,M-B/NA PHOS,DI-BA (ADULT) 133 ML ENEMA PR PRN (19:04)
[2018-07-18] MEDS ORDERED: PSEUDOEPHEDRINE HCL 30 MG TABLET PO PRN (19:04)
[2018-07-18] MEDS ORDERED: MAGNESIUM HYDROXIDE SUSP 30 ML UDCUP PO PRN (19:04)
[2018-07-18] MEDS ORDERED: DIPHENHYDRAMINE HCL 25 MG CAPSULE PO PRN (19:04)
[2018-07-18] MEDS ORDERED: PROMETHAZINE HCL 25 MG SUPP.RECT PR PRN (19:04)
[2018-07-18] MEDS: IBUPROFEN 800 MG TABLET PO SCH (22:12)
[2018-07-18] MEDS: FAMOTIDINE 20 MG TABLET PO SCH (22:15)
[2018-07-19] MEDS: IBUPROFEN 800 MG TABLET PO SCH ×3 (05:29→22:03)
[2018-07-19 07:42] LABS: HEMATOCRIT 27.2 % (36.0-47.0); HEMOGLOBIN 8.8 g/dL (12.0-15.5); MEAN CORPUSCULAR HEMOGLOBIN 24.1 pg (27.0-33.4); MEAN CORPUSCULAR HGB CONC 32.2 g/dL (32.0-36.0); MEAN CORPUSCULAR VOLUME 75 fl (80-97); PLATELET COUNT 249 10^3/uL (150-450); RED BLOOD COUNT 3.63 10^6/uL (3.72-5.28)
[2018-07-19 07:57] LABS: ALANINE AMINOTRANSFERASE 26 U/L (9-52); ALKALINE PHOSPHATASE 105 U/L (38-126); ANION GAP 6 (5-19); ASPARTATE AMINO TRANSFERASE 24 U/L (14-36); BILIRUBIN,DIRECT 0.1 mg/dL (0.0-0.4); BILIRUBIN,TOTAL 0.8 mg/dL (0.2-1.3); BLOOD UREA NITROGEN 6 mg/dL (7-20); CARBON DIOXIDE 24 mmol/L (22-30); CHLORIDE 107 mmol/L (98-107); GLUCOSE 70 mg/dL (75-110); POTASSIUM 4.4 mmol/L (3.6-5.0); SODIUM 137.2 mmol/L (137-145); TOTAL PROTEIN 6.2 g/dL (6.3-8.2)
[2018-07-19] MEDS: SENNOSIDES/DOCUSATE 8.6-50 MG 1 EACH TABLET PO SCH (09:08)
[2018-07-19] MEDS: ENOXAPARIN SODIUM INJ 40 MG/0.4 ML DISP.SYRIN SUBCUT SCH ×2 (09:08→22:03)
[2018-07-19] MEDS: DOCUSATE SODIUM 100 MG CAPSULE PO SCH ×2 (09:08→17:43)
[2018-07-19] MEDS: FAMOTIDINE 20 MG TABLET PO SCH ×2 (09:08→22:03)
[2018-07-19] MEDS: FERROUS SULFATE 325 MG TABLET PO SCH ×2 (09:08→17:43)
[2018-07-19] MEDS: PRENATAL VITAMIN W DHA CAPSULE PO SCH (09:08)
--- NOTE | 2018-07-19 11:12 | PDOC PROGRESS REPORT ---
Subjective-OB Progress Note for:: 07/19/18 Physical Exam (OB) Vital Signs: Temp Pulse Resp BP Pulse Ox 98.1 F 62 16 115/72 98 07/19/18 07:40 07/19/18 07:40 07/19/18 07:40 07/19/18 07:40 07/19/18 07:40 Intake & Output 07/18/18 07/19/18 07/20/18 06:59 06:59 06:59 Intake Total 608 400 Balance 608 400 Weight 86.5 kg - PIH/Pre-Eclampsia DTR's: 2 + Clonus: Negative Headache: Absent Epigastric Pain: No Visual Changes: No - Lochia Lochia Amount: Small 10-25 ml Lochia Color: Rubra/Red - Abdomen Description: Soft Hernia Present: No Bowel Sounds: Normoactive Flatus Presence: Present Stool: No Fundal Description: Firm, Midline Fundal Height: u/u - u/2 Objective-Diagnostic Laboratory: 07/19/18 07:05 07/19/18 07:05 07/19/18 07/19/18 07:05 07:05 WBC 8.0 RBC 3.63 L Hgb 8.8 L Hct 27.2 L MCV 75 L MCH 24.1 L MCHC 32.2 RDW 15.0 H Plt Count 249 Sodium 137.2 Potassium 4.4 Chloride 107 Carbon Dioxide 24 Anion Gap 6 BUN 6 L Creatinine 0.64 Est GFR ( Amer) > 60 Est GFR (Non-Af Amer) > 60 Glucose 70 L Calcium 9.0 Total Bilirubin 0.8 AST 24 ALT 26 Alkaline Phosphatase 105 Total Protein 6.2 L Albumin 3.0 L
[2018-07-20] MEDS: IBUPROFEN 800 MG TABLET PO SCH ×2 (05:16→14:17)
[2018-07-20 08:48] VITALS: BP 118/68
[2018-07-20] MEDS: SENNOSIDES/DOCUSATE 8.6-50 MG 1 EACH TABLET PO SCH (09:36)
[2018-07-20] MEDS: ENOXAPARIN SODIUM INJ 40 MG/0.4 ML DISP.SYRIN SUBCUT SCH (09:36)
[2018-07-20] MEDS: FERROUS SULFATE 325 MG TABLET PO SCH ×2 (09:36→17:52)
[2018-07-20] MEDS: PRENATAL VITAMIN W DHA CAPSULE PO SCH (09:36)
[2018-07-20] MEDS: FAMOTIDINE 20 MG TABLET PO SCH (09:36)
[2018-07-20] MEDS: DOCUSATE SODIUM 100 MG CAPSULE PO SCH ×2 (09:36→17:52)
--- NOTE | 2018-07-20 10:54 | PDOC DISCHARGE SUMMARY ---
Final Diagnosis Discharge Date: 07/20/18 - Final Diagnosis (1) DVT complicating Is this a current diagnosis for this admission?: No (2) Delivery normal Is this a current diagnosis for this admission?: Yes Discharge Data - Discharge Medication Prescriptions: Ibuprofen [Motrin 800 mg Tablet] 800 mg PO Q8 #60 tablet Home Medications: Albuterol Sulfate [Proair HFA Inhalation Aerosol 8.5 gm MDI] 2 puff IH Q4H PRN # 1 mdi 12/15/17 Enoxaparin Sodium [Lovenox Inj 40 mg/0.4 ml Disp.syrin] 40 mg SQ BID 04/30/18 Prenat 115/Iron Fum/Folic/Dss [ 19 Tablet] 1 tab PO DAILY 04/30/18 Ferrous Sulfate [Feosol 325 mg Tablet] 325 mg PO BID tablet 07/20/18 Ibuprofen [Motrin 800 mg Tablet] 800 mg PO Q8 #60 tablet 07/20/18 Reason(s) for Admission: Induction of Labor Procedures: NST Intrapartum Procedure(s): Spontaneous Vaginal Delivery - Diagnosis Test Laboratory: Temp Pulse Resp BP Pulse Ox 97.6 F 88 18 115/72 100 07/20/18 07:54 07/20/18 07:54 07/20/18 07:54 07/20/18 07:54 07/20/18 07:54 07/18/18 07/18/18 07/19/18 07:08 07:12 07:05 RBC 4.10 3.63 L Hgb 9.9 L 8.8 L Hct 30.7 L 27.2 L Urine Opiates Screen NEGATIVE - Discharge information/Instructions Discharge Activity: Balance Activity w/Rest, Pelvic Rest Discharge Diet: Regular Disposition: HOME, SELF-CARE Follow up with: [facility] in: 3, Weeks
== END 2018-07-20 18:20 | disposition home or self-care (01) | DRG 807 ==
LOC: LR 07:01 → 2S 18:15
PROVIDERS: ADMIT Obstetrics & Gynecology; ATTEND Obstetrics & Gynecology
PROC: 10E0XZZ Delivery of Products of Conception, External Approach (ICD-10-PCS; principal; 2018-07-18)
PROC: 3E033VJ Introduction of Other Hormone into Peripheral Vein, Percutaneous Approach (ICD-10-PCS; 2018-07-18)
PROC: 10907ZC Drainage of Amniotic Fluid, Therapeutic from Products of Conception, Via Natural or Artificial Opening (ICD-10-PCS; 2018-07-18)
DX: O99.824 Streptococcus B carrier state complicating childbirth (principal); Z37.0 Single live birth; O36.5990 Maternal care for other known or suspected poor fetal growth, unspecified trimester, not applicable or unspecified; O69.1XX0 Labor and delivery complicated by cord around neck, with compression, not applicable or unspecified; O99.52 Diseases of the respiratory system complicating childbirth; O99.344 Other mental disorders complicating childbirth; J45.909 Unspecified asthma, uncomplicated; F32.9 Major depressive disorder, single episode, unspecified; Z86.718 Personal history of other venous thrombosis and embolism; Z79.02 Long term (current) use of antithrombotics/antiplatelets; Z88.8 Allergy status to other drugs, medicaments and biological substances; Z91.013 Allergy to seafood; Z3A.38 38 weeks gestation of pregnancy
CPT/HCPCS: 36415; 80053; 80307; 85025; 85027; 86592; 86850; 86900; 86901; 88307; J1650; J2540; J2590; J3010; J3490

== ENCOUNTER → 2018-10-10 | Outpatient (CLI) | payer MEDICAID ==
--- NOTE | 2018-10-10 18:17 | RADIOLOGY REPORT (SQ) ---
EXAM DESCRIPTION: CHEST 2 VIEWS COMPLETED DATE/TIME: 10/10/2018 5:42 pm REASON FOR STUDY: R05 COUGH COMPARISON: 11/13/2016. EXAM PARAMETERS: NUMBER OF VIEWS: two views TECHNIQUE: Digital Frontal and Lateral radiographic views of the chest acquired. RADIATION DOSE: NA LIMITATIONS: none FINDINGS: LUNGS AND PLEURA: No opacities, masses or pneumothorax. No pleural effusion. MEDIASTINUM AND HILAR STRUCTURES: No masses or contour abnormalities. HEART AND VASCULAR STRUCTURES: Heart normal size. No evidence for failure. BONES: No acute findings. HARDWARE: None in the chest. OTHER: No other significant finding. IMPRESSION: NO ACUTE RADIOGRAPHIC FINDING IN THE CHEST. TECHNICAL DOCUMENTATION: JOB ID: [id number] [employer]- All Rights Reserved Reading location - IP/workstation name: [email or web address]
== END ==
LOC: RAD 17:21
PROVIDERS: ATTEND Nurse Practitioner Family
DX: R05 Cough (principal)
CPT/HCPCS: 71046

== ENCOUNTER → 2018-11-08 | Outpatient (CLI) | payer MEDICAID ==
--- NOTE | 2018-11-08 10:01 | RADIOLOGY REPORT (SQ) ---
EXAM DESCRIPTION: MRI HEAD COMBO COMPLETED DATE/TIME: 11/08/2018 9:07 am REASON FOR STUDY: PITUITARY MASS (E23.7) E23.7 DISORDER OF PITUITARY GLAND, UNSPECIFIED COMPARISON: MRI pituitary 11/29/2011 TECHNIQUE: Multiplanar imaging includes noncontrasted T1, T2, FLAIR, diffusion with ADC map and post gadolinium contrast T1 sequences. Images stored on PACS. CONTRAST TYPE AND DOSE: 15 mL Dotarem. RENAL FUNCTION: None required. The patient is less than 50 years old. LIMITATIONS: None. FINDINGS: PITUITARY FOSSA: On the current study, the pituitary gland is 14 mm AP x 15 mm transverse by 7 mm craniocaudad. In the superior aspect anterior lobe pituitary, a 4 to 5 mm nodule is present, enhancing to a lesser degree than the remainder of the pituitary gland. This is best shown on thin section postcontrast T1 sagittal image 8 and coronal image 7, and likely represents a pituitary micro adenoma (previous pituitary MR imaging in 2011 demonstrated an anterior lobe pituitary nodule replaci ng the anterior lobe pituitary gland measuring about 12 x 12 mm in size). On the current study, neural hypothesis is identified on sagittal T1 precontrast image 7. There is m idline infundibulum. No cavernous sinus abnormalities. Optic chiasm unremarkable. CSF SPACES: Normal in size and contour. No hemorrhage. CEREBRUM: Sulci and gyri normal in size and contour. Normal white matter signal on FLAIR imaging. No evidence of hemorrhage, mass, or extraaxial fluid collection. No abnormal enhancement post contrast. POSTERIOR FOSSA: No signal alteration. No hemorrhage. No edema, masses, or mass effect. Internal jono tory canals, cerebellopontine angles, mastoids normal. No enhancing lesions. No abnormal enhancement post contrast. DIFFUSION IMAGING: Negative for acute or subacute infarction. ORBITS: No masses. Globes normal. PARANASAL SINUSES: No fluid levels. Mucosa normal. OTHER: No other significant finding. IMPRESSION: 4 to 5 mm pituitary microadenoma, anterior lobe pituitary gland. EVIDENCE OF ACUTE STROKE: NO. TECHNICAL DOCUMENTATION: JOB ID: [id number] [employer]- All Rights Reserved Reading location - IP/workstation name: [email or web address] PING PONG [email or web address]
== END ==
LOC: RAD 07:55
PROVIDERS: ATTEND Student in an Organized Health Care Education/Training Program
DX: E23.7 Disorder of pituitary gland, unspecified (principal)
CPT/HCPCS: 70553; A9576

== ENCOUNTER 2018-12-25 14:06 | Emergency (ER) | payer SELFPAY ==
--- NOTE | 2018-12-25 14:30 | ER Document Report ---
HPI - HPI Time Seen by Provider: 12/25/18 14:28 Pain Level: 5 Notes: 28-year-old female presents to the ED for evaluation of left thumb pain after she slammed the car door on her thumb 2 days ago. Reports pain is 8 out of 10, throbbing sharp aching. No stridor [id number] ibuprofen and Tylenol without relief. Denies any numbness or tingling to fingers or hands. Denies any other injury. Worse with time, nothing makes better. has not tried elevation, icing or heat. Denies any other area of injury. Denies fevers, chills, cp, sob, weakness, bowel or bladder dysfunction, saddle anesthesia, numbness or tingling in bilateral upper or lower extremities equally, muscle paralysis, weakness in bilateral upper or lower extremities equally or rash. - REPRODUCTIVE Reproductive: DENIES: : Past Medical History - General Information source: Patient - Social History Smoking Status: Never Smoker Family History: Reviewed & Not Pertinent - Past Medical History Cardiac Medical History: Reports: Hx DVT Pulmonary Medical History: Reports: Hx Asthma, Hx Bronchitis Renal/ Medical History: Reports: Hx Kidney Stones. Denies: Hx Peritoneal Dialysis - Immunizations Hx Diphtheria, Pertussis, Tetanus Vaccination: Yes Hx Pneumococcal Vaccination: 04/10/14 Vertical Provider Document - CONSTITUTIONAL Agree With Documented VS: Yes Notes: PHYSICAL EXAMINATION: GENERAL: Well-appearing, well-nourished and in no acute distress. HEAD: Atraumatic, normocephalic. EYES: Pupils equal round and reactive to light, extraocular movements intact, conjunctiva are normal. ENT: Nares patent, oropharynx clear without exudates. Moist mucous membranes. NECK: Normal range of motion, supple without lymphadenopathy LUNGS: Breath sounds clear to auscultation bilaterally and equal. No wheezes rales or rhonchi. HEART: Regular rate and rhythm without murmurs ABDOMEN: Soft, nontender, nondistended abdomen. No guarding, no rebound. No masses appreciated. Female : deferred Musculoskeletal: Normal range of motion, no pitting or edema. No cyanosis. pain to 1st left phalange at DIP. no pain to wrist with flexion, extension, inversion, eversion of wrist. digits in right and left with full aprom.. 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 Snuffbox tenderness negative on left. radial pulses + 2 BUE equally. Negative kanavels sign. No open wounds or drainage from wrist. No vascular compromise.No body crepitus or focal area of TTP. no pain with opposition, flexion, extension, abduction and adduction on left. Motor and sensory function of ulnar, radial, medial nerves intact bilaterally and equally. NEUROLOGICAL: Cranial nerves grossly intact. Normal speech, normal gait. Normal sensory, motor exams PSYCH: Normal mood, normal affect. SKIN: Warm, Dry, normal turgor, no rashes or lesions noted. 22-like and then on the other half of a flight - INFECTION CONTROL TRAVEL OUTSIDE OF THE [place] IN LAST 30 DAYS: No Course - Re-evaluation Re-evalutation: 12/25/18 15:06 28-year-old female presents for evaluation of left thumb after slamming in a car times 2 days ago, afebrile slightly hypertensive however patient is in pain. X- ray of left thumb negative for any acute fractures or dislocations. Consent by patient given to place left thumb spica,. cms intact, sensory motor function intact in bilateral upper extremities prior to splint application fiberglass splint placed without incident. cms intact 20 minutes after splint application. Splint is in good alignment. Bilateral upper extremities with motor and sensory function intact 20 minutes after application. Pt stated that splint felt comfortable. This patient in thumb spica, follow-up with customer management specialist within 3-5 days, alternate between ibuprofen and 6 pills of [place] 5 mg 325 given to, do not drive, operate heavy machinery or drink alcohol while taking [place] as it can cause sedation and impairment of cognitive function. Apply heat 20 minutes on 20 minutes off several times a day. Follow-up with primary care provider within the next 3-5 days as well. work note given. Estimate there is LOW risk for OPEN FRACTURE, COMPARTMENT SYNDROME, TENDON RUPTURE, ACUTE NEUROVASCULAR INJURY, or RETAINED FOREIGN BODY, thus I consider the discharge disposition reasonable. Also, there is no evidence or peritonitis, sepsis, or toxicity. I have reevaluated this patient multiple times and no significant life threatening changes are noted. The patient and I have discussed the diagnosis and risks, and we agree with discharging home with close follow-up with the understanding that symptoms and presentations can change. We also discussed returning to the Emergency Department immediately if new or worsening symptoms occur. We have discussed the symptoms which are most concerning (e.g., changing or worsening pain, fever, numbness, weakness, cool or painful digits) that necessitate immediate return. - Vital Signs Vital signs: Temp Pulse Resp BP Pulse Ox 97.6 F 95 18 160/84 H 98 12/25/18 14:11 12/25/18 14:11 12/25/18 14:11 12/25/18 14:11 12/25/18 14:11 Discharge - Discharge Clinical Impression: Left thumb sprain Qualifiers: Encounter type: initial encounter Sprain of finger site: unspecified site Qualified Code(s): S63.602A - Unspecified sprain of left thumb, initial encounter Condition: Stable Disposition: HOME, SELF-CARE Instructions: Sprained Finger ([facility]) Additional Instructions: Sprained Thumb You have a sprain of the thumb. A sprain is an over-stretching or tearing of the ligaments which guard the joint. The injury may require a few weeks of protection while it heals. The usual treatment is ice packs, elevation, and rest of the thumb. A splint is usually placed. Because the thumb is more vulnerable to re-injury than the fingers, it often must be protected by a heavy splint for a surprisingly long time. Healing can take three to six weeks. Your physician has assessed the seriousness of the ligament injury in your thumb and has outlined the initial treatment plan. Understand that this treatment may change, depending on how your thumb progresses. If further exams were recommended, it's important that you follow up as instructed. Call the doctor any time if swelling or pain becomes severe, or if numbness develops in the thumb. You were placed in a thumb spica, do not drive, drink or operate heavy machinery while taking [place] as an cause sedation and impairment of cognitive function, only take in severe pain. Keep thumb elevated, compression dressing on an alternate between icing and heat. Follow-up with customer management specialist if needed. Take ibuprofen as needed Prescriptions: Ibuprofen [Ibu] 600 mg PO Q6HP PRN #20 tablet PRN Reason: Forms: Return to Work Referrals: KAROLINA FONSECA MD [NO LOCAL MD] - Follow up as needed RAEANN MORENO DO [ACTIVE STAFF] - Follow up in 3-5 days
[2018-12-25] MEDS ORDERED: HYDROCODONE/ACETAMINOPHEN 5-325 MG (6 TAB/ER DISP) PO PRN (14:59)
--- NOTE | 2018-12-25 14:59 | RADIOLOGY REPORT (SQ) ---
EXAM DESCRIPTION: FINGER LEFT COMPLETED DATE/TIME: 12/25/2018 2:51 pm REASON FOR STUDY: thumb, slammed in car door x 2 days ago COMPARISON: None. NUMBER OF VIEWS: Three views. TECHNIQUE: AP, lateral, and oblique images acquired of the left thumb. LIMITATIONS: None. FINDINGS: MINERALIZATION: Normal. BONES: No acute fracture or dislocation. No worrisome bone lesions. SOFT TISSUES: No soft tissue swelling. No foreign body. OTHER: No other significant finding. IMPRESSION: NO RADIOGRAPHIC EVIDENCE OF ACUTE INJURY. TECHNICAL DOCUMENTATION: JOB ID: [id number] [employer]- All Rights Reserved Reading location - IP/workstation name: [email or web address]
[2018-12-25 15:18] VITALS: BP 131/78
== END 2018-12-25 15:13 | disposition home or self-care (01) ==
LOC: ER 14:06
DX: S63.602A Unspecified sprain of left thumb, initial encounter (principal); M79.645 Pain in left finger(s); W23.1XXA Caught, crushed, jammed, or pinched between stationary objects, initial encounter; Z86.718 Personal history of other venous thrombosis and embolism; Z87.442 Personal history of urinary calculi
CPT/HCPCS: 99283

== ENCOUNTER 2019-05-15 15:59 | Emergency (ER) | payer MEDICAID ==
[2019-05-15 16:06] VITALS: BP 139/90
[2019-05-15] MEDS ORDERED: LIDOCAINE 2% VISCOUS SOLN 20 ML UDCUP PO ONE (16:19)
--- NOTE | 2019-05-15 16:45 | ER Document Report ---
HPI - HPI Time Seen by Provider: 05/15/19 16:37 Pain Level: 5 Notes: Patient is a 28-year-old female no significant past medical history who presents complaining of dental pain to #2 as well as #30 over the past several days. Patient states that she was evaluated by her dentist who said that she needs her teeth pulled and is not sure if there is truly an infection in there or not, but they gave her 800 mg Motrin's. Patient states that she needs Oxy so she came he re because the dentist will not prescribe it. She has not noticed any obvious abscess or drainage. Patient is aware that she has poor dentition. No other concerns or complaints. Pain does not radiate. Denies any headache, fever, head injury, neck pain, URI, sore throat, chest pain, palpitations, syncope, cough, shortness of breath, wheeze, dyspnea, abdominal pain, nausea/vomiting/diarrhea, urinary retention, dysuria, hematuria, or rash. - ROS Systems Reviewed and Negative: Yes All other systems reviewed and negative - REPRODUCTIVE Reproductive: DENIES: : Past Medical History - Social History Smoking Status: Current Every Day Smoker Family History: Reviewed & Not Pertinent - Past Medical History Cardiac Medical History: Reports: Hx DVT Pulmonary Medical History: Reports: Hx Asthma, Hx Bronchitis Renal/ Medical History: Reports: Hx Kidney Stones. Denies: Hx Peritoneal Dialysis - Immunizations Hx Diphtheria, Pertussis, Tetanus Vaccination: Yes Hx Pneumococcal Vaccination: 04/10/14 Vertical Provider Document - CONSTITUTIONAL Agree With Documented VS: Yes Notes: PHYSICAL EXAMINATION: GENERAL: Well-appearing, well-nourished and in no acute distress. HEAD: Atraumatic, normocephalic. EYES: Pupils equal round and reactive to light, extraocular movements intact, sclera anicteric, conjunctiva are normal. ENT: EAC clear b/l. TM's intact b/l without erythema, fluid, or perforation. Nares patent and without discharge. oropharynx clear without exudates. No tonsilar hypertrophy or erythema. Moist mucous membranes. No sinus tenderness. Uvula midline. No palatine shift. No tongue protrusion. No respiratory compromise. Mouth: Poor dentition. + mild decay and mild gingivitis. No obvious abscess or discharge noted. No facial swelling. + tenderness to tooth #2/30. NECK: Normal range of motion, supple without lymphadenopathy. No rigidity/meningismus. LUNGS: Breath sounds clear to auscultation bilaterally and equal. No wheezes rales or rhonchi. HEART: Regular rate and rhythm without murmurs, rubs, gallops. NEUROLOGICAL: Cranial nerves grossly intact. Normal speech, normal gait. Normal sensory, motor exams PSYCH: Normal mood, normal affect. SKIN: Warm, Dry, normal turgor, no rashes or lesions noted. - INFECTION CONTROL TRAVEL OUTSIDE OF THE [place] IN LAST 30 DAYS: No Course - Re-evaluation Re-evalutation: 05/15/19 16:43 Patient is an afebrile, well-hydrated, 28-year-old male who presents to the ED with dental pain, suspect nerve root etiology versus infection. Vitals are acceptable. PE is otherwise unremarkable. No I&D, labs, or imaging warranted at this time based on H&P. Viscous lidocaine dispensed today. I will send her home with a prescription for penicillin. Reviewed with patient I will not be prescribing narcotics for this dental pain. Low suspicion for any meningitis, sepsis, peritonsillar/pharyngeal abscess, respiratory compromise, Jose's, temporal arteritis, or other emergent systemic condition at this time. Patient is aware this condition can change from initial presentation and she needs to monitor symptoms closely. Conservative measures otherwise for symptoms. Call to schedule an appointment with a dentist for further evaluation and management. Recheck with your PCM this week as well. Return to the ED with any worsening/concerning symptoms otherwise as reviewed in discharge. Patient is in agreement. - Vital Signs Vital signs: Temp Pulse Resp BP Pulse Ox 98.4 F 94 14 139/90 H 99 05/15/19 16:05 05/15/19 16:05 05/15/19 16:05 05/15/19 16:05 05/15/19 16:05 Discharge - Discharge Clinical Impression: Pain, dental Condition: Stable Disposition: HOME, SELF-CARE Instructions: Penicillin V K ([facility]), Toothache ([facility]) Additional Instructions: Flora and floss twice daily Maintain fluid intake Take antibiotics as directed Mouthwash, salt water gargles, peroxide rinse as needed Tylenol/ibuprofen as needed Recheck with PCM this week Call today/tomorrow and schedule an appointment with your dentist for further evaluation Return to the ED with any worsening symptoms and/or development of fever, headache, facial swelling, swelling of lips/tongue/throat, trouble swallowing, drooling, hoarseness, neck pain/stiffness, chest pain, palpitations, syncope, shortness of breath, trouble breathing, abdominal pain, n/v/d, numbness/tingling, or other worsening symptoms that are concerning to you. Prescriptions: Penicillin V Potassium [Penicillin Vk 250 mg Tablet] 500 mg PO BID #40 tablet Forms: Elevated Blood Pressure, Smoking Cessation Education Referrals: [facility] [Provider Group] - Follow up as needed
== END 2019-05-15 17:10 | disposition home or self-care (01) ==
LOC: ER 15:59
DX: K08.9 Disorder of teeth and supporting structures, unspecified (principal); F17.200 Nicotine dependence, unspecified, uncomplicated; Z86.718 Personal history of other venous thrombosis and embolism
CPT/HCPCS: 96374; 99282; J3490

== ENCOUNTER 2019-05-17 07:13 | Emergency (ER) | payer MEDICAID ==
[2019-05-17 07:52] VITALS: BP 138/84
== END 2019-05-17 08:40 | disposition left against medical advice (07) ==
LOC: ER 07:13
DX: Z53.21 Procedure and treatment not carried out due to patient leaving prior to being seen by health care provider (principal)

== ENCOUNTER → 2019-05-17 | Outpatient (CLI) | payer MEDICAID ==
[2019-05-17 13:03] LABS: BACTERIA (WET MOUNT) 3+ BACTERIA SEEN; EPITHELIALS (WET MOUNT) 4+ EPITHELIALS SEEN; RBCS (WET MOUNT) 2+ RBCS SEEN; T.VAGINALIS (WET MOUNT) NO TRICHOMONAS SEEN; WBCS (WET MOUNT) 3+ WBCS SEEN; YEAST (WET MOUNT) NO YEAST SEEN
[2019-05-17 14:34] LABS: CHLAM PCR NOT DETECTED (NOT DETECT)
== END ==
LOC: LAB 12:58
PROVIDERS: ATTEND Nurse Practitioner Family
DX: N89.8 Other specified noninflammatory disorders of vagina (principal); R30.0 Dysuria
CPT/HCPCS: 87086; 87088; 87210; 87491; 87591

== ENCOUNTER 2019-05-29 08:58 | Emergency (ER) | payer MEDICAID ==
[2019-05-29 09:36] LABS: APPEARANCE,URINE SLIGHTLY-CLOUDY; BILIRUBIN,URINE NEGATIVE (NEGATIVE); COLOR,URINE YELLOW; GLUCOSE, URINE NEGATIVE (NEGATIVE); KETONES,URINE NEGATIVE (NEGATIVE); LEUKOCYTE ESTERASE,URINE NEGATIVE (NEGATIVE); NITRITE,URINE NEGATIVE (NEGATIVE); PROTEIN,URINE NEGATIVE (NEGATIVE); UROBILINOGEN,URINE NEGATIVE mg/dL (<2.0)
--- NOTE | 2019-05-29 09:42 | ER Document Report ---
ED Medical Screen (RME) - General Chief Complaint: Vaginal Discharge Stated Complaint: RASH, VAGINAL IRRITATION Time Seen by Provider: 05/29/19 09:40 Primary Care Provider: [facility] [Provider Group] - Follow up tomorrow Mode of Arrival: Ambulatory Information source: Patient Notes: This 28-year-old female presents the emergency department with complaints of rash on her buttocks in the vaginal area with complaints of nausea vomiting for the past 2 weeks. She reports she feels like she is . Patient has not had a menses for 2 months. Recently delivered a child 10 months ago. She reports she got when she had her IUD in. Denies fever diarrhea. Reports she is never had a STD. 2 months ago she was evaluated for an STD here treated prophylactically but results were negative. Denies vaginal discharge. Denies pain with void. I have greeted and performed a rapid initial assessment of this patient. A comprehensive ED assessment and evaluation of the patient, analysis of test results and completion of the medical decision making process will be conducted by additional ED providers. Dictation of this chart was performed using voice recognition software; therefore, there may be some unintended grammatical errors. TRAVEL OUTSIDE OF THE [place] IN LAST 30 DAYS: No - Related Data Allergies/Adverse Reactions: iodine Allergy (Verified 05/29/19 08:59) shrimp Allergy (Verified 05/29/19 08:59) Past Medical History - Social History Frequency of alcohol use: Occasional Drug Abuse: None - Past Medical History Cardiac Medical History: Reports: Hx DVT Pulmonary Medical History: Reports: Hx Asthma, Hx Bronchitis Renal/ Medical History: Reports: Hx Kidney Stones. Denies: Hx Peritoneal Dialysis - Immunizations Hx Diphtheria, Pertussis, Tetanus Vaccination: Yes Physical Exam - Vital signs Vitals: Temp Pulse Resp BP Pulse Ox 97.8 F 87 20 114/67 97 05/29/19 09:04 05/29/19 09:04 05/29/19 09:04 05/29/19 09:04 05/29/19 09:04 Course - Vital Signs Vital signs: Temp Pulse Resp BP Pulse Ox 98.1 F 85 16 116/68 98 05/29/19 11:46 05/29/19 11:46 05/29/19 11:46 05/29/19 11:46 05/29/19 11:46 Doctor's Discharge - Discharge Clinical Impression: Rash Condition: Stable Disposition: HOME, SELF-CARE Additional Instructions: Rash Your rash is nonspecific meaning it is not definite what is causing it. We have done culture tests looking for possible causes of the rash. It does not look like a typical herpes infection, although it could be. We are testing for herpes and are going to give you a prescription for an antiviral/herpes medication to take for 1 week, just in case your test comes back positive. We have tested for other causes for infection as well. Herpes Simplex You have been diagnosed as having a herpes virus infection. The herpes ("cold sore") virus usually infects the areas around the mouth. However, it can cause infection on any skin surface. It's particularly dangerous if infection occurs in the eye. On the initial infection, herpes blisters erupt over a large area. There is usually fever and aching. This infection takes about 14 days to resolve. After the initial infection, herpes sores can erupt on small areas (usually the lips), then heal in about a week. Sunburn, fever, local irritation, or even emotions can provoke a "fever blister" attack of herpes. Initial herpes infections can be treated with medication if severe. Subsequent attacks are usually given only local care to reduce symptoms; however, the physician may decide to prescribe anti-viral medication if your case warrants it. Call the doctor if you are worsening in any way. Famciclovir Famciclovir (Famvir) is used to treat infections caused by the Herpes family of viruses. It's usually prescribed for treatment of shingles (herpes zoster). Famciclovir is most effective if started at the first sign of the viral outbreak. It can decrease the severity and duration of symptoms. Take the full recommended course. Occasionally, mild nausea, diarrhea, or headaches may occur. Call the doctor if you develop wheezing, itching, rash, shortness of breath, or lightheadedness. In the meantime, keep the area where the rash is located clean and dry, cleanse with a mild soap and water daily. You can apply some Bacitracin antibacterial cream that is available [id number] twice a day. I would recommend you make an appointment to see your [facility] doctors in the next day or 2 in the office to have them see what the rash looks like now and they can follow-up the lab results as well. I will also be following up with the lab results and we will let you know if any of the test came back positive. FOLLOW-UP CARE: If you have been referred to a physician for follow-up care, call the physicians office for an appointment as you were instructed or within the next two days. If you experience worsening or a significant change in your symptoms, notify the physician immediately or return to the Emergency Department at any time for re-evaluation. Prescriptions: Famciclovir 500 mg PO TID #20 tablet Referrals: [facility] [Provider Group] - Follow up tomorrow
--- NOTE | 2019-05-29 11:09 | ER Document Report ---
ED GI/ - General Chief Complaint: Vaginal Discharge Stated Complaint: RASH, VAGINAL IRRITATION Time Seen by Provider: 05/29/19 09:40 Primary Care Provider: [facility] [Provider Group] - Follow up tomorrow Mode of Arrival: Ambulatory Notes: Patient is here because she has a rash in her pelvic region. She was seen at a local urgent care about 2 weeks ago for a vaginal discharge and diagnosed as having a bacterial vaginosis and was treated for all possible causes for pelvic infection including getting an antibiotic injection. 3 or 4 days ago she developed a rash in the pelvic/genital area, on the right side of her butt cheek posterior to the vaginal introitus. Has never had this before. Never had her diagnosed as having herpes. Patient says she is had one sexual partner since she was 21 years of age. Also, concerned she may be because she had her IUD removed 2 months ago and has not had a cycle since it was removed. TRAVEL OUTSIDE OF THE [place] IN LAST 30 DAYS: No - Related Data Allergies/Adverse Reactions: iodine Allergy (Verified 05/29/19 08:59) shrimp Allergy (Verified 05/29/19 08:59) Past Medical History - General Information source: Patient - Social History Smoking Status: Current Every Day Smoker Frequency of alcohol use: Occasional Drug Abuse: None Family History: Reviewed & Not Pertinent Patient has suicidal ideation: No Patient has homicidal ideation: No - Past Medical History Cardiac Medical History: Reports: Hx DVT Pulmonary Medical History: Reports: Hx Asthma, Hx Bronchitis Renal/ Medical History: Reports: Hx Kidney Stones - Immunizations Hx Diphtheria, Pertussis, Tetanus Vaccination: Yes Hx Pneumococcal Vaccination: 04/10/14 Review of Systems - Review of Systems Notes: CONSTITUTIONAL : Denies fever. CARDIOVASCULAR: Denies chest pain. RESPIRATORY: Denies cough, chest congestion, or shortness of breath. GASTROINTESTINAL: Denies abdominal pain or nausea, vomiting, or diarrhea. GENITOURINARY: Denies difficulty or painful urinating, urinary frequency, blood in urine. No menstrual cycle for 2 months. Physical Exam - Vital signs Vitals: Temp Pulse Resp BP Pulse Ox 97.8 F 87 20 114/67 97 05/29/19 09:04 05/29/19 09:04 05/29/19 09:04 05/29/19 09:04 05/29/19 09:04 Interpretation: Normal Notes: PHYSICAL EXAMINATION: GENERAL: Well-appearing, no acute distress. HEAD: Atraumatic, normocephalic. NECK: Normal range of motion, supple. LUNGS: Breath sounds clear and equal bilaterally. HEART: Regular rate and rhythm without murmurs heard. ABDOMEN: Soft, nontender. No guarding or rebound or masses felt. Genitourinary: Patient has a single cutaneous lesion of the right buttock cheek primarily in the unexposed area. The lesion is about 2 cm diameter and circular. It appears to be denuded and raw and is tender to touch. I do not see any vesicles. I do not see any rash that looks like a herpes infection. There may be a second lesion on the patient's left vulvar region. No other lesions seen. I do not think this is herpes, but I am not really sure what it is and the patient is being advised to make an appointment to follow-up with her [facility] group here in [facility]. Speculum exam is unremarkable. Course - Re-evaluation Re-evalutation: 05/29/19 18:54 Even though the lesion present does not look like a herpes lesion to me at this time, I am going to treat the patient empirically with Famvir explaining to her that I would not want to have the results come back showing positive for herpes and not to start her on some medications. The medication is relatively benign. Patient has a [id number] but is not nursing that baby. - Vital Signs Vital signs: Temp Pulse Resp BP Pulse Ox 98.1 F 85 16 116/68 98 05/29/19 11:46 05/29/19 11:46 05/29/19 11:46 05/29/19 11:46 05/29/19 11:46 Discharge - Discharge Clinical Impression: Rash Condition: Stable Disposition: HOME, SELF-CARE Additional Instructions: Rash Your rash is nonspecific meaning it is not definite what is causing it. We have done culture tests looking for possible causes of the rash. It does not look like a typical herpes infection, although it could be. We are testing for herpes and are going to give you a prescription for an antiviral/herpes medication to take for 1 week, just in case your test comes back positive. We have tested for other causes for infection as well. Herpes Simplex You have been diagnosed as having a herpes virus infection. The herpes ("cold sore") virus usually infects the areas around the mouth. However, it can cause infection on any skin surface. It's particularly dangerous if infection occurs in the eye. On the initial infection, herpes blisters erupt over a large area. There is usually fever and aching. This infection takes about 14 days to resolve. After the initial infection, herpes sores can erupt on small areas (usually the lips), then heal in about a week. Sunburn, fever, local irritation, or even emotions can provoke a "fever blister" attack of herpes. Initial herpes infections can be treated with medication if severe. Subsequent attacks are usually given only local care to reduce symptoms; however, the physician may decide to prescribe anti-viral medication if your case warrants it. Call the doctor if you are worsening in any way. Famciclovir Famciclovir (Famvir) is used to treat infections caused by the Herpes family of viruses. It's usually prescribed for treatment of shingles (herpes zoster). Famciclovir is most effective if started at the first sign of the viral outbreak. It can decrease the severity and duration of symptoms. Take the full recommended course. Occasionally, mild nausea, diarrhea, or headaches may occur. Call the doctor if you develop wheezing, itching, rash, shortness of breath, or lightheadedness. In the meantime, keep the area where the rash is located clean and dry, cleanse with a mild soap and water daily. You can apply some Bacitracin antibacterial cream that is available [id number] twice a day. I would recommend you make an appointment to see your [facility] doctors in the next day or 2 in the office to have them see what the rash looks like now and they can follow-up the lab results as well. I will also be following up with the lab results and we will let you know if any of the test came back positive. FOLLOW-UP CARE: If you have been referred to a physician for follow-up care, call the physicians office for an appointment as you were instructed or within the next two days. If you experience worsening or a significant change in your symptoms, notify the physician immediately or return to the Emergency Department at any time for re-evaluation. Prescriptions: Famciclovir 500 mg PO TID #20 tablet Referrals: [facility] [Provider Group] - Follow up tomorrow
[2019-05-29 11:28] LABS: BACTERIA (WET MOUNT) 3+ BACTERIA SEEN; EPITHELIALS (WET MOUNT) 3+ EPITHELIALS SEEN; RBCS (WET MOUNT) FEW RBCS SEEN; T.VAGINALIS (WET MOUNT) NO TRICHOMONAS SEEN; WBCS (WET MOUNT) 3+ WBCS SEEN; YEAST (WET MOUNT) NO YEAST SEEN
[2019-05-29 11:47] VITALS: BP 116/68
[2019-05-29 12:58] LABS: CHLAM PCR NOT DETECTED (NOT DETECT)
== END 2019-05-29 11:46 | disposition home or self-care (01) ==
LOC: ER 08:58
DX: R21 Rash and other nonspecific skin eruption (principal); N89.8 Other specified noninflammatory disorders of vagina; F17.200 Nicotine dependence, unspecified, uncomplicated; J45.909 Unspecified asthma, uncomplicated
CPT/HCPCS: 36415; 81001; 81025; 86592; 87210; 87250; 87491; 87591; 99283

== ENCOUNTER 2019-06-30 13:41 | Emergency (ER) | payer MEDICAID ==
[2019-06-30] MEDS ORDERED: ONDANSETRON 4 MG TAB.RAPDIS PO ONE (15:02)
--- NOTE | 2019-06-30 15:03 | ER Document Report ---
ED Medical Screen (RME) - General Chief Complaint: Abdominal Pain Stated Complaint: ABDOMINAL PAIN Time Seen by Provider: 06/30/19 14:59 Primary Care Provider: SALLIE ZHONG DO [Primary Care Provider] - Follow up as needed Mode of Arrival: Ambulatory Information source: Patient Notes: Patient presents complaining of lower abdominal pain for the past 4 days that radiates to right lateral side. Patient does report some vaginal bleeding and states that she could be . Patient reports nausea. Patient denies any urinary symptoms hx: Kidney stones I have greeted and performed a rapid initial assessment of this patient. A comprehensive ED assessment and evaluation of the patient, analysis of test results and completion of the medical decision making process will be conducted by additional ED providers. TRAVEL OUTSIDE OF THE [place] IN LAST 30 DAYS: No - Related Data Allergies/Adverse Reactions: iodine Allergy (Verified 06/30/19 14:52) shrimp Allergy (Verified 06/30/19 14:52) Past Medical History - Past Medical History Cardiac Medical History: Reports: Hx DVT Pulmonary Medical History: Reports: Hx Asthma, Hx Bronchitis Renal/ Medical History: Reports: Hx Kidney Stones. Denies: Hx Peritoneal Dialysis - Immunizations Hx Diphtheria, Pertussis, Tetanus Vaccination: Yes Physical Exam - Vital signs Vitals: Temp Pulse Resp BP Pulse Ox 98.0 F 90 16 132/73 H 100 06/30/19 13:44 06/30/19 13:44 06/30/19 13:44 06/30/19 13:44 06/30/19 13:44 - Abdominal Tenderness: Tender - Lower pelvic, right lateral side Course - Vital Signs Vital signs: Temp Pulse Resp BP Pulse Ox 98.0 F 90 16 132/73 H 100 06/30/19 13:44 06/30/19 13:44 06/30/19 13:44 06/30/19 13:44 06/30/19 13:44 Doctor's Discharge - Discharge Referrals: SALLIE ZHONG DO [Primary Care Provider] - Follow up as needed
[2019-06-30 16:57] LABS: ABSOLUTE BASOPHILS # (AUTO) 0.1 10^3/uL (0.0-0.2); ABSOLUTE EOSINOPHILS # (AUTO) 0.4 10^3/uL (0.0-0.6); ABSOLUTE LYMPHOCYTES (AUTO) 2.1 10^3/uL (0.5-4.7); ABSOLUTE MONOCYTES (AUTO) 0.6 10^3/uL (0.1-1.4); ABSOLUTE NEUT (AUTO) 6.6 10^3/uL (1.7-8.2); BASOPHILS % (AUTO) 0.7 % (0-2); EOSINOPHILS % (AUTO) 4.6 % (0-6); HEMATOCRIT 37.6 % (36.0-47.0); HEMOGLOBIN 11.8 g/dL (12.0-15.5); LYMPHOCYTES % (AUTO) 21.3 % (13-45); MEAN CORPUSCULAR HGB CONC 31.4 g/dL (32.0-36.0); MEAN CORPUSCULAR VOLUME 76 fl (80-97); MONOCYTES % (AUTO) 6.6 % (3-13); PLATELET COUNT 331 10^3/uL (150-450); RED BLOOD COUNT 4.92 10^6/uL (3.72-5.28); RED CELL DISTRIBUTION WIDTH 14.9 % (11.5-14.0); SEGMENTED NEUTROPHILS % (AUTO) 66.8 % (42-78); TOTAL CELLS COUNTED % (AUTO) 100 %; WHITE BLOOD COUNT 9.8 10^3/uL (4.0-10.5)
[2019-06-30] MEDS ORDERED: ONDANSETRON 4 MG TAB.RAPDIS ONE (17:04)
[2019-06-30 17:15] LABS: ALBUMIN 4.3 g/dL (3.5-5.0); ALKALINE PHOSPHATASE 57 U/L (38-126); ANION GAP 9 (5-19); ASPARTATE AMINO TRANSFERASE 23 U/L (14-36); BILIRUBIN,DIRECT 0.1 mg/dL (0.0-0.4); BILIRUBIN,TOTAL 0.6 mg/dL (0.2-1.3); BLOOD UREA NITROGEN 10 mg/dL (7-20); CALCIUM 9.9 mg/dL (8.4-10.2); CARBON DIOXIDE 28 mmol/L (22-30); CHLORIDE 104 mmol/L (98-107); GLUCOSE 84 mg/dL (75-110); POTASSIUM 4.3 mmol/L (3.6-5.0); TOTAL PROTEIN 7.3 g/dL (6.3-8.2)
[2019-06-30 17:38] LABS: AMORPHOUS SEDIMENT,URINE TRACE /HPF; APPEARANCE,URINE CLOUDY; BILIRUBIN,URINE NEGATIVE (NEGATIVE); COLOR,URINE YELLOW; GLUCOSE, URINE NEGATIVE (NEGATIVE); KETONES,URINE NEGATIVE (NEGATIVE); LEUKOCYTE ESTERASE,URINE NEGATIVE (NEGATIVE); NITRITE,URINE NEGATIVE (NEGATIVE); PROTEIN,URINE NEGATIVE (NEGATIVE); URINE SPECIFIC GRAVITY 1.025
--- NOTE | 2019-06-30 18:31 | ER Document Report ---
ED General - General Chief Complaint: Abdominal Pain Stated Complaint: ABDOMINAL PAIN Time Seen by Provider: 06/30/19 14:59 Primary Care Provider: SALLIE ZHONG DO [NO LOCAL MD] - Follow up as needed Mode of Arrival: Ambulatory Notes: Patient presents complaining of lower abdominal pain for the past 4 days that radiates to right lateral side. Patient does report some vaginal bleeding and states that she could be . Patient reports nausea. Patient denies any urinary symptoms hx: Kidney stones MY HPI: Patient is a 28-year-old female G5, P4 presents to the emergency department for lower abdominal cramping and vaginal bleeding for the last 4 days. Patient states her last menstrual cycle was approximately month ago. States she thought she was getting her period but then had extreme lower abdominal cramping which is what presented her to the emergency room. Patient states she has just been using panty liners. Patient states yesterday she did see a small clots. Patien t's denying any lightheadedness, dizziness, weakness. Upon my assessment patient states she does not have any cramping. States it is intermittent in nature. Patient is also complaining of generalized cough, congestion for the last 3 days. Patient states she does have asthma and typically takes albuterol but ran out of her albuterol treatment. States she has also had 2 episodes of posttussive emesis. Patient continues to deny any fevers. TRAVEL OUTSIDE OF THE [place] IN LAST 30 DAYS: No - Related Data Allergies/Adverse Reactions: iodine Allergy (Verified 06/30/19 14:52) shrimp Allergy (Verified 06/30/19 14:52) Past Medical History - General Information source: Patient - Social History Smoking Status: Former Smoker Family History: Reviewed & Not Pertinent Patient has suicidal ideation: No Patient has homicidal ideation: No - Past Medical History Cardiac Medical History: Reports: Hx DVT Pulmonary Medical History: Reports: Hx Asthma, Hx Bronchitis Renal/ Medical History: Reports: Hx Kidney Stones. Denies: Hx Peritoneal Dialysis - Immunizations Hx Diphtheria, Pertussis, Tetanus Vaccination: Yes Hx Pneumococcal Vaccination: 04/10/14 Review of Systems - Review of Systems Constitutional: denies: Fever EENT: See HPI Cardiovascular: See HPI Respiratory: See HPI Gastrointestinal: See HPI Genitourinary: See HPI Female Genitourinary: See HPI Musculoskeletal: No symptoms reported Skin: No symptoms reported Hematologic/Lymphatic: No symptoms reported Neurological/Psychological: No symptoms reported Physical Exam - Vital signs Vitals: Temp Pulse Resp BP Pulse Ox 98.0 F 90 16 132/73 H 100 06/30/19 13:44 06/30/19 13:44 06/30/19 13:44 06/30/19 13:44 06/30/19 13:44 - Notes Notes: GENERAL: Alert, interacts well. No acute distress. HEAD: Normocephalic, atraumatic. EYES: Pupils equal, round, and reactive to light. Extraocular movements intact. ENT: Oral mucosa moist, tongue midline. Pharynx within normal limits, bilateral TMs nonerythematous, nonbulging. NECK: Full range of motion. Supple. Trachea midline. LUNGS: Expiratory wheeze auscultation bilaterally, no discernible rales, or rhonchi. No respiratory distress. HEART: Regular rate and rhythm. No murmur ABDOMEN: Soft, non-tender. Non-distended. Bowel sounds present in all 4 quadrants. EXTREMITIES: Moves all 4 extremities spontaneously. No edema, normal radial and dorsalis pedis pulses bilaterally. No cyanosis. BACK: no cervical, thoracic, lumbar midline tenderness. No saddle anesthesia, normal distal neurovascular exam. No CVA tenderness noted bilaterally. NEUROLOGICAL: Alert and oriented x3. Normal speech. cranial nerves II through XII grossly intact PSYCH: Normal affect, normal mood. SKIN: Warm, dry, normal turgor. No rashes or lesions noted. Course - Re-evaluation Re-evalutation: Laboratory 06/30/19 06/30/19 06/30/19 16:22 16:22 16:22 WBC 9.8 RBC 4.92 Hgb 11.8 L Hct 37.6 MCV 76 L MCH 24.0 L MCHC 31.4 L RDW 14.9 H Plt Count 331 Lymph % (Auto) 21.3 [place] % (Auto) 6.6 Eos % (Auto) 4.6 Baso % (Auto) 0.7 Absolute Neuts (auto) 6.6 Absolute Lymphs (auto) 2.1 Absolute Monos (auto) 0.6 Absolute Eos (auto) 0.4 Absolute Basos (auto) 0.1 Seg Neutrophils % 66.8 Sodium 140.5 Potassium 4.3 Chloride 104 Carbon Dioxide 28 Anion Gap 9 BUN 10 Creatinine 0.83 Est GFR ( Amer) > 60 Est GFR (MDRD) Non-Af > 60 Glucose 84 Calcium 9.9 Total Bilirubin 0.6 Direct Bilirubin 0.1 Neonat Total Bilirubin Not Reportable Neonat Direct Bilirubin Not Reportable Neonat Indirect Bili Not Reportable AST 23 ALT 16 Alkaline Phosphatase 57 Total Protein 7.3 Albumin 4.3 Serum HCG, Qual POSITIVE H Beta HCG, Quant Total Beta HCG Urine Color Urine Appearance Urine pH Ur Specific [place] Urine Protein Urine Glucose (UA) Urine Ketones Urine Blood Urine Nitrite Urine Bilirubin Urine Urobilinogen Ur Leukocyte Esterase Urine WBC (Auto) Urine RBC (Auto) Urine Bacteria (Auto) Squamous Epi Cells Auto Amorphous Sediment Auto Urine Mucus (Auto) Urine Ascorbic Acid Blood Type Rhogam Indicated 06/30/19 06/30/19 06/30/19 16:22 16:22 16:22 WBC RBC Hgb Hct MCV MCH MCHC RDW Plt Count Lymph % (Auto) [place] % (Auto) Eos % (Auto) Baso % (Auto) Absolute Neuts (auto) Absolute Lymphs (auto) Absolute Monos (auto) Absolute Eos (auto) Absolute Basos (auto) Seg Neutrophils % Sodium Potassium Chloride Carbon Dioxide Anion Gap BUN Creatinine Est GFR ( Amer) Est GFR (MDRD) Non-Af Glucose Calcium Total Bilirubin Direct Bilirubin Neonat Total Bilirubin Neonat Direct Bilirubin Neonat Indirect Bili AST ALT Alkaline Phosphatase Total Protein Albumin Serum HCG, Qual Beta HCG, Quant 57.14 H Total Beta HCG POSITIVE Urine Color YELLOW Urine Appearance CLOUDY Urine pH 7.0 Ur Specific [place] 1.025 Urine Protein NEGATIVE Urine Glucose (UA) NEGATIVE Urine Ketones NEGATIVE Urine Blood NEGATIVE Urine Nitrite NEGATIVE Urine Bilirubin NEGATIVE Urine Urobilinogen 4.0 H Ur Leukocyte Esterase NEGATIVE Urine WBC (Auto) 3 Urine RBC (Auto) 1 Urine Bacteria (Auto) TRACE Squamous Epi Cells Auto 6 Amorphous Sediment Auto TRACE Urine Mucus (Auto) OCC Urine Ascorbic Acid NEGATIVE Blood Type O POSITIVE Rhogam Indicated RHOGAM NOT INDICATED Transvaginal US 06/30/19 18:19 IMPRESSION: No intrauterine identified. Continued beta hCG surveillance and follow-up pelvic ultrasound is recommended to assess for the development of an intrauterine as an ectopic is not completely excluded on this examination. Laterally, given the provided history of bleeding, a miscarriage is also a possibility. Hypoechoic lesion about the right ovary which demonstrates peripheral Doppler flow most likely corresponds to a corpus luteal cyst. copyright 2010 [employer]- All Rights Reserved Chest X-Ray 06/30/19 20:33 IMPRESSION: No acute cardiopulmonary disease. Patient has been treated with a DuoNeb in the emergency department states she overall feels a lot better. I discussed with her continued use of albuterol inhaler. States she ran out of her inhaler, will refill. Discussed with patient ultrasound and beta-hCG results. Discussed she needs to follow-up with women's health in the next 48 to 72 hours for continued laboratory testing. I have also discussed close return precautions with her as far as vaginal bleeding and lower abdominal pelvic pain is concerned. Patient voices understanding, is non-hypotensive, non-tachycardic, stable for discharge. - Vital Signs Vital signs: Temp Pulse Resp BP Pulse Ox 97.6 F 92 16 123/59 L 100 06/30/19 21:23 06/30/19 21:23 06/30/19 21:23 06/30/19 21:23 06/30/19 21:23 - Laboratory Result Diagrams: 06/30/19 16:22 06/30/19 16:22 Laboratory results interpreted by me: 06/30/19 06/30/19 06/30/19 16:22 16:22 16:22 Hgb 11.8 L MCV 76 L MCH 24.0 L MCHC 31.4 L RDW 14.9 H Serum HCG, Qual POSITIVE H Beta HCG, Quant Urine Urobilinogen 4.0 H 06/30/19 16:22 Hgb MCV MCH MCHC RDW Serum HCG, Qual Beta HCG, Quant 57.14 H Urine Urobilinogen Discharge - Discharge Clinical Impression: Bronchospasm, Vaginal bleeding affecting early Qualifiers: Weeks of gestation: less than 8 weeks Qualified Code(s): Z3A.01 - Less than 8 weeks gestation of Upper respiratory infection Qualifiers: URI type: unspecified viral URI Qualified Code(s): J06.9 - Acute upper respiratory infection, unspecified Condition: Stable Disposition: HOME, SELF-CARE Instructions: Viral Syndrome ([facility]), Upper Respiratory Illness ([facility]), Bleeding During Early ([facility]), Bronchospasm ([facility]) Additional Instructions: As we discussed you have been seen and treated in the emergency department for an upper respiratory infection, lower abdominal pain and vaginal bleeding. Your test results reveal that you are . This could be an early , it could be a miscarriage, it could be an ectopic . As we discussed you should follow-up with women's health in the next 48 to 72 hours for repeat lab testing. You should also return to the emergency room should you have excessive vaginal bleeding, get lightheaded, dizzy, weak, short of breath, have a return or intense lower abdominal pain or have any other concerns. Please make sure you are using your albuterol inhaler every 4 hours as needed for respiratory distress. Prescriptions: Albuterol Sulfate [Proair HFA Inhalation Aerosol 8.5 gm MDI] 2 puff IH Q4H PRN #1 mdi PRN Reason: Forms: Return to Work Referrals: SALLIE ZHONG DO [NO LOCAL MD] - Follow up as needed
[2019-06-30] MEDS ORDERED: IPRATROPIUM/ALBUTEROL 0.5-2.5 MG/3 ML AMPUL NEB ONE (19:22)
--- NOTE | 2019-06-30 20:26 | RADIOLOGY REPORT (SQ) ---
EXAM DESCRIPTION: US TRANSVAGINAL COMPLETED DATE/TME: 06/30/2019 18:19 CLINICAL HISTORY: 28 years, Female, + and bleeding COMPARISON: Prior study from 04/30/2018 TECHNIQUE: Axial 2-D grayscale images of the pelvis were obtained. Doppler was utilized. LIMITATIONS: None. FINDINGS: LMP: 05/29/2019. Estimated gestational age based on LMP is four weeks and four days. Uterus measures 9.7 x 4.8 x 5.1 cm in size. Cervix is closed, measuring 3.0 cm in length. No intrauterine is identified. Endometrial stripe thickness measures 1 cm. Right ovary measures 2.8 x 1.9 x 2.1 cm in size. It demonstrates normal low resistance arterial waveforms as well as venous flow. It contains a hypoechoic lesion measuring 1.9 x 1.8 x 1.7 cm in size, demonstrating peripheral Doppler flow, most likely indicating a corpus luteal cyst. The left ovary was not visualized. Trace amount of free fluid layers definitely within the cul-de-sac. IMPRESSION: No intrauterine identified. Continued beta hCG surveillance and follow-up pelvic ultrasound is recommended to assess for the development of an intrauterine as an ectopic is not completely excluded on this examination. Laterally, given the provided history of bleeding, a miscarriage is also a possibility. Hypoechoic lesion about the right ovary which demonstrates peripheral Doppler flow most likely corresponds to a corpus luteal cyst. copyright 2010 [employer]- All Rights Reserved
--- NOTE | 2019-06-30 21:07 | RADIOLOGY REPORT (SQ) ---
XR CHEST 2 VIEWS CLINICAL STATEMENT: SOB COMPARISON: 10/10/2018 FINDINGS: Cardiomediastinal silhouette is within normal limits. There is no focal lung consolidation or pleural effusion. No evidence of pulmonary edema or pneumothorax. IMPRESSION: No acute cardiopulmonary disease.
[2019-06-30 21:25] VITALS: BP 123/59
== END 2019-06-30 21:46 | disposition home or self-care (01) ==
LOC: ER 13:41
DX: O46.91 Antepartum hemorrhage, unspecified, first trimester (principal); O99.511 Diseases of the respiratory system complicating pregnancy, first trimester; J06.9 Acute upper respiratory infection, unspecified; J45.909 Unspecified asthma, uncomplicated; R10.30 Lower abdominal pain, unspecified; R11.0 Nausea; R05 Cough; R10.9 Unspecified abdominal pain; R09.81 Nasal congestion; Z3A.01 Less than 8 weeks gestation of pregnancy; Z87.891 Personal history of nicotine dependence
CPT/HCPCS: 94640; 99284; 86900; 86901; 36415; 84702; 84703; 85025; 80053; 81001; 71046; 76817; 93976; S0119; J7620

== ENCOUNTER 2019-10-02 03:50 | Emergency (ER) | payer MEDICAID ==
[2019-10-02 05:09] LABS: ABSOLUTE EOSINOPHILS # (AUTO) 0.3 10^3/uL (0.0-0.6); ABSOLUTE MONOCYTES (AUTO) 0.6 10^3/uL (0.1-1.4); ABSOLUTE NEUT (AUTO) 6.2 10^3/uL (1.7-8.2); BASOPHILS % (AUTO) 0.4 % (0-2); HEMATOCRIT 32.9 % (36.0-47.0); HEMOGLOBIN 10.6 g/dL (12.0-15.5); LYMPHOCYTES % (AUTO) 22.1 % (13-45); MEAN CORPUSCULAR HEMOGLOBIN 24.1 pg (27.0-33.4); MEAN CORPUSCULAR HGB CONC 32.2 g/dL (32.0-36.0); MEAN CORPUSCULAR VOLUME 75 fl (80-97); MONOCYTES % (AUTO) 6.9 % (3-13); PLATELET COUNT 328 10^3/uL (150-450); SEGMENTED NEUTROPHILS % (AUTO) 67.6 % (42-78); TOTAL CELLS COUNTED % (AUTO) 100 %; WHITE BLOOD COUNT 9.2 10^3/uL (4.0-10.5)
[2019-10-02 05:27] LABS: ANION GAP 12 (5-19); BLOOD UREA NITROGEN 10 mg/dL (7-20); CALCIUM 9.7 mg/dL (8.4-10.2); CARBON DIOXIDE 25 mmol/L (22-30); CHLORIDE 104 mmol/L (98-107); GLUCOSE 84 mg/dL (75-110); POTASSIUM 4.3 mmol/L (3.6-5.0)
[2019-10-02] MEDS ORDERED: ACETAMINOPHEN 325 MG TABLET PO ONE (05:45)
[2019-10-02] MEDS ORDERED: ACETAMINOPHEN 325 MG TABLET ONE (05:49)
--- NOTE | 2019-10-02 09:18 | ER Document Report ---
ED General - General Chief Complaint: Sore Throat Stated Complaint: SORE THROAT/VOMITING/16 WEEKS Time Seen by Provider: 10/02/19 08:38 Primary Care Provider: SALLIE ZHONG DO [Primary Care Provider] - Follow up as needed Notes: 28-year-old female who presents for sore throat, congestion, nausea/vomiting for the past 5 days. Patient is approximately 16weeks . Patient states she had a fever of 102 yesterday which was relieved with Tylenol. Patient states she is able to swallow however it is painful. Patient denies any abdominal pain, vaginal bleeding/discharge, or any other related complaints. TRAVEL OUTSIDE OF THE [place] IN LAST 30 DAYS: No - Related Data Allergies/Adverse Reactions: iodine Allergy (Verified 06/30/19 14:52) shrimp Allergy (Verified 06/30/19 14:52) Home Medications: prednisone. vitamins Past Medical History - Social History Smoking Status: Never Smoker Family History: Reviewed & Not Pertinent Patient has suicidal ideation: No Patient has homicidal ideation: No - Past Medical History Cardiac Medical History: Reports: Hx DVT Pulmonary Medical History: Reports: Hx Asthma, Hx Bronchitis Renal/ Medical History: Reports: Hx Kidney Stones. Denies: Hx Peritoneal Dialysis - Immunizations Hx Diphtheria, Pertussis, Tetanus Vaccination: Yes Hx Pneumococcal Vaccination: 04/10/14 Review of Systems - Review of Systems Notes: Constitutional: Positive for fever. HENT: Positive for sore throat. Eyes: Negative for visual changes. Cardiovascular: Negative for chest pain. Respiratory: Positive for cough. Negative for shortness of breath. Gastrointestinal: Negative for abdominal pain, vomiting or diarrhea. Genitourinary: Negative for dysuria. Musculoskeletal: Negative for back pain. Skin: Negative for rash. Neurological: Negative for headaches, weakness or numbness. 10 point ROS negative except as marked above and in HPI. Physical Exam - Vital signs Vitals: Temp Pulse Resp BP Pulse Ox 98.1 F 94 20 129/64 H 98 10/02/19 04:03 10/02/19 04:03 10/02/19 04:03 10/02/19 04:03 10/02/19 04:03 - Notes Notes: GENERAL: Well-appearing, well-nourished and in no acute distress. HEAD: Atraumatic, normocephalic. EYES: Extraocular movements intact, sclera anicteric, conjunctiva are normal. ENT: Bilateral EACs with cerumen with no erythema, nares patent, oropharynx clear without exudates. Mild tonsillar hypertrophy with erythema. No exudates. Uvula is midline without edema. No trismus. No muffled voice. No SCHOOL COMMISSIONER. Moist mucous membranes. NECK: Normal range of motion, supple without lymphadenopathy or JVD. LUNGS: Breath sounds clear to auscultation bilaterally and equal. No wheezes rales or rhonchi. HEART: Regular rate and rhythm without murmurs, rubs or gallops. ABDOMEN: Soft, nontender. No guarding, no rebound. No masses appreciated. EXTREMITIES: Normal range of motion, no pitting or edema. No clubbing or cyanosis. NEUROLOGICAL: Cranial nerves II through XII grossly intact. Normal speech, normal gait. PSYCH: Normal mood, normal affect. SKIN: Warm, Dry, normal turgor, no rashes or lesions noted. Course - Re-evaluation Re-evalutation: 10/02/19 28-year-old female who is approximately 16 weeks presents with URI type symptoms. Patient's throat exam reveals mild erythema with tonsillar hypertrophy, no SCHOOL COMMISSIONER, no trismus, uvula is midline without edema, no muffled voice. Patient patient appears nontoxic, well-appearing. Patient is afebrile here in ER. Lab work shows no leukocytosis mild anemia which is at baseline for patient. Strep is negative however given symptom duration and fever yesterday patient will be treated with amoxicillin. Patient given suggestions for OTC relief. Patient given close follow-up with PCP. Strict return precautions given. Patient voices understanding and agrees with plan of care. - Vital Signs Vital signs: Temp Pulse Resp BP Pulse Ox 98.0 F 86 18 107/58 L 99 10/02/19 08:46 10/02/19 08:46 10/02/19 08:46 10/02/19 08:46 10/02/19 08:46 - Laboratory Result Diagrams: 10/02/19 04:50 10/02/19 04:50 Laboratory results interpreted by me: 10/02/19 04:50 Hgb 10.6 L Hct 32.9 L MCV 75 L MCH 24.1 L Discharge - Discharge Clinical Impression: Acute tonsillitis Qualifiers: Pharyngitis/tonsillitis etiology: unspecified etiology Qualified Code(s): J03 .90 - Acute tonsillitis, unspecified Condition: Stable Disposition: HOME, SELF-CARE Instructions: Amoxicillin ([facility]), Sore Throat ([facility]), Tonsillitis ([facility]) Additional Instructions: Please take amoxicillin as prescribed and finish all doses even if you feel better. For sore throat please take a spoonful of honey, Chloraseptic spray [id number], gargle salt water, popsicles. For stuffy nose: sudafed (pseudoephedrine), saline nasal spray. Sore/scratchy throat: cepacol lozenges or chloraseptic spray. Cough: Robitussin products "alcohol free". Please follow-up with your primary care doctor in 2 to 3 days. Return to ER for any worsening symptoms, including fever, worsening sore throat, inability to swallow, uvula (ball hanging in back of your throat) shifting to one side, muffled voice, inability to open mouth, nausea/vomiting, abdominal pain, vaginal bleeding, or any other symptoms that are concerning to you. Prescriptions: Amoxicillin 1 tab PO BID #20 tab Fluticasone Propionate [Flonase Nasal [place] 50 Mcg/[place] 16 gm] 1 spray NASL Q12 #1 inhaler Forms: Return to Work Referrals: SALLIE ZHONG DO [Primary Care Provider] - Follow up in 3-5 days
[2019-10-02 09:46] VITALS: BP 111/62
== END 2019-10-02 09:42 | disposition home or self-care (01) ==
LOC: ER 03:50
DX: O26.892 Other specified pregnancy related conditions, second trimester (principal); J03.90 Acute tonsillitis, unspecified; R50.9 Fever, unspecified; R11.10 Vomiting, unspecified; Z3A.16 16 weeks gestation of pregnancy
CPT/HCPCS: 99283; 36415; 87070; 87880; 85025; 87077; 80048; J3490

== ENCOUNTER 2019-10-23 14:36 | Emergency (ER) | payer MEDICAID ==
--- NOTE | 2019-10-23 14:46 | ER Document Report ---
ED Medical Screen (RME) - General Chief Complaint: Abdominal Pain Stated Complaint: VAGINAL BLEEDING/ABDONIMAL PAIN Time Seen by Provider: 10/23/19 14:43 Primary Care Provider: SALLIE ZHONG DO [Primary Care Provider] - Follow up as needed Mode of Arrival: Wheelchair Information source: Patient Notes: 28-year-old female presented to ED for lower abdomen pain and right back pain. She states she is 19 weeks 5 days . She is having a lot of pressure in her abdomen. She states she tried to get in with the TEXTILE SCREEN PRINTER and was not able to get in. She states she is had vaginal bleeding. She states the bleeding started over the weekend is getting worse. She states it is constant bleeding. States she had a similar problem about 3 weeks ago in the same . She states that the TEXTILE SCREEN PRINTER did an ultrasound and stated that everything was fine and could not see where the bleeding was coming from. Patient is alert oriented respirations regular nonlabored speaking in full sentences There may TRAVEL OUTSIDE OF THE [place] IN LAST 30 DAYS: No - Related Data Allergies/Adverse Reactions: iodine Allergy (Verified 06/30/19 14:52) shrimp Allergy (Verified 06/30/19 14:52) Past Medical History - Past Medical History Cardiac Medical History: Reports: Hx DVT Pulmonary Medical History: Reports: Hx Asthma, Hx Bronchitis Renal/ Medical History: Reports: Hx Kidney Stones. Denies: Hx Peritoneal Dialysis - Immunizations Hx Diphtheria, Pertussis, Tetanus Vaccination: Yes Physical Exam - Vital signs Vitals: Temp Pulse Resp BP Pulse Ox 97.6 F 90 20 127/55 H 98 10/23/19 14:43 10/23/19 14:43 10/23/19 14:43 10/23/19 14:43 10/23/19 14:43 Course - Vital Signs Vital signs: Temp Pulse Resp BP Pulse Ox 97.6 F 90 20 127/55 H 98 10/23/19 14:43 10/23/19 14:43 10/23/19 14:43 10/23/19 14:43 10/23/19 14:43 Doctor's Discharge - Discharge Referrals: SALLIE ZHONG DO [Primary Care Provider] - Follow up as needed
[2019-10-23] MEDS ORDERED: NORMAL SALINE 1000 ML 1,000 ML IV ONE (14:49)
[2019-10-23 15:18] LABS: ABSOLUTE EOSINOPHILS # (AUTO) 0.4 10^3/uL (0.0-0.6); ABSOLUTE LYMPHOCYTES (AUTO) 2.2 10^3/uL (0.5-4.7); ABSOLUTE MONOCYTES (AUTO) 0.6 10^3/uL (0.1-1.4); ABSOLUTE NEUT (AUTO) 4.4 10^3/uL (1.7-8.2); BASOPHILS % (AUTO) 0.6 % (0-2); EOSINOPHILS % (AUTO) 4.8 % (0-6); HEMATOCRIT 32.8 % (36.0-47.0); HEMOGLOBIN 10.5 g/dL (12.0-15.5); LYMPHOCYTES % (AUTO) 28.3 % (13-45); MEAN CORPUSCULAR HEMOGLOBIN 24.3 pg (27.0-33.4); MEAN CORPUSCULAR HGB CONC 32.1 g/dL (32.0-36.0); MEAN CORPUSCULAR VOLUME 76 fl (80-97); MONOCYTES % (AUTO) 7.9 % (3-13); PLATELET COUNT 349 10^3/uL (150-450); RED BLOOD COUNT 4.32 10^6/uL (3.72-5.28); RED CELL DISTRIBUTION WIDTH 14.8 % (11.5-14.0); SEGMENTED NEUTROPHILS % (AUTO) 58.4 % (42-78); TOTAL CELLS COUNTED % (AUTO) 100 %; WHITE BLOOD COUNT 7.6 10^3/uL (4.0-10.5)
--- NOTE | 2019-10-23 15:21 | ER Document Report ---
ED GI/ - General Chief Complaint: Vaginal Bleeding Stated Complaint: VAGINAL BLEEDING/ABDONIMAL PAIN Time Seen by Provider: 10/23/19 14:43 Primary Care Provider: SALLIE ZHONG DO [NO LOCAL MD] - Follow up as needed Mode of Arrival: Wheelchair Notes: CHIEF COMPLAINT: Intermittent vaginal bleeding and pelvic cramping in the setting of HPI: 28-year-old female who is a G5, presenting to the emergency department complaining of intermittent episodes of vaginal bleeding and pelvic cramping worse over the last week. Patient states sometimes it will be spotting sometimes she will have to use a menstrual pad. Patient states that she has been having episodes like this throughout her entire . She was evaluated by her FOOT AND ANKLE SURGEON a month ago for similar symptoms and they were not able to determine a definitive causation. Patient states that she does have a predisposition to DVTs and is on Lovenox shots twice daily. Patient does report increased nausea over the last 4 to 5 days without fever. She does report a vaginal discharge. ROS: See HPI - all other systems were reviewed and are otherwise negative Constitutional: no fever or recent illness Eyes: no drainage, no blurred vision ENT: no runny nose, no sore throat Cardiovascular: no chest pain Resp: no SOB, no cough GI: no vomiting, no diarrhea, + nausea, + pelvic pain : no dysuria, + vaginal discharge Integumentary: no rash Allergy: no hives Musculoskeletal: no extremity pain or swelling Neurological: no numbness/tingling, no weakness MEDICATIONS: I agree with the patient medications as charted by the RN. ALLERGIES: I agree with the allergies as charted by the RN. PAST MEDICAL HISTORY/PAST SURGICAL HISTORY: Reviewed and agree as charted by RN. SOCIAL HISTORY: Reviewed and agree as charted by RN. FAMILY HISTORY: No significant familial comorbid conditions directly related to patient complaint EXAM: Reviewed vital signs as charted by RN. CONSTITUTIONAL: Alert and oriented and responds appropriately to questions. Well-appearing; well-nourished, mild distress secondary to pain HEAD: Normocephalic; atraumatic EYES: Conjunctivae clear, sclerae non-icteric ENT: normal nose; no rhinorrhea; moist mucous membranes; pharynx without lesions noted NECK: Supple without meningismus; non-tender; no cervical lymphadenopathy, no masses CARD: RRR; no murmurs, no clicks, no rubs, no gallops; symmetric distal pulses RESP: Normal chest excursion without splinting or tachypnea; breath sounds clear and equal bilaterally; no wheezes, no rhonchi, no rales, ABD/GI: Normal bowel sounds; non-distended; soft, mild tenderness across the pelvis on palpation. 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 External genitalia normal. No skin lesions noted. Pelvic Exam: No active bleeding. Small amount of a thick white vaginal discharge is noted. Cervix appears normal. No CMT. cervical loss is closed no lesions or masses. Uterus enlarged consistent with dates and non tender. Right/Left adnexa normal size and non tender. BACK: The back appears normal and is non-tender to palpation, there is no CVA tenderness EXT: Normal ROM in all joints; non-tender to palpation; no cyanosis, no effusions, no edema SKIN: Normal color for age and race; warm; dry; good turgor; no acute lesions noted NEURO: Moves all extremities equally; Motor and sensory function intact PSYCH: The patient's mood and manner are appropriate. Grooming and personal hygiene are appropriate. MDM: 28-year-old female who is 19 weeks 5 days by ultrasound presenting for episodes of vaginal bleeding that have been present throughout her , feels like they are more prominent over the last week with some pelvic cramping. Also reports a slight vaginal discharge. Has had nausea and occasional vomiting. No fevers. No dysuria. On review of the patient's chart her blood type is O+. Screening labs ordered by triage process. Will perform pelvic exam to evaluate bleeding and cervix. Patient to go to ultrasound to assess and possibility of subchorionic hemorrhage. She does report the bleeding is dark at times. TRAVEL OUTSIDE OF THE [place] IN LAST 30 DAYS: No - Related Data Allergies/Adverse Reactions: iodine Allergy (Verified 06/30/19 14:52) shrimp Allergy (Verified 06/30/19 14:52) Past Medical History - General Information source: Patient - Social History Smoking Status: Never Smoker Chew tobacco use (# tins/day): No Frequency of alcohol use: None Drug Abuse: None Family History: Reviewed & Not Pertinent Patient has suicidal ideation: No Patient has homicidal ideation: No - Past Medical History Cardiac Medical History: Reports: Hx DVT Pulmonary Medical History: Reports: Hx Asthma, Hx Bronchitis Renal/ Medical History: Reports: Hx Kidney Stones. Denies: Hx Peritoneal Dialysis - Immunizations Hx Diphtheria, Pertussis, Tetanus Vaccination: Yes Hx Pneumococcal Vaccination: 04/10/14 Physical Exam - Vital signs Vitals: Temp Pulse Resp BP Pulse Ox 97.6 F 90 20 127/55 H 98 10/23/19 14:43 10/23/19 14:43 10/23/19 14:43 10/23/19 14:43 10/23/19 14:43 Course - Re-evaluation Re-evalutation: 10/23/19 17:24 Patient ultrasound does not show an acute source for her bleeding. Patient lab work does not show acute emergent abnormalities. Ultrasound does not show acute emergent abnormalities or definitive source for bleeding. I discussed findings with the patient at length. She will call her FOOT AND ANKLE SURGEON tomorrow morning to discuss close follow-up. She indicates that she will hold off on taking her Lovenox tonight but will discuss with her FOOT AND ANKLE SURGEON tomorrow whether she should restart this medication - Vital Signs Vital signs: Temp Pulse Resp BP Pulse Ox 97.6 F 90 20 127/55 H 98 10/23/19 14:43 10/23/19 14:43 10/23/19 14:43 10/23/19 14:43 10/23/19 14:43 - Laboratory Result Diagrams: 10/23/19 15:00 10/23/19 15:20 Laboratory results interpreted by me: 10/23/19 10/23/19 10/23/19 15:00 15:00 15:20 Hgb 10.5 L Hct 32.8 L MCV 76 L MCH 24.3 L RDW 14.8 H Sodium 135.0 L Urine Protein 30 H Urine Urobilinogen 2.0 H Leukocyte Esterase Rfl LARGE H Urine Ascorbic Acid 40 H Discharge - Discharge Clinical Impression: Vaginal bleeding during Condition: Stable Disposition: HOME, SELF-CARE Additional Instructions: Call your FOOT AND ANKLE SURGEON tomorrow morning to discuss further evaluation in the office and use of your Lovenox in light of your episodic bleeding episodes Referrals: SALLIE ZHONG DO [NO LOCAL MD] - Follow up as needed
[2019-10-23] MEDS ORDERED: ONDANSETRON HCL INJ/PF 4 MG/2 ML SDV IV ONE (15:25)
[2019-10-23 15:27] LABS: APPEARANCE,URINE CLOUDY; BILIRUBIN,URINE NEGATIVE (NEGATIVE); COLOR,URINE YELLOW; GLUCOSE, URINE NEGATIVE (NEGATIVE); KETONES,URINE NEGATIVE (NEGATIVE); PROTEIN,URINE 30 mg/dL (NEGATIVE)
[2019-10-23 16:05] LABS: ALBUMIN 4.1 g/dL (3.5-5.0); ALKALINE PHOSPHATASE 52 U/L (38-126); ANION GAP 7 (5-19); ASPARTATE AMINO TRANSFERASE 19 U/L (14-36); BILIRUBIN,TOTAL 0.5 mg/dL (0.2-1.3); BLOOD UREA NITROGEN 8 mg/dL (7-20); CALCIUM 9.6 mg/dL (8.4-10.2); CARBON DIOXIDE 27 mmol/L (22-30); CHLORIDE 101 mmol/L (98-107); GLUCOSE 75 mg/dL (75-110); TOTAL PROTEIN 7.9 g/dL (6.3-8.2)
--- NOTE | 2019-10-23 16:44 | RADIOLOGY REPORT (SQ) ---
EXAM DESCRIPTION: U/S OB 14+ TA/1 GEST W/DOPPLER COMPLETED DATE/TIME: 10/23/2019 4:17 pm REASON FOR STUDY: Pelvic pain vaginal bleeding 19 weeks 5 days pregn COMPARISON: 06/30/2019 TECHNIQUE: Static and Dynamic grayscale imaging performed of gravid uterus using transabdominal appr oach. Additional selected color Doppler and spectral images recorded. All stored on PACS. LIMITATIONS: None. FINDINGS: FETUSES SEEN:1 EGA: 19 weeks 14 days. Calculated using BPD,FL,HC,AC documented on images. No discrepancy with clini mary dates. MANUELITO: 03/14/2020 EFW: 288 grams PERCENTILE: Not applicable. Fetus less than or equal to 20 weeks gestation. LVP: 3.8 x 8.1 cm. PLACENTA: Posterior in location. The uterus demonstrates heterogeneous echogenicity. Etiology of th is is uncertain. This can be seen with preeclampsia. PRESENTATION: Cephalic. ANATOMY: HEART RATE: 133 beats per minute. OTHER: No other significant finding. MATERNAL ADNEXA: Maternal ovaries not visualized. CERVICAL LENGTH: 2.2 cm. Closed. OTHER: No other significant finding. IMPRESSION: LIVING INTRAUTERINE . ESTIMATED GESTATIONAL AGE 19 WEEKS 4 DAYS. HETEROGENEOUS ECHOGENICITY THROUGHOUT THE PLACENTA WHICH IS NONSPECIFIC. Trimester of : Second trimester - 13 weeks 1 day to 27 weeks 6 days. TECHNICAL DOCUMENTATION: JOB ID: [id number] [employer]- All Rights Reserved Reading location - IP/workstation name: [email or web address]
[2019-10-23 17:17] LABS: INTERNATIONAL RATION (INR) 0.96; PROTHROMBIN TIME 12.8 SEC (11.4-15.4)
[2019-10-23 18:03] VITALS: BP 114/54
== END 2019-10-23 17:55 | disposition home or self-care (01) ==
LOC: ER 14:36
DX: O20.9 Hemorrhage in early pregnancy, unspecified (principal); O26.892 Other specified pregnancy related conditions, second trimester; R10.2 Pelvic and perineal pain; N89.8 Other specified noninflammatory disorders of vagina; O21.9 Vomiting of pregnancy, unspecified; O99.512 Diseases of the respiratory system complicating pregnancy, second trimester; J45.909 Unspecified asthma, uncomplicated; Z79.01 Long term (current) use of anticoagulants; Z86.718 Personal history of other venous thrombosis and embolism; Z91.013 Allergy to seafood; Z3A.19 19 weeks gestation of pregnancy
CPT/HCPCS: 99284; 96361; 96374; 36415; 85025; 85610; 80053; 81001; 76805; 93976; J2405; J7030

== ENCOUNTER 2019-12-19 13:36 | Outpatient (CLI) | payer MEDICAID ==
[2019-12-19 14:46] LABS: URINE AMPHETAMINES SCREEN NEGATIVE; URINE BARBITURATES SCREEN NEGATIVE; URINE BENZODIAZEPINES SCREEN NEGATIVE; URINE COCAINE SCREEN NEGATIVE; URINE MARIJUANA (THC) SCREEN NEGATIVE; URINE METHADONE SCREEN NEGATIVE; URINE PHENCYCLIDINE SCREEN NEGATIVE
[2019-12-19 14:53] LABS: APPEARANCE,URINE CLOUDY; BILIRUBIN,URINE NEGATIVE (NEGATIVE); COLOR,URINE YELLOW; GLUCOSE, URINE NEGATIVE (NEGATIVE); KETONES,URINE NEGATIVE (NEGATIVE); LEUKOCYTE ESTERASE,URINE LARGE (NEGATIVE); NITRITE,URINE NEGATIVE (NEGATIVE); PROTEIN,URINE 30 mg/dL (NEGATIVE); URINE SPECIFIC GRAVITY 1.028
[2019-12-19 15:10] LABS: ABSOLUTE BASOPHILS # (AUTO) 0.1 10^3/uL (0.0-0.2); ABSOLUTE EOSINOPHILS # (AUTO) 0.5 10^3/uL (0.0-0.6); ABSOLUTE LYMPHOCYTES (AUTO) 2.2 10^3/uL (0.5-4.7); ABSOLUTE MONOCYTES (AUTO) 0.6 10^3/uL (0.1-1.4); ABSOLUTE NEUT (AUTO) 4.7 10^3/uL (1.7-8.2); BASOPHILS % (AUTO) 0.7 % (0-2); EOSINOPHILS % (AUTO) 5.6 % (0-6); HEMOGLOBIN 9.1 g/dL (12.0-15.5); LYMPHOCYTES % (AUTO) 27.9 % (13-45); MEAN CORPUSCULAR HEMOGLOBIN 24.1 pg (27.0-33.4); MEAN CORPUSCULAR HGB CONC 31.5 g/dL (32.0-36.0); MEAN CORPUSCULAR VOLUME 77 fl (80-97); MONOCYTES % (AUTO) 7.8 % (3-13); PLATELET COUNT 298 10^3/uL (150-450); RED BLOOD COUNT 3.78 10^6/uL (3.72-5.28); RED CELL DISTRIBUTION WIDTH 14.6 % (11.5-14.0); TOTAL CELLS COUNTED % (AUTO) 100 %
--- NOTE | 2019-12-19 16:29 | RADIOLOGY REPORT (SQ) ---
EXAM DESCRIPTION: U/S ABDOMEN LIMITED W/O DOP COMPLETED DATE/TIME: 12/19/2019 4:13 pm REASON FOR STUDY: RUQ pain, N/V, Gallbladder COMPARISON: None. TECHNIQUE: Dynamic and static grayscale images acquired of the abdomen and recorded on PACS. Additio nal selected color Doppler and spectral images recorded. LIMITATIONS: Limited visualization. Poor acoustical window FINDINGS: PANCREAS: Limited visualization. no masses seen LIVER: Normal size Echo texture normal. No focal masses. LIVER VASCULATURE: Normal directional flow of the main portal vein and hepatic veins. GALLBLADDER: No stones. Normal wall thickness. No pericholecystic fluid. ULTRASOUND-DETECTED CRUZ'S SIGN: Negative. INTRAHEPATIC DUCTS AND COMMON DUCT: CBD and intrahepatic ducts normal caliber. No filling defects. INFERIOR VENA CAVA: Normal flow. AORTA: No aneurysm. RIGHT KIDNEY: Normal size. Normal echogenicity. No solid or suspicious masses. No hydronephros is. No calcifications. PERITONEAL AND RIGHT PLEURAL SPACE: No ascites or effusions. OTHER: No other significant findings. IMPRESSION: NORMAL RIGHT UPPER QUADRANT ULTRASOUND VISUALIZED. TECHNICAL DOCUMENTATION: JOB ID: [id number] [employer]- All Rights Reserved Reading location - IP/workstation name: [email or web address]
--- NOTE | 2019-12-19 16:30 | RADIOLOGY REPORT (SQ) ---
EXAM DESCRIPTION: U/S OB LIMITED COMPLETED DATE/TIME: 12/19/2019 4:13 pm REASON FOR STUDY: Spotting COMPARISON: 10/23/2019 TECHNIQUE: Limited transvaginal grayscale ultrasound for evaluation of specific requested obstetrica l parameters. LIMITATIONS: None. FINDINGS: CERVICAL LENGTH: 2.9 cm. Closed. AMANDA: 10.4 cm. FHR: 136 beats per minute. PRESENTATION: Breech. PLACENTA: Fundal ANATOMY: Not assessed OTHER: Estimated gestational age 27 weeks 6 days. IMPRESSION: LIMITED OBSTETRICAL ULTRASOUND WITH MEASURED PARAMETERS DELINEATED ABOVE. Trimester of : Second trimester - 13 weeks 1 day to 27 weeks 6 days. TECHNICAL DOCUMENTATION: JOB ID: [id number] 2010 [employer]- All Rights Reserved Reading location - IP/workstation name: [email or web address]
== END 2019-12-19 17:12 | disposition home or self-care (01) ==
LOC: LC 13:36
PROVIDERS: ATTEND Student in an Organized Health Care Education/Training Program
PROC: 4A1HXCZ Monitoring of Products of Conception, Cardiac Rate, External Approach (ICD-10-PCS; principal; 2019-12-19)
DX: O47.02 False labor before 37 completed weeks of gestation, second trimester (principal); Z3A.37 37 weeks gestation of pregnancy
CPT/HCPCS: 36415; 76705; 76815; 80307; 81001; 82150; 83690; 85025

== ENCOUNTER 2020-01-29 16:50 | Outpatient (CLI) | payer MEDICAID ==
[2020-01-29 17:36] LABS: APPEARANCE,URINE SLIGHTLY-CLOUDY; BILIRUBIN,URINE NEGATIVE (NEGATIVE); COLOR,URINE YELLOW; GLUCOSE, URINE NEGATIVE (NEGATIVE); KETONES,URINE NEGATIVE (NEGATIVE); LEUKOCYTE ESTERASE,URINE NEGATIVE (NEGATIVE); NITRITE,URINE NEGATIVE (NEGATIVE); PROTEIN,URINE 30 mg/dL (NEGATIVE); URINE SPECIFIC GRAVITY 1.027
[2020-01-29 17:49] LABS: ABSOLUTE EOSINOPHILS # (AUTO) 0.4 10^3/uL (0.0-0.6); ABSOLUTE MONOCYTES (AUTO) 0.5 10^3/uL (0.1-1.4); ABSOLUTE NEUT (AUTO) 4.2 10^3/uL (1.7-8.2); BASOPHILS % (AUTO) 0.3 % (0-2); EOSINOPHILS % (AUTO) 5.3 % (0-6); HEMATOCRIT 29.2 % (36.0-47.0); HEMOGLOBIN 9.7 g/dL (12.0-15.5); LYMPHOCYTES % (AUTO) 27.8 % (13-45); MEAN CORPUSCULAR HEMOGLOBIN 25.1 pg (27.0-33.4); MEAN CORPUSCULAR HGB CONC 33.1 g/dL (32.0-36.0); MEAN CORPUSCULAR VOLUME 76 fl (80-97); MONOCYTES % (AUTO) 7.2 % (3-13); PLATELET COUNT 234 10^3/uL (150-450); RED BLOOD COUNT 3.85 10^6/uL (3.72-5.28); RED CELL DISTRIBUTION WIDTH 17.3 % (11.5-14.0); SEGMENTED NEUTROPHILS % (AUTO) 59.4 % (42-78); TOTAL CELLS COUNTED % (AUTO) 100 %
[2020-01-29 18:02] LABS: URINE AMPHETAMINES SCREEN NEGATIVE; URINE BARBITURATES SCREEN NEGATIVE; URINE BENZODIAZEPINES SCREEN NEGATIVE; URINE COCAINE SCREEN NEGATIVE; URINE MARIJUANA (THC) SCREEN NEGATIVE; URINE METHADONE SCREEN NEGATIVE; URINE PHENCYCLIDINE SCREEN NEGATIVE
[2020-01-29 18:06] LABS: URINE CREATININE 292.7 mg/dL (16-327); URINE PROTEIN 9.2 mg/dL (<12)
[2020-01-29 18:20] LABS: ALKALINE PHOSPHATASE 83 U/L (38-126); ANION GAP 8 (5-19); ASPARTATE AMINO TRANSFERASE 33 U/L (14-36); BILIRUBIN,TOTAL 0.7 mg/dL (0.2-1.3); BLOOD UREA NITROGEN 9 mg/dL (7-20); CALCIUM 9.3 mg/dL (8.4-10.2); CARBON DIOXIDE 24 mmol/L (22-30); CHLORIDE 103 mmol/L (98-107); GLUCOSE 110 mg/dL (75-110); POTASSIUM 3.8 mmol/L (3.6-5.0); TOTAL PROTEIN 7.2 g/dL (6.3-8.2)
--- NOTE | 2020-01-29 18:55 | Non Stress Test Report ---
Non Stress Test Datetime Report Generated by CPN: 01/29/2020 18:55 DEMOGRAPHIC Test Number: 1 EGA NST: 33.5 INDICATION Indication for Study (NST) Other: pre e work up VITAL SIGNS Temperature - NST: 97.9 Pulse - NST: 77 RESP - NST: 16 NBPSYS NST: 121 NBPDIA NST: 68 URINE RESULTS Urine Protein, NST: Negative Urine Ketones - NST: Negative Urine Glucose - NST: Negative Urine Blood - NST: Negative MONITORING Monitor Explained: Monitor Explained; Test Explained; Patient Verbalized Understanding Time on Monitor: 01/29/2020 17:09 Time off Monitor: 01/29/2020 18:30 NST Duration: 81 NST INTERVENTIONS NST Interventions: PO Hydration Physician Notified NST: Dr. Rock BABY A: [id number] BABY A Movement : Present Contraction Frequency : None FHR Baseline : 140 Accelerations : 15X15 Decelerations : None Variability : Moderate 6-25bpm NST Review: Meets Criteria for Reactive NST NST Review and Verified By : JNiebuhr,RN NST Results: Reactive NST REPORT Report Trigger: Send Report
== END 2020-01-29 18:53 | disposition home or self-care (01) ==
LOC: LC 16:50
PROVIDERS: ATTEND Obstetrics & Gynecology
DX: O26.893 Other specified pregnancy related conditions, third trimester (principal); R51 Headache; Z3A.33 33 weeks gestation of pregnancy
CPT/HCPCS: 36415; 59025; 80053; 80307; 81001; 82570; 83615; 84156; 84550; 85025

== ENCOUNTER 2020-02-18 15:53 | Outpatient (CLI) | payer MEDICAID ==
[2020-02-18 16:27] LABS: ABSOLUTE EOSINOPHILS # (AUTO) 0.3 10^3/uL (0.0-0.6); ABSOLUTE LYMPHOCYTES (AUTO) 2.3 10^3/uL (0.5-4.7); ABSOLUTE MONOCYTES (AUTO) 0.7 10^3/uL (0.1-1.4); ABSOLUTE NEUT (AUTO) 3.6 10^3/uL (1.7-8.2); BASOPHILS % (AUTO) 0.4 % (0-2); EOSINOPHILS % (AUTO) 3.8 % (0-6); HEMATOCRIT 31.6 % (36.0-47.0); HEMOGLOBIN 10.3 g/dL (12.0-15.5); LYMPHOCYTES % (AUTO) 33.8 % (13-45); MEAN CORPUSCULAR HEMOGLOBIN 24.6 pg (27.0-33.4); MEAN CORPUSCULAR HGB CONC 32.5 g/dL (32.0-36.0); MEAN CORPUSCULAR VOLUME 76 fl (80-97); MONOCYTES % (AUTO) 10.1 % (3-13); PLATELET COUNT 207 10^3/uL (150-450); RED BLOOD COUNT 4.16 10^6/uL (3.72-5.28); RED CELL DISTRIBUTION WIDTH 16.6 % (11.5-14.0); SEGMENTED NEUTROPHILS % (AUTO) 51.9 % (42-78); TOTAL CELLS COUNTED % (AUTO) 100 %; WHITE BLOOD COUNT 6.9 10^3/uL (4.0-10.5)
[2020-02-18 16:28] LABS: APPEARANCE,URINE SLIGHTLY-CLOUDY; BILIRUBIN,URINE NEGATIVE (NEGATIVE); COLOR,URINE YELLOW; GLUCOSE, URINE NEGATIVE (NEGATIVE); KETONES,URINE NEGATIVE (NEGATIVE); LEUKOCYTE ESTERASE,URINE MODERATE (NEGATIVE); NITRITE,URINE NEGATIVE (NEGATIVE); PROTEIN,URINE NEGATIVE (NEGATIVE); URINE SPECIFIC GRAVITY 1.013; UROBILINOGEN,URINE NEGATIVE mg/dL (<2.0)
[2020-02-18 16:31] LABS: URINE AMPHETAMINES SCREEN NEGATIVE; URINE BARBITURATES SCREEN NEGATIVE; URINE BENZODIAZEPINES SCREEN NEGATIVE; URINE COCAINE SCREEN NEGATIVE; URINE MARIJUANA (THC) SCREEN NEGATIVE; URINE METHADONE SCREEN NEGATIVE; URINE PHENCYCLIDINE SCREEN NEGATIVE
--- NOTE | 2020-02-18 16:51 | Non Stress Test Report ---
Non Stress Test Datetime Report Generated by CPN: 02/18/2020 16:51 DEMOGRAPHIC EGA NST: 36.4 INDICATION Indication for Study (NST) Other: pre-eclamptic eval VITAL SIGNS Temperature - NST: 97.4 Pulse - NST: 76 RESP - NST: 18 NBPSYS NST: 102 NBPDIA NST: 58 MONITORING Monitor Explained: Monitor Explained; Test Explained; Patient Verbalized Understanding Time on Monitor: 02/18/2020 16:09 Time off Monitor: 02/18/2020 16:49 NST Duration: 40 NST INTERVENTIONS NST Interventions: PO Hydration; Reposition Patient Physician Notified NST: C. Blunt, CNM BABY A: [id number] BABY A Movement : Present Contraction Frequency : none FHR Baseline : 140 Accelerations : 15X15 Decelerations : None Variability : Moderate 6-25bpm NST Review: Meets Criteria for Reactive NST NST Review and Verified By : SABRA Pollock NST Results: Reactive NST REPORT Report Trigger: Send Report
[2020-02-18 16:56] LABS: ALBUMIN 3.8 g/dL (3.5-5.0); ALKALINE PHOSPHATASE 96 U/L (38-126); ANION GAP 7 (5-19); ASPARTATE AMINO TRANSFERASE 26 U/L (14-36); BILIRUBIN,TOTAL 0.8 mg/dL (0.2-1.3); BLOOD UREA NITROGEN 9 mg/dL (7-20); CALCIUM 9.5 mg/dL (8.4-10.2); CARBON DIOXIDE 22 mmol/L (22-30); CHLORIDE 104 mmol/L (98-107); GLUCOSE 74 mg/dL (75-110); POTASSIUM 4.1 mmol/L (3.6-5.0); TOTAL PROTEIN 7.1 g/dL (6.3-8.2); URIC ACID 4.8 mg/dL (2.5-6.2)
[2020-02-18 17:14] LABS: UR PRO/CREAT RATIO RESULT 0.2 mg/mg (0.0-0.2); URINE CREATININE 74.7 mg/dL (16-327); URINE PROTEIN 11.6 mg/dL (<12)
== END 2020-02-18 17:35 | disposition home or self-care (01) ==
LOC: LC 15:53
PROVIDERS: ATTEND Obstetrics & Gynecology Gynecology
DX: O12.13 Gestational proteinuria, third trimester (principal); Z3A.36 36 weeks gestation of pregnancy
CPT/HCPCS: 59025; 80053; 80307; 81001; 82570; 83615; 84156; 84550; 85025

== ENCOUNTER 2020-02-27 02:20 | Inpatient (IN) | payer MEDICAID ==
[2020-02-27 02:59] LABS: APPEARANCE,URINE CLOUDY; BILIRUBIN,URINE NEGATIVE (NEGATIVE); COLOR,URINE YELLOW; GLUCOSE, URINE NEGATIVE (NEGATIVE); KETONES,URINE NEGATIVE (NEGATIVE); LEUKOCYTE ESTERASE,URINE NEGATIVE (NEGATIVE); NITRITE,URINE NEGATIVE (NEGATIVE); PROTEIN,URINE NEGATIVE (NEGATIVE); URINE SPECIFIC GRAVITY 1.018; UROBILINOGEN,URINE NEGATIVE mg/dL (<2.0)
[2020-02-27 03:20] LABS: URINE AMPHETAMINES SCREEN NEGATIVE; URINE BARBITURATES SCREEN NEGATIVE; URINE BENZODIAZEPINES SCREEN NEGATIVE; URINE COCAINE SCREEN NEGATIVE; URINE MARIJUANA (THC) SCREEN NEGATIVE; URINE METHADONE SCREEN NEGATIVE; URINE PHENCYCLIDINE SCREEN NEGATIVE
[2020-02-27] MEDS ORDERED: RINGERS SOLUTION,LACTATED 1,000 ML IV PRN (03:50)
[2020-02-27] MEDS ORDERED: OXYTOCIN 10 UNIT/ML VIAL ONE (03:50)
[2020-02-27] MEDS ORDERED: RINGERS SOLUTION,LACTATED 1,000 ML IV ONE (03:50)
[2020-02-27] MEDS ORDERED: PENICILLIN G POTASSIUM 5,000,000 UNIT in DEXTROSE 5%-WATER 100 ML IV ONE (03:50)
[2020-02-27] MEDS ORDERED: MISOPROSTOL 0.2 MG TABLET ONE (03:51)
[2020-02-27] MEDS ORDERED: OXYTOCIN/0.9 % SODIUM CHLORIDE 30 UNIT/500 ML RTUINJ ONE (03:51)
[2020-02-27] MEDS ORDERED: LIDOCAINE 1% INJ-PF (10 MG/ML) 30 ML SDV ONE (03:51)
[2020-02-27] MEDS ORDERED: PENICILLIN G-K 5 MILLION UNIT VIAL ONE (03:54)
[2020-02-27 04:18] LABS: ABSOLUTE BASOPHILS # (AUTO) 0.1 10^3/uL (0.0-0.2); ABSOLUTE EOSINOPHILS # (AUTO) 0.2 10^3/uL (0.0-0.6); ABSOLUTE LYMPHOCYTES (AUTO) 3.1 10^3/uL (0.5-4.7); ABSOLUTE MONOCYTES (AUTO) 0.6 10^3/uL (0.1-1.4); ABSOLUTE NEUT (AUTO) 6.2 10^3/uL (1.7-8.2); BASOPHILS % (AUTO) 0.8 % (0-2); EOSINOPHILS % (AUTO) 1.6 % (0-6); HEMATOCRIT 34.1 % (36.0-47.0); HEMOGLOBIN 10.7 g/dL (12.0-15.5); LYMPHOCYTES % (AUTO) 30.7 % (13-45); MEAN CORPUSCULAR HEMOGLOBIN 24.3 pg (27.0-33.4); MEAN CORPUSCULAR HGB CONC 31.5 g/dL (32.0-36.0); MEAN CORPUSCULAR VOLUME 77 fl (80-97); MONOCYTES % (AUTO) 5.5 % (3-13); PLATELET COUNT 311 10^3/uL (150-450); RED BLOOD COUNT 4.43 10^6/uL (3.72-5.28); RED CELL DISTRIBUTION WIDTH 15.8 % (11.5-14.0); SEGMENTED NEUTROPHILS % (AUTO) 61.4 % (42-78); TOTAL CELLS COUNTED % (AUTO) 100 %; WHITE BLOOD COUNT 10.1 10^3/uL (4.0-10.5)
--- NOTE | 2020-02-27 04:21 | Admission Physical ---
Datetime Report Generated by CPN: 02/27/2020 04:20 CURRENT ADMISSION Chief Complaint: Uterine Contractions Indication for Induction: Not Applicable Admit Impression : Term, Intrauterine Admit Plan: Admit to Unit; Initiate Labor Protocol ALLERGIES Medication Allergies: No Medication Allergies: iodine (02/18/2020); shrimp (02/18/2020) Latex: No Latex Allergies Food Allergies: Shrimp Environmental Allergies: none OBSTETRICAL HISTORY EDC: 03/13/2020 00:00 : 7 Para: 5 Term: 3 : 1 SAB: 1 IAB: 0 Ectopic: 0 Livin Cesareans: 0 VBACs: 0 Multiple Births: 0 Gestational Diabetes: No Rh Sensitization: No Incompetent Cervix: No BONI: No Infertility: No ART Treatment: No Uterine Anomaly: No IUGR: Yes Hx Previous C/S: No Macrosomia: No Hx Loss/Stillborn: No PIH: Yes Hx : No Placenta Previa/Abruption: No Depression/PP Depression: No PTL/PROM: Yes Post Hemorrhage: No Current Procedures: Ultrasound; NST Obstetrical History Comments: G1-2012 G2-2012 SAB G3-2013 G4-2016 ; DVT, started on Lovenox G5 G6-2017 IUGR G7- SEE RECORDS Alcohol: No Marijuana : No Cocaine: No Other Illicit Drugs: No Cigarettes: Never Smoker. 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: No Heart Disease: No Hosp/Surgery: No Autoimmune Disorder: No Anesthetic Complications: No Kidney Disease: No Abnormal Pap Smear: No Neuro/Epilepsy: No Psychiatric Disorders: Yes Other Medical Diseases: No Hepatitis/Liver Disease: No Significant Family History: No Varicosities/Phlebitis: No Trauma/Violence : No Thyroid Dysfunction: No Medical History Comments: Pituatary tumor, DVTs, Asthma INFECTIOUS HISTORY Gonorrhea: No Genital Herpes: No Chlamydia: No Tuberculosis: No Syphilis: No Hepatitis: No HIV/AIDS Exposure: No Rash or Viral Illness: No HPV: No PHYSICAL EXAM General: Normal HEENT: Normal Neurologic: Normal Thyroid: Normal Heart: Normal Lungs: Normal Breast: Deferred Back: Normal Abdomen: Normal Genitourinary Exam: Normal Extremities: Normal DTRs: Normal Pelvic Type: Adequate FETUS A EGA: 37.6 PLANS FOR LABOR AND DELIVERY Labor and Delivery: None Pain Management: Epidural Feeding Preference: Breast Circumcision: Yes INFORMED CONSENT Signature: with User ID: [email or web address]
[2020-02-27] MEDS ORDERED: NA PHOS,M-B/NA PHOS,DI-BA (ADULT) 133 ML ENEMA PR PRN (04:24)
[2020-02-27] MEDS ORDERED: PSEUDOEPHEDRINE HCL 30 MG TABLET PO PRN (04:24)
[2020-02-27] MEDS ORDERED: PROMETHAZINE HCL INJ 25 MG/1 ML VIAL IV PRN ×2 (04:24→15:30)
[2020-02-27] MEDS ORDERED: DIPH/PERTUSS(ACELL)/TETANUS VAC/PF 0.5 ML SYR (>=10YO) IM PRN ×2 (04:24→15:30)
[2020-02-27] MEDS ORDERED: MEASLES,MUMPS&RUBELLA VACC/PF 0.5 ML VIAL SUBCUT PRN ×2 (04:24→15:30)
[2020-02-27] MEDS ORDERED: PROMETHAZINE HCL 25 MG SUPP.RECT PR PRN (04:24)
[2020-02-27] MEDS ORDERED: ACETAMINOPHEN WITH CODEINE #3 TABLET PO PRN ×2 (04:24)
[2020-02-27] MEDS ORDERED: GLYCERIN/WITCH HAZEL LEAF 1 EACH MED..WIPE TP PRN (04:24)
[2020-02-27] MEDS ORDERED: DIBUCAINE 1% OINTMENT 28 GM TP PRN (04:24)
[2020-02-27] MEDS ORDERED: ACETAMINOPHEN 650 MG SUPP.RECT PR PRN (04:24)
[2020-02-27] MEDS ORDERED: BENZOCAINE/MENTHOL AEROSOL SPRAY 56 ML TOP PRN (04:24)
[2020-02-27] MEDS ORDERED: OXYTOCIN/0.9 % SODIUM CHLORIDE 30 UNIT/500 ML RTUINJ IV PRN (04:24)
[2020-02-27] MEDS ORDERED: ZOLPIDEM TARTRATE 5 MG TABLET PO PRN (04:24)
[2020-02-27] MEDS ORDERED: PROMETHAZINE HCL 25 MG TABLET PO PRN (04:24)
[2020-02-27] MEDS ORDERED: MAGNESIUM HYDROXIDE SUSP 30 ML UDCUP PO PRN (04:24)
[2020-02-27] MEDS ORDERED: DIPHENHYDRAMINE HCL 25 MG CAPSULE PO PRN (04:24)
[2020-02-27] MEDS ORDERED: ACETAMINOPHEN 325 MG TABLET ONE (06:05)
--- NOTE | 2020-02-27 06:28 | Delivery Summary ---
Del Sum A-C Datetime Report Generated by CPN: 02/27/2020 06:28 DELIVERY PERSONNEL DELIVERY PERSONNEL: [id number] Delivery Doctor:: Jaun Feng MD Labor and Delivery Nurse:: Marge Epstein RN Labor and Delivery Nurse:: Nelida Thorne RN [place]ittling Room Operator/CARTOGRAPHIC AIDE: Donya Green, ST MATERNAL INFORMATION Delivery Anesthesia: None Medications After Delivery: Pitocin Bolus-Please Comment Meds After Delivery Comment: Pitocin 30 units/500 ml NSS Delivery QBL: 50 Maternal Complications: Precipitous Labor (<3hrs) LABOR SUMMARY EDC: 03/13/2020 00:00 No. Babies in Womb: 1 Attempted: No Labor Anesthesia: None LABOR INFORMATION Reason for Induction: Not Applicable Onset of Labor: 02/27/2020 02:45 Complete Dilatation: 02/27/2020 04:08 Oxytocin: N/A Group B Beta Strep: Positive Antibiotics # of Doses: 1 Antibiotics Time of Last Dose: PCN Steroids Given: None Reason Steroids Not Administered: Not Applicable MEMBRANES Membranes Rupture Method: Spontaneous Rupture of Membranes: 02/27/2020 04:10 Length of Rupture (hr): 0.02 Amniotic Fluid Color: Clear Amniotic Fluid Amount: Small STAGES OF LABOR Stage 1 hr: 1 Stage 1 min: 23 Stage 2 hr: 0 Stage 2 min: 3 Stage 3 hr: 0 Stage 3 min: 7 Total Time in Labor hr: 1 Total Time in Labor min: 33 VAGINAL DELIVERY Episiotomy: None Laceration #1: None Laceration Extension #1: N/A Laceration Repair: Not Applicable Sponge Count Correct: N/A Sharps Count Correct: N/A CSECTION DELIVERY Primary Indication: N/A Secondary Indication: N/A CSection Urgency: N/A CSection Incidence: N/A Labor: N/A Elective: N/A CSection Incision: N/A BABY A INFORMATION Delivery Date/Time: 02/27/2020 04:11 Method of Delivery: Vaginal Nurse Controlled Delivery: No Born in Route : No : N/A Forceps: N/A Vacuum Extraction: N/A Shoulder Dystocia : No PRESENTATION/POSITION BABY A Presentation: Cephalic Cephalic Presentation: Vertex Vertex Position: Right Occipital Anterior Breech Presentation: N/A PLACENTA INFORMATION BABY A Placenta Delivery Time : 02/27/2020 04:18 Placenta Method of Delivery: Spontaneous Placenta Status: Delivered SCORES BABY A Heart Rate 1 min: >100 bpm Resp Effort 1 min: Good Cry Reflex Irritability 1 min: Cough or Sneeze or Pulls Away Muscle Tone 1 min: Active Motion Color 1 min: Blue/Pale Resuscitation Effort 1 min: Tactile Stimulation SCORE 1 MIN: 8 Heart Rate 5 min: >100 bpm Resp Effort 5 min: Good Cry Reflex Irritability 5 min: Cough or Sneeze or Pulls Away Muscle Tone 5 min: Active Motion Color 5 min: Body [place], Extremities Blue Resuscitation Effort 5 min: N/A SCORE 5 MIN: 9 INFANT INFORMATION BABY A Gestational Age at Delivery: 37.6 Gestational Status: Early Term- 37- 38.6 Weeks Outcome : Liveborn Infant Condition : Stable Infant Sex: Male IDENTIFICATION BABY A Verification Date/Time: 02/27/2020 04:16 ID Band Number: [id number] Mother's Name Verified: Yes Infant RN Verifying Infant: , RN Additional Verifying Personnel: Ruba MUSIC GRAPHER WEIGHT/LENGTH BABY A Infant Birthweight (gm): 2662 Infant Weight (lb): 5 Infant Weight (oz): 14 Length (in): 19.25 Length (cm): 48.90 CORD INFORMATION BABY A No. Cord Vessels: 3 Nuchal Cord : N/A Cord Blood Taken: Yes-For Storage (Mom's Blood type +) Suction: None ASSESSMENT BABY A Infant Complications: None Physical Findings at Delivery: Other Physical Findings- Other: see nursery assessment Respirations: Appears Normal Skin to Skin: Yes Skin to Skin Time (min): 60 Billing Adjudicator/ALS Called : No Infant Care By: Michell Lim Transferred To: Remains with Mother BABY B INFORMATION : N/A SIGNATURES Signature: with User ID: [email or web address]
[2020-02-27] MEDS: IBUPROFEN 800 MG TABLET PO SCH ×3 (07:11→22:19)
[2020-02-27] MEDS ORDERED: PENICILLIN G POTASSIUM 2,500,000 UNIT in DEXTROSE 5%-WATER 50 ML IV SCH (07:54)
[2020-02-27] MEDS: FAMOTIDINE 20 MG TABLET PO SCH ×2 (10:02→22:20)
[2020-02-27] MEDS: PRENATAL VITAMIN W DHA CAPSULE PO SCH (10:02)
[2020-02-27] MEDS: FERROUS SULFATE 325 MG TABLET PO SCH ×2 (10:03→17:37)
[2020-02-27] MEDS: DOCUSATE SODIUM 100 MG CAPSULE PO SCH ×2 (10:03→17:37)
[2020-02-27] MEDS: SENNOSIDES/DOCUSATE 8.6-50 MG 1 EACH TABLET PO SCH (10:03)
--- NOTE | 2020-02-27 13:29 | PDOC PROGRESS REPORT ---
Subjective-OB Progress Note for:: 02/27/20 Subjective: 29yo G7 now P5 s/p delivery day ppd 1 . Ambulating and voiding without difficulty. Reports pain well controlled with medication, denies any concerns at this time Physical Exam (OB) Vital Signs: Temp Pulse Resp BP Pulse Ox 98.1 F 79 22 H 109/62 96 02/27/20 08:12 02/27/20 08:12 02/27/20 08:12 02/27/20 08:12 02/27/20 08:12 Intake & Output 02/26/20 02/27/20 02/28/20 06:59 06:59 06:59 Weight 91.3 kg - General General Appearance: Appears well In distress: None - PIH/Pre-Eclampsia Clonus: Negative Headache: Absent Epigastric Pain: No Visual Changes: No - Episiotomy/Laceration Site Condition: N/A - Lochia Lochia Amount: Scant < 10 ml Lochia Color: Rubra/Red - Abdomen Description: Soft Hernia Present: No Fundal Description: Firm, Midline Fundal Height: u/u - u/2 - Respiratory Respiratory Status: No respiratory distress - Extremities Upper extremity: Normal inspection Lower extremities: Normal inspection - Neurological Cognition: Normal Orientation: AAOx4 - Psychological Associated symptoms: Normal affect, Normal mood Objective-Diagnostic Laboratory: 02/27/20 04:03 02/27/20 02/27/20 02/27/20 02:35 04:03 04:03 WBC 10.1 RBC 4.43 Hgb 10.7 L Hct 34.1 L MCV 77 L MCH 24.3 L MCHC 31.5 L RDW 15.8 H Plt Count 311 Seg Neutrophils % 61.4 Urine Color YELLOW Urine Appearance CLOUDY Urine pH 7.0 Ur Specific [place] 1.018 Urine Protein NEGATIVE Urine Glucose (UA) NEGATIVE Urine Ketones NEGATIVE Urine Blood NEGATIVE Urine Nitrite NEGATIVE Ur Leukocyte Esterase NEGATIVE Blood Type O POSITIVE Antibody Screen NEGATIVE Assessment and Plan(PN) - Assessment and Plan (1) History of depression Is this a current diagnosis for this admission?: Yes Plan: continue to monitor for s/s of depression (2) DVT complicating Qualifiers: Trimester: unspecified trimester Qualified Code(s): O22.30 - Deep phlebothrombosis in , unspecified trimester; I82.409 - Acute embolism and thrombosis of unspecified deep veins of unspecified lower extremity Is this a current diagnosis for this admission?: Yes Plan: will continue lovenox as planned (3) Delivery normal Is this a current diagnosis for this admission?: Yes Plan: routine pp care (4) Qualifiers: Weeks of gestation: 37 weeks Qualified Code(s): Z3A.37 - 37 weeks gestation of Is this a current diagnosis for this admission?: Yes Plan: delivered (5) Anemia complicating , third trimester Is this a current diagnosis for this admission?: Yes Plan: increase dietary iron and FeSO4 BID - Time Spent with Patient Time with patient: Less than 15 minutes Medications reviewed and adjusted accordingly: Yes - Disposition Anticipated Discharge: Home Within: within 48 hours
[2020-02-27] MEDS: ENOXAPARIN SODIUM INJ 40 MG/0.4 ML DISP.SYRIN SUBCUT SCH (13:33)
[2020-02-28] MEDS: IBUPROFEN 800 MG TABLET PO SCH ×3 (05:20→21:46)
[2020-02-28 06:56] LABS: HEMATOCRIT 33.7 % (36.0-47.0); HEMOGLOBIN 10.8 g/dL (12.0-15.5); MEAN CORPUSCULAR HEMOGLOBIN 24.6 pg (27.0-33.4); MEAN CORPUSCULAR VOLUME 77 fl (80-97); PLATELET COUNT 251 10^3/uL (150-450); RED CELL DISTRIBUTION WIDTH 16.2 % (11.5-14.0); WHITE BLOOD COUNT 10.1 10^3/uL (4.0-10.5)
[2020-02-28] MEDS: DOCUSATE SODIUM 100 MG CAPSULE PO SCH ×2 (09:27→17:29)
[2020-02-28] MEDS: PRENATAL VITAMIN W DHA CAPSULE PO SCH (09:27)
[2020-02-28] MEDS: FAMOTIDINE 20 MG TABLET PO SCH ×2 (09:27→21:47)
[2020-02-28] MEDS: ENOXAPARIN SODIUM INJ 40 MG/0.4 ML DISP.SYRIN SUBCUT SCH (09:27)
[2020-02-28] MEDS: FERROUS SULFATE 325 MG TABLET PO SCH ×2 (09:27→17:29)
[2020-02-28] MEDS: SENNOSIDES/DOCUSATE 8.6-50 MG 1 EACH TABLET PO SCH (09:27)
--- NOTE | 2020-02-28 12:09 | PDOC PROGRESS REPORT ---
Subjective-OB Progress Note for:: 02/28/20 Subjective: reports bleeding slowing, pain controlled with current meds. denies needs Physical Exam (OB) Vital Signs: Temp Pulse Resp BP Pulse Ox 97.7 F 59 L 18 104/53 L 97 02/28/20 07:14 02/28/20 07:14 02/28/20 07:14 02/28/20 07:14 02/28/20 07:14 Intake & Output 02/27/20 02/28/20 02/29/20 06:59 06:59 06:59 Weight 91.3 kg - Abdomen Description: Soft Hernia Present: No Fundal Description: Firm, Midline Fundal Height: u/u - u/2 - Abdominal Distension: No distension Tenderness: Nontender - Extremities Lower extremities: Benjamin's sign - neg Calf: Normal, Nontender Objective-Diagnostic Laboratory: 02/28/20 06:10 02/28/20 06:10 WBC 10.1 RBC 4.40 Hgb 10.8 L Hct 33.7 L MCV 77 L MCH 24.6 L MCHC 32.0 RDW 16.2 H Plt Count 251 Assessment and Plan(PN) - Assessment and Plan (1) History of DVT (deep vein thrombosis) Is this a current diagnosis for this admission?: Yes (2) Delivery normal Is this a current diagnosis for this admission?: Yes - Time Spent with Patient Time with patient: Less than 15 minutes Medications reviewed and adjusted accordingly: Yes - Disposition Anticipated Discharge: Home Within: within 24 hours
[2020-02-29] MEDS: IBUPROFEN 800 MG TABLET PO SCH ×2 (06:08→13:35)
[2020-02-29] MEDS: PRENATAL VITAMIN W DHA CAPSULE PO SCH (09:54)
[2020-02-29] MEDS: DOCUSATE SODIUM 100 MG CAPSULE PO SCH (09:54)
[2020-02-29] MEDS: FERROUS SULFATE 325 MG TABLET PO SCH (09:54)
[2020-02-29] MEDS: FAMOTIDINE 20 MG TABLET PO SCH (09:55)
[2020-02-29] MEDS: SENNOSIDES/DOCUSATE 8.6-50 MG 1 EACH TABLET PO SCH (09:55)
[2020-02-29] MEDS: ENOXAPARIN SODIUM INJ 40 MG/0.4 ML DISP.SYRIN SUBCUT SCH (09:55)
--- NOTE | 2020-02-29 11:56 | PDOC DISCHARGE SUMMARY ---
Impression - Admit/DC Date/PCP Admission Date/Primary Care Provider: 02/27/20 03:55 DB DIAZ MD Discharge Date: 02/29/20 - Discharge Diagnosis (1) History of DVT (deep vein thrombosis) Is this a current diagnosis for this admission?: Yes (2) Delivery normal Is this a current diagnosis for this admission?: Yes - Additional Information Discharge Diet: Regular Discharge Activity: Balance Activity w/Rest, Pelvic Rest Referrals: DB DIAZ MD [Primary Care Provider] - Home Medications: Prenat 115/Iron Fum/Folic/Dss [ 19 Tablet] 1 tab PO DAILY 04/30/18 Albuterol Sulfate [Proair HFA Inhalation Aerosol 8.5 gm MDI] 1 puff IH Q4 PRN 01/29/20 Enoxaparin Sodium [Lovenox Inj 40 mg/0.4 ml Disp.syrin] 40 mg SUBCUT BID 01/29/20 Ibuprofen [Motrin 800 mg Tablet] 800 mg PO Q8 #0 tablet 02/29/20 Results Laboratory Results: WBC 10.1 10^3/uL (4.0-10.5) 02/28/20 06:10 RBC 4.40 10^6/uL (3.72-5.28) 02/28/20 06:10 Hgb 10.8 g/dL (12.0-15.5) L 02/28/20 06:10 Hct 33.7 % (36.0-47.0) L 02/28/20 06:10 MCV 77 fl (80-97) L 02/28/20 06:10 MCH 24.6 pg (27.0-33.4) L 02/28/20 06:10 MCHC 32.0 g/dL (32.0-36.0) 02/28/20 06:10 RDW 16.2 % (11.5-14.0) H 02/28/20 06:10 Plt Count 251 10^3/uL (150-450) 02/28/20 06:10 Lymph % (Auto) 30.7 % (13-45) 02/27/20 04:03 [place] % (Auto) 5.5 % (3-13) 02/27/20 04:03 Eos % (Auto) 1.6 % (0-6) 02/27/20 04:03 Baso % (Auto) 0.8 % (0-2) 02/27/20 04:03 Absolute Neuts (auto) 6.2 10^3/uL (1.7-8.2) 02/27/20 04:03 Absolute Lymphs (auto) 3.1 10^3/uL (0.5-4.7) 02/27/20 04:03 Absolute Monos (auto) 0.6 10^3/uL (0.1-1.4) 02/27/20 04:03 Absolute Eos (auto) 0.2 10^3/uL (0.0-0.6) 02/27/20 04:03 Absolute Basos (auto) 0.1 10^3/uL (0.0-0.2) 02/27/20 04:03 Seg Neutrophils % 61.4 % (42-78) 02/27/20 04:03 Urine Color YELLOW 02/27/20 02:35 Urine Appearance CLOUDY 02/27/20 02:35 Urine pH 7.0 (5.0-9.0) 02/27/20 02:35 Ur Specific [place] 1.018 02/27/20 02:35 Urine Protein NEGATIVE mg/dL (NEGATIVE) 02/27/20 02:35 Urine Glucose (UA) NEGATIVE mg/dL (NEGATIVE) 02/27/20 02:35 Urine Ketones NEGATIVE mg/dL (NEGATIVE) 02/27/20 02:35 Urine Blood NEGATIVE (NEGATIVE) 02/27/20 02:35 Urine Nitrite NEGATIVE (NEGATIVE) 02/27/20 02:35 Urine Bilirubin NEGATIVE (NEGATIVE) 02/27/20 02:35 Urine Urobilinogen NEGATIVE mg/dL (<2.0) 02/27/20 02:35 Ur Leukocyte Esterase NEGATIVE (NEGATIVE) 02/27/20 02:35 Urine Ascorbic Acid 40 (NEGATIVE) H 02/27/20 02:35 Urine Opiates Screen NEGATIVE 02/27/20 02:35 Urine Methadone Screen NEGATIVE 02/27/20 02:35 Ur Barbiturates Screen NEGATIVE 02/27/20 02:35 Ur Phencyclidine Scrn NEGATIVE 02/27/20 02:35 Ur Amphetamines Screen NEGATIVE 02/27/20 02:35 U Benzodiazepines Scrn NEGATIVE 02/27/20 02:35 Urine Cocaine Screen NEGATIVE 02/27/20 02:35 U Marijuana (THC) Screen NEGATIVE 02/27/20 02:35 RPR NONREACTIVE (NONREACTIVE) 02/27/20 04:03 Blood Type O POSITIVE 02/27/20 04:03 Antibody Screen NEGATIVE 02/27/20 04:03 Plan Plan of Treatment: follow up in 4 weeks at [facility] for post check
[2020-02-29 12:31] VITALS: BP 109/62
== END 2020-02-29 14:30 | disposition home or self-care (01) | DRG 807 ==
LOC: LC 02:20 → LR 03:55 → 2S 06:19
PROVIDERS: ADMIT Obstetrics & Gynecology Gynecology; ATTEND Obstetrics & Gynecology Gynecology
PROC: 10E0XZZ Delivery of Products of Conception, External Approach (ICD-10-PCS; principal; 2020-02-27)
DX: O62.3 Precipitate labor (principal); Z37.0 Single live birth; O99.824 Streptococcus B carrier state complicating childbirth; Z3A.37 37 weeks gestation of pregnancy; O99.53 Diseases of the respiratory system complicating the puerperium; J45.909 Unspecified asthma, uncomplicated; Z86.718 Personal history of other venous thrombosis and embolism; Z91.013 Allergy to seafood; Z79.51 Long term (current) use of inhaled steroids; Z79.01 Long term (current) use of anticoagulants
CPT/HCPCS: 36415; 80307; 81005; 85025; 85027; 86592; 86850; 86900; 86901; J1650; J2540; J2590; J3490; J7060

== ENCOUNTER 2020-06-07 03:37 | Emergency (ER) | payer MEDICAID ==
[2020-06-07 03:46] VITALS: BP 133/87
== END 2020-06-07 04:44 | disposition left against medical advice (07) ==
LOC: ER 03:37
DX: Z53.21 Procedure and treatment not carried out due to patient leaving prior to being seen by health care provider (principal)